=== PATIENT | female | born 1970 | race Caucasian/White ===

== ENCOUNTER 2016-09-20 11:11 | Inpatient (IN) | payer OTHER ==
[2016-09-20 12:23] VITALS: BMI 18.3
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
[2016-09-20] MEDS ORDERED: LOPERAMIDE HCL 2 MG CAPSULE PO PRN (15:09)
[2016-09-20] MEDS ORDERED: MAGNESIUM CITRATE 300 ML BOTTLE PO PRN (15:09)
[2016-09-20] MEDS ORDERED: P-EPHED 60MG/TRIPROLIDI 2.5MG TABLET PO PRN (15:09)
[2016-09-20] MEDS ORDERED: ACETAMINOPHEN 325 MG TABLET (FP) PO PRN (15:09)
[2016-09-20] MEDS ORDERED: NICOTINE POLACRILEX 2 MG GUM BUC PRN (15:09)
[2016-09-20] MEDS ORDERED: MAGNESIUM HYDROX 2400MG/30ML ORAL SUSPENSION 30 ML CUP PO PRN (15:09)
[2016-09-20] MEDS ORDERED: MAG HYDROX/AL HYDROX/SIMETH 30 ML UNIT-DOSE CUP PO PRN (15:09)
[2016-09-20] MEDS ORDERED: guaiFENesin/D-METHORPHAN HB 10 ML UNIT-DOSE CUPS PO PRN (15:09)
[2016-09-20] MEDS ORDERED: MENTHOL/PHENOL 1 EACH UD MM PRN (15:09)
[2016-09-20] MEDS ORDERED: METHADONE HCL 10 MG TABLET (FOR DETOX USE ONLY) PO ONE ×2 (15:18→23:00)
[2016-09-20] MEDS: diazePAM 5 MG TABLET PO PRN ×2 (15:43→22:54)
[2016-09-20] MEDS: NICOTINE 21 MG/24 HOURS TOPICAL PATCH TD SCH (15:44)
[2016-09-20 22:34] LABS: URINE APPEARANCE CLEAR; URINE BILIRUBIN NEGATIVE (NEGATIVE); URINE BLOOD NEGATIVE (NEGATIVE); URINE COLOR YELLOW; URINE GLUCOSE (UA) NEGATIVE (NEGATIVE); URINE KETONE NEGATIVE (NEGATIVE); URINE LEUK ESTERASE NEGATIVE (NEGATIVE); URINE NITRITE NEGATIVE (NEGATIVE); URINE PROTEIN NEGATIVE (NEGATIVE); URINE UROBILINOGEN NEGATIVE E.U./dl (0.2-1.0)
[2016-09-20] MEDS: diphenhydrAMINE HCL 50 MG CAPSULE PO PRN (22:52)
[2016-09-20] MEDS: THIAMINE HCL 100 MG TABLET (FP) PO SCH (22:52)
[2016-09-20] MEDS: SULFAMETHOXAZOLE/TRIMETHOPRIM 800MG/160MG D.S. TABLET PO SCH (22:52)
[2016-09-21] MEDS: diazePAM 5 MG TABLET PO PRN ×5 (01:44→22:42)
[2016-09-21] MEDS: diphenhydrAMINE HCL 50 MG CAPSULE PO PRN (01:44)
[2016-09-21] MEDS ORDERED: METHADONE HCL 10 MG TABLET (FOR DETOX USE ONLY) PO ONE (10:00)
[2016-09-21 10:26] LABS: MCH 31.5 pg (25.7-33.7); MCHC 32.5 g/dl (32.0-36.0); MEAN PLT VOLUME 9.6 fl (7.5-11.1); PLATELET COUNT 268 K/MM3 (134-434); RDW 15.2 % (11.6-15.6); WHITE BLOOD COUNT 6.9 K/mm3 (4.0-10.0)
[2016-09-21 10:51] LABS: ALBUMIN 3.6 g/dl (3.4-5.0); ANION GAP 9 (8-16); BILIRUBIN,TOTAL 0.4 mg/dL (0.2-1.0); CALCIUM 8.6 mg/dL (8.5-10.1); CO2 28 mmol/L (21-32); CREATININE 0.8 mg/dL (0.55-1.02); GLUCOSE,RANDOM 93 mg/dL (74-106); SGOT/AST 30 U/L (15-37); SGPT/ALT 34 U/L (12-78); TOT PROT 7.3 g/dl (6.4-8.2)
[2016-09-21 10:52] LABS: ALK PHOS 68 U/L (45-117)
[2016-09-21] MEDS: SULFAMETHOXAZOLE/TRIMETHOPRIM 800MG/160MG D.S. TABLET PO SCH ×2 (11:08→22:42)
[2016-09-21] MEDS: NICOTINE 21 MG/24 HOURS TOPICAL PATCH TD SCH (11:09)
[2016-09-21] MEDS: PRENATAL VITAMINS W/ FOLIC ACID TABLET (FP) PO SCH (11:09)
[2016-09-21] MEDS: IBUPROFEN 400 MG TABLET (FP) PO PRN (11:17)
[2016-09-21 11:19] LABS: HIV 1 & 2 AB NEGATIVE; HIV 1 AGp24 NEGATIVE
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
--- NOTE | 2016-09-21 13:25 | EKG ---
Test Reason : Blood Pressure : / mmHG Vent. Rate : 076 BPM Atrial Rate : 076 BPM P-R Int : 126 ms QRS Dur : 080 ms QT Int : 432 ms P-R-T Axes : 060 015 002 degrees QTc Int : 486 ms NORMAL SINUS RHYTHM NONSPECIFIC T WAVE ABNORMALITY PROLONGED QT ABNORMAL ECG NO PREVIOUS ECGS AVAILABLE Confirmed by JAMARCUS DENG, DIPIKA ([id number]) on 09/21/2016 1:24:35 PM Referred By: Confirmed By:DIPIKA RICKETTS MD
--- NOTE | 2016-09-21 13:32 | PN ---
BHS COWS - Scale Resting Pulse: 1= [place] 81-100 Sweatin=Flushed/Facial Moisture Restless Observation: 3= Extraneous Movement Pupil Size: 1= Pupils >than Normal Bone or Joint Aches: 2= Severe Diffuse Aches Runny Nose/ Eye Tearin= Runny Nose/Eyes GI Upset > 30mins: 2= Nausea/Diarrhea Tremor Observation of Outstretched Hands: 2= Slight Tremor Visible Yawning Observation: 1= 1-2x During Session Anxiety or Irritability: 2=Irritable/Anxious Goose Flesh Skin: 0=Smooth Skin COWS Score: 18 BHS Progress Note (SOAP) Subjective: ALERT,IRRITABLE,ANXIOUS,TREMOR,PAIN IN THE BODY,JOINT AND BACK,INTERRUPTED SLEEP Objective: 09/21/16 13:30 Vital Signs Temperature 97.7 F 09/21/16 10:31 Pulse Rate 92 H 09/21/16 10:31 Respiratory Rate 18 09/21/16 10:31 Blood Pressure 116/82 09/21/16 10:31 O2 Sat by Pulse Oximetry (%) EKG NSR,INVERTED T IN LEAD 3 NO CHEST PAIN,NO SOB,NO DIZZINESS Laboratory Last Values WBC 6.9 K/mm3 (4.0-10.0) D 09/21/16 05:50 RBC 3.84 M/mm3 (3.60-5.2) 09/21/16 05:50 Hgb 12.1 GM/dL (10.7-15.3) 09/21/16 05:50 Hct 37.2 % (32.4-45.2) 09/21/16 05:50 MCV 97.0 fl (80-96) H 09/21/16 05:50 MCHC 32.5 g/dl (32.0-36.0) 09/21/16 05:50 RDW 15.2 % (11.6-15.6) 09/21/16 05:50 Plt Count 268 K/MM3 (134-434) 09/21/16 05:50 MPV 9.6 fl (7.5-11.1) D 09/21/16 05:50 Sodium 144 mmol/L (136-145) 09/21/16 05:50 Potassium 3.7 mmol/L (3.5-5.1) 09/21/16 05:50 Chloride 107 mmol/L (98-107) 09/21/16 05:50 Carbon Dioxide 28 mmol/L (21-32) 09/21/16 05:50 Anion Gap 9 (8-16) 09/21/16 05:50 BUN 10 mg/dL (7-18) D 09/21/16 05:50 Creatinine 0.8 mg/dL (0.55-1.02) 09/21/16 05:50 Creat Clearance w eGFR > 60 (>60) 09/21/16 05:50 Random Glucose 93 mg/dL (74-106) 09/21/16 05:50 Calcium 8.6 mg/dL (8.5-10.1) 09/21/16 05:50 Total Bilirubin 0.4 mg/dL (0.2-1.0) 09/21/16 05:50 AST 30 U/L (15-37) D 09/21/16 05:50 ALT 34 U/L (12-78) D 09/21/16 05:50 Alkaline Phosphatase 68 U/L (45-117) D 09/21/16 05:50 Total Protein 7.3 g/dl (6.4-8.2) 09/21/16 05:50 Albumin 3.6 g/dl (3.4-5.0) 09/21/16 05:50 Urine Color Yellow 09/20/16 22:00 Urine Appearance Clear 09/20/16 22:00 Urine pH 6.0 (5.0-8.0) 09/20/16 22:00 Ur Specific [place] 1.024 (1.001-1.035) 09/20/16 22:00 Urine Protein Negative (NEGATIVE) 09/20/16 22:00 Urine Glucose (UA) Negative (NEGATIVE) 09/20/16 22:00 Urine Ketones Negative (NEGATIVE) 09/20/16 22:00 Urine Blood Negative (NEGATIVE) 09/20/16 22:00 Urine Nitrite Negative (NEGATIVE) 09/20/16 22:00 Urine Bilirubin Negative (NEGATIVE) 09/20/16 22:00 Urine Urobilinogen Negative E.U./dl (0.2-1.0) 09/20/16 22:00 Ur Leukocyte Esterase Negative (NEGATIVE) 09/20/16 22:00 RPR Titer Nonreactive (NONREACTIVE) 09/21/16 05:50 HIV 1&2 Antibody Screen Negative 09/21/16 09:00 HIV P24 Antigen Negative 09/21/16 09:00 Assessment: 09/21/16 13:31 WITHDRAWAL SYMPTOM Plan: CONTINUE DETOX
[2016-09-21] MEDS: QUEtiapine FUMARATE 50 MG TABLET PO SCH (22:42)
[2016-09-21] MEDS: THIAMINE HCL 100 MG TABLET (FP) PO SCH (22:42)
[2016-09-21] MEDS ORDERED: LIDOCAINE VISCOUS 2% ORAL/TOP 100 ML BOTTLE MM PRN (23:26)
[2016-09-22] MEDS: diazePAM 5 MG TABLET PO PRN ×5 (04:20→22:34)
[2016-09-22] MEDS: SULFAMETHOXAZOLE/TRIMETHOPRIM 800MG/160MG D.S. TABLET PO SCH ×2 (09:49→22:34)
[2016-09-22] MEDS: IBUPROFEN 400 MG TABLET (FP) PO PRN ×2 (09:50→15:45)
[2016-09-22] MEDS: PRENATAL VITAMINS W/ FOLIC ACID TABLET (FP) PO SCH (09:50)
[2016-09-22] MEDS: NICOTINE 21 MG/24 HOURS TOPICAL PATCH TD SCH ×2 (09:52→11:01)
[2016-09-22] MEDS ORDERED: METHADONE HCL 5 MG TABLET (FOR DETOX USE ONLY) PO ONE (10:00)
--- NOTE | 2016-09-22 13:48 | PN ---
BHS COWS - Scale Resting Pulse: 1= [place] 81-100 Sweatin= Chills/Flushing Restless Observation: 3= Extraneous Movement Pupil Size: 1= Pupils >than Normal Bone or Joint Aches: 2= Severe Diffuse Aches Runny Nose/ Eye Tearin= Runny Nose/Eyes GI Upset > 30mins: 3= Vomiting/Diarrhea Tremor Observation of Outstretched Hands: 2= Slight Tremor Visible Yawning Observation: 1= 1-2x During Session Anxiety or Irritability: 2=Irritable/Anxious Goose Flesh Skin: 0=Smooth Skin COWS Score: 18 BHS Progress Note (SOAP) Subjective: alert,irritable,anxious,pain in the body and back,tremor Objective: 09/22/16 13:47 Vital Signs Temperature 97 F L 09/22/16 09:41 Pulse Rate 82 09/22/16 09:41 Respiratory Rate 18 09/22/16 09:41 Blood Pressure 107/69 09/22/16 09:41 O2 Sat by Pulse Oximetry (%) Assessment: 09/22/16 13:47 withdrawal symptom Plan: continue detox
[2016-09-22] MEDS: THIAMINE HCL 100 MG TABLET (FP) PO SCH (22:34)
[2016-09-22] MEDS: QUEtiapine FUMARATE 50 MG TABLET PO SCH (22:34)
[2016-09-23] MEDS: diazePAM 5 MG TABLET PO PRN ×2 (04:54→09:32)
--- NOTE | 2016-09-23 09:04 | PN ---
[facility] Progress Note Note: Psychiatry Attending's note : Approached by patient. Issue : request for gabapentin. Previous progress notes reviewed. Acting out behavior on 09/21/16. Medications revisited.Patient seen. Plan : Seroquel is raised to 50 mg po daily + 100 mg po hs Gabapentin is added :100 mg po tid Discussed with patient. She agrees with this plan.
[2016-09-23] MEDS: IBUPROFEN 400 MG TABLET (FP) PO PRN (09:33)
[2016-09-23] MEDS ORDERED: METHADONE HCL 5 MG TABLET (FOR DETOX USE ONLY) PO ONE (10:00)
[2016-09-23] MEDS: QUEtiapine FUMARATE 50 MG TABLET PO SCH (10:51)
[2016-09-23] MEDS: SULFAMETHOXAZOLE/TRIMETHOPRIM 800MG/160MG D.S. TABLET PO SCH ×2 (10:51→22:36)
[2016-09-23] MEDS: NICOTINE 21 MG/24 HOURS TOPICAL PATCH TD SCH (10:52)
[2016-09-23] MEDS: PRENATAL VITAMINS W/ FOLIC ACID TABLET (FP) PO SCH (10:52)
--- NOTE | 2016-09-23 13:05 | PN ---
BHS Progress Note (SOAP) Subjective: ALERT,IRRITABLE,ANXIOUS,INTERRUPTED SLEEP,TREMOR,PAIN IN THE BODY AND BACK Objective: 09/23/16 13:04 Vital Signs Temperature 97.9 F 09/23/16 11:28 Pulse Rate 95 H 09/23/16 11:28 Respiratory Rate 16 09/23/16 11:28 Blood Pressure 100/58 09/23/16 11:28 O2 Sat by Pulse Oximetry (%) Assessment: 09/23/16 13:04 WITHDRAWAL SYMPTOM Plan: CONTINUE DETOX
[2016-09-23] MEDS: GABAPENTIN 100 MG CAPSULE (FP) PO SCH ×2 (14:52→22:36)
[2016-09-23] MEDS: THIAMINE HCL 100 MG TABLET (FP) PO SCH (22:36)
[2016-09-23] MEDS: QUEtiapine FUMARATE 100 MG TABLET (FP) PO SCH (22:36)
[2016-09-24] MEDS: GABAPENTIN 100 MG CAPSULE (FP) PO SCH ×3 (05:41→22:42)
[2016-09-24] MEDS ORDERED: METHADONE HCL 10 MG TABLET (FOR DETOX USE ONLY) PO ONE (10:00)
[2016-09-24] MEDS: QUEtiapine FUMARATE 50 MG TABLET PO SCH (10:56)
[2016-09-24] MEDS: PRENATAL VITAMINS W/ FOLIC ACID TABLET (FP) PO SCH (10:56)
[2016-09-24] MEDS: SULFAMETHOXAZOLE/TRIMETHOPRIM 800MG/160MG D.S. TABLET PO SCH ×2 (10:56→22:42)
[2016-09-24] MEDS: NICOTINE 21 MG/24 HOURS TOPICAL PATCH TD SCH (10:57)
[2016-09-24] MEDS: IBUPROFEN 400 MG TABLET (FP) PO PRN ×2 (11:00→17:49)
[2016-09-24] MEDS: hydrOXYzine PAMOATE 50 MG CAPSULE (FP) PO PRN ×2 (11:16→17:49)
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
[2016-09-24] MEDS ORDERED: LIDOCAINE 5% TOPICAL PATCH TP ONE (14:30)
[2016-09-24] MEDS: QUEtiapine FUMARATE 100 MG TABLET (FP) PO SCH (22:42)
[2016-09-24] MEDS: THIAMINE HCL 100 MG TABLET (FP) PO SCH (22:42)
[2016-09-25] MEDS ORDERED: METHADONE HCL 5 MG TABLET (FOR DETOX USE ONLY) PO ONE (06:00)
[2016-09-25] MEDS: GABAPENTIN 100 MG CAPSULE (FP) PO SCH (06:19)
[2016-09-25] MEDS: hydrOXYzine PAMOATE 50 MG CAPSULE (FP) PO PRN (06:20)
--- NOTE | 2016-09-25 09:31 | DS ---
[facility] Detox Discharge Summary Admission Date: 09/20/16 Discharge Date: 09/25/16 - History Present History: Alcohol Dependence, Cocaine Dependence, Opioid Dependence - Physical Exam Results Vital Signs: Vital Signs Temperature 97.7 F 09/25/16 06:00 Pulse Rate 83 09/25/16 06:00 Respiratory Rate 16 09/25/16 06:00 Blood Pressure 109/75 09/25/16 06:00 O2 Sat by Pulse Oximetry (%) - Treatment Hospital Course: Detox Protocol Followed, Detoxed Safely, Responded well, Discharged Condition Good, Rehab Referral Accepted - Medication Discharge Medications: Ambulatory Orders Quetiapine Fumarate [Seroquel -] 200 mg PO HS 09/20/16 - Diagnosis (1) Cellulitis of left upper extremity Current Visit: Yes Status: Acute (2) Cocaine dependence, uncomplicated Current Visit: Yes Status: Chronic (3) Nicotine dependence Current Visit: Yes Status: Chronic Qualifiers: Nicotine product type: cigarettes Substance use status: uncomplicated Qualified Code(s): F17.210 - Nicotine dependence, cigarettes, uncomplicated (4) Opioid dependence with withdrawal Current Visit: Yes Status: Chronic (5) Bipolar disorder Current Visit: Yes Status: Chronic Qualifiers: Active/Remission status: in partial remission Most recent bipolar episode type: most recent episode unspecified type Qualified Code(s): F31.70 - Bipolar disorder, currently in remission, most recent episode unspecified (6) Non compliance w medication regimen Current Visit: Yes Status: Chronic (7) Schizophrenia Current Visit: Yes Status: Chronic Qualifiers: Schizophrenia type: unspecified Qualified Code(s): F20.9 - Schizophrenia, unspecified (8) Substance induced mood disorder Current Visit: Yes Status: Chronic (9) Weight decrease Current Visit: Yes Status: Chronic (10) Alcohol dependence with uncomplicated withdrawal Current Visit: Yes Status: Chronic - AMA Did Patient Leave Against Medical Advice: No
[2016-09-25] MEDS ORDERED: LIDOCAINE 5% TOPICAL PATCH TP SCH (10:00)
[2016-09-25] MEDS: PRENATAL VITAMINS W/ FOLIC ACID TABLET (FP) PO SCH (10:41)
[2016-09-25] MEDS: SULFAMETHOXAZOLE/TRIMETHOPRIM 800MG/160MG D.S. TABLET PO SCH (10:41)
[2016-09-25] MEDS: QUEtiapine FUMARATE 50 MG TABLET PO SCH (10:41)
[2016-09-25 10:42] VITALS: BP 156/85; PULSE 95; TEMP 97
[2016-09-25] MEDS: IBUPROFEN 400 MG TABLET (FP) PO PRN (11:29)
[2016-09-25] MEDS: NICOTINE 21 MG/24 HOURS TOPICAL PATCH TD SCH (11:34)
== END 2016-09-25 12:30 | disposition home or self-care (01) | DRG 773 ==
LOC: YASAS 11:11 → Y6N 14:27
PROVIDERS: ADMIT Internal Medicine; ATTEND Internal Medicine
PROC: HZ2ZZZZ Detoxification Services for Substance Abuse Treatment (ICD-10-PCS; principal; 2016-09-20)
DX: F11.23 Opioid dependence with withdrawal (principal); F14.20 Cocaine dependence, uncomplicated; F17.210 Nicotine dependence, cigarettes, uncomplicated; F20.9 Schizophrenia, unspecified; F31.9 Bipolar disorder, unspecified; F19.24 Other psychoactive substance dependence with psychoactive substance-induced mood disorder; J45.909 Unspecified asthma, uncomplicated; L03.113 Cellulitis of right upper limb; R52 Pain, unspecified; Z91.14 Patient's other noncompliance with medication regimen; Z87.898 Personal history of other specified conditions; Z86.2 Personal history of diseases of the blood and blood-forming organs and certain disorders involving the immune mechanism; Z91.5 Personal history of self-harm
CPT/HCPCS: 36415; 80053; 81003; 85027; 86593; 87389; 93005; 93010

== ENCOUNTER 2017-02-21 12:00 | Inpatient (IN) | payer OTHER ==
[2017-02-21 16:29] VITALS: BMI 20.2
--- NOTE | 2017-02-21 20:09 | HP ---
COWS - Scale Resting Pulse: 0= [place] 80 or Below Sweatin= Chills/Flushing Restless Observation: 1= Difficult to Sit Still Pupil Size: 1= Pupils >than Normal Bone or Joint Aches: 2= Severe Diffuse Aches Runny Nose/ Eye Tearin= Nasal Congestion GI Upset > 30mins: 2= Nausea/Diarrhea Tremor Observation: 2= Slight Tremor Visible Yawning Observation: 1= 1-2x During Session Anxiety or Irritability: 2=Irritable/Anxious Goose Flesh Skin: 3=Piloerection COWS Score: 16 Admission ROS S - [facility] Chief Complaint: WITHDRAWAL SYMPTOMS Allergies/Adverse Reactions: Allergies Allergy/AdvReac Type Severity Reaction Status Date / Time shellfish derived Allergy Severe Swelling Verified 02/21/17 18:31 No Known Drug Allergies Allergy Verified 02/21/17 18:31 History of Present Illness: 47 Y.O. WOMAN WITH AN EXTENSIVE HISTORY OF HEROIN DEPENDENCE IS HERE SEEKING DETOX. SHE WAS LAST HERE FOR DETOX IN 09/2016. SHE REPORTS SHE HAS A 10 YEAR HISTORY OF ABSTINENCE. Exam Limitations: No Limitations - Ebola screening Have you traveled outside of the country in the last 21 days: No Have you had contact with anyone from an Ebola affected area: No Have you been sick,other than usual withdrawal symptoms: No - Review of Systems Constitutional: Chills, Loss of Appetite, Night Sweats, Changes in sleep, Unintentional Wgt. Loss EENT: reports: Blurred Vision, Tearing Respiratory: reports: No Symptoms reported Cardiac: reports: Lightheadedness GI: reports: Constipated, Diarrhea, Nausea, Poor Appetite : reports: No Symptoms Reported Musculoskeletal: reports: Back Pain Integumentary: reports: Bruising Neuro: reports: No Symptoms reported Endocrine: reports: No Symptoms Reported Hematology: reports: Anemia Psychiatric: reports: Orientated x3 Other Systems: Reviewed and Negative Patient History - Patient Medical History Hx Anemia: Yes (NO MEDS) Hx Asthma: No Hx Chronic Obstructive Pulmonary Disease (COPD): No Hx Cancer: No Hx Cardiac Disorders: No Hx Congestive Heart Failure: No Hx Hypertension: No Hx Hypercholesterolemia: No Hx Pacemaker: No HX Cerebrovascular Accident: No Hx Seizures: Yes (CAN'T RECALL WHEN WAS LAST SZ ) Hx Dementia: No Hx Diabetes: No Hx Gastrointestinal Disorders: No Hx Liver Disease: No Hx Genitourinary Disorders: No Hx Sexually Transmitted Disorders: No Hx Renal Disease (ESRD): No Hx Thyroid Disease: No Hx Human Immunodeficiency Virus (HIV): No (NEGATIVE HX; Last Tested: 06/2016.) Hx Hepatitis C: No (Last Tested: 06/2016: NEGATIVE.) Hx Depression: Yes Hx Suicide Attempt: Yes (cut left hand at age 38; PT. DENIES CURRENT SI / HI.) Hx Bipolar Disorder: Yes (Not on meds) Hx Schizophrenia: Yes (Not on meds ) - Patient Surgical History Past Surgical History: Yes Hx Neurologic Surgery: No Hx Cataract Extraction: No Hx Cardiac Surgery: No Hx Lung Surgery: No Hx Breast Surgery: No Hx Breast Biopsy: No Hx Abdominal Surgery: No Hx Appendectomy: No Hx Cholecystectomy: No Hx Genitourinary Surgery: No Hx Section: Yes (@ AGE 30.) Hx Orthopedic Surgery: No Hx Hysterectomy: No Anesthesia Reaction: No - PPD History Previous Implant?: Yes Date: 01/14/16 Results: 0 mm PPD to be Administered?: Yes - Reproductive History Patient is a Female of Child Bearing Age (11 -55 yrs old): Yes Last Menstrual Period: 09/12/16 Patient : No - Smoking Cessation Smoking history: Current every day smoker Have you smoked in the past 12 months: Yes Aproximately how many cigarettes per day: 20 Cigars Per Day: 0 Hx Chewing Tobacco Use: No Initiated information on smoking cessation: No 'Breaking Loose' booklet given: 02/21/17 - Substance & Tx. History Hx Alcohol Use: No Hx Substance Use: Yes Substance Use Type: Cocaine, Heroin, Marijuana Hx Substance Use Treatment: Yes (Detox: 2-3 mon. ago @ [facility]. Rehab:6 mon. ago but does not recall where) - Substances Abused Alcohol Route: Oral Frequency: Daily Amount used: liquor- 1 pint Age of first use: 12 Date of Last Use: 02/20/17 Heroin Route: Injection Frequency: Daily Amount used: 15 bags Age of first use: 15 Date of Last Use: 02/21/17 Cocaine Route: Smoking Frequency: Daily Amount used: 4 bags Age of first use: 27 Date of Last Use: 02/21/17 Family Disease History - Family Disease History Family Disease History: Other: Father ( HIV), Mother (LOST CONTACT) Admission Physical Exam S - Vital Signs Vital Signs: Vital Signs - 24 hr 02/21/17 16:26 Temperature 96 F L Pulse Rate 71 Respiratory 20 Rate Blood Pressure 100/68 - Physical General Appearance: Yes: Disheveled, Thin, Tremorous, Anxious HEENTM: Yes: Hearing grossly Normal, Normal ENT Inspection, Normocephalic, Normal Voice Respiratory: Yes: Chest Non-Tender, Lungs Clear, Normal Breath Sounds, No Respiratory Distress, No Accessory Muscle Use Neck: Yes: No masses,lesions,Nodules, Trachea in good position Breast: Yes: Breast Exam Deferred Cardiology: Yes: Regular Rhythm, Regular Rate Abdominal: Yes: Normal Bowel Sounds, Non Tender, Flat, Soft Genitourinary: Yes: Other (No complaints reported) Back: Yes: Normal Inspection Musculoskeletal: Yes: full range of Motion, Gait Steady Extremities: Yes: Normal Capillary Refill, Normal Inspection, Normal Range of Motion 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, Normal Mood/Affect, Normal Response Integumentary: Yes: Normal Color, Dry, Warm, Track [place] Lymphatic: Yes: Within Normal Limits - Diagnostic (1) Cocaine dependence, uncomplicated Current Visit: Yes Status: Chronic (2) Nicotine dependence Current Visit: Yes Status: Chronic Qualifiers: Nicotine product type: cigarettes Substance use status: uncomplicated Qualified Code(s): F17.210 - Nicotine dependence, cigarettes, uncomplicated (3) Opioid dependence with withdrawal Current Visit: Yes Status: Chronic (4) Weight decrease Current Visit: Yes Status: Chronic Cleared for Admission [facility] - Detox or Rehab [facility] Level of Care: Medically Managed Detox Regimen/Protocol: Methadone [facility] Breath Alcohol Content Breath Alcohol Content: 0 Urine Pregancy Test - Result Urine Test Results: Negative- NO Line Present Urine Drug Screen - Results Drug Screen Negative: No Urine Drug Screen Results: ARMIN-Cocaine, OPI-Opiates, MTD-Methadone
[2017-02-21] MEDS ORDERED: NICOTINE POLACRILEX 2 MG GUM BC PRN (20:18)
[2017-02-21] MEDS ORDERED: hydrOXYzine PAMOATE 50 MG CAPSULE (FP) PO PRN (20:18)
[2017-02-21] MEDS ORDERED: MAGNESIUM CITRATE 300 ML BOTTLE PO PRN (20:18)
[2017-02-21] MEDS ORDERED: MAGNESIUM HYDROX 2400MG/30ML ORAL SUSPENSION 30 ML CUP PO PRN (20:18)
[2017-02-21] MEDS ORDERED: LOPERAMIDE HCL 2 MG CAPSULE PO PRN (20:18)
[2017-02-21] MEDS ORDERED: MENTHOL/PHENOL 1 EACH UD MM PRN (20:18)
[2017-02-21] MEDS ORDERED: P-EPHED 60MG/TRIPROLIDI 2.5MG TABLET PO PRN (20:18)
[2017-02-21] MEDS ORDERED: METHADONE HCL 10 MG TABLET (FOR DETOX USE ONLY) PO ONE ×2 (20:18→23:00)
[2017-02-21] MEDS ORDERED: MAG HYDROX/AL HYDROX/SIMETH 30 ML UNIT-DOSE CUP PO PRN (20:18)
[2017-02-21] MEDS ORDERED: guaiFENesin/D-METHORPHAN HB 10 ML UNIT-DOSE CUPS PO PRN (20:18)
[2017-02-21] MEDS: diazePAM 5 MG TABLET PO PRN (20:52)
[2017-02-21 22:32] LABS: URINE APPEARANCE CLEAR; URINE BILIRUBIN NEGATIVE (NEGATIVE); URINE BLOOD NEGATIVE (NEGATIVE); URINE COLOR YELLOW; URINE GLUCOSE (UA) NEGATIVE (NEGATIVE); URINE KETONE TRACE (NEGATIVE); URINE LEUK ESTERASE NEGATIVE (NEGATIVE); URINE NITRITE NEGATIVE (NEGATIVE); URINE UROBILINOGEN NEGATIVE mg/dL (0.2-1.0)
[2017-02-21 22:44] LABS: URINE PROTEIN 1+ (NEGATIVE)
[2017-02-21] MEDS: THIAMINE HCL 100 MG TABLET (FP) PO SCH (22:57)
[2017-02-21 23:23] LABS: CALCIUM OXALATE CRYSTALS MANY /hpf (NONE SEEN); URINE MUCUS MODERATE; URINE RBC 2 /hpf (0-3); URINE WBC 3 /hpf (3-5)
[2017-02-22] MEDS: IBUPROFEN 400 MG TABLET (FP) PO PRN (08:38)
[2017-02-22] MEDS: diazePAM 5 MG TABLET PO PRN ×3 (08:38→23:00)
[2017-02-22] MEDS ORDERED: CYCLOBENZAPRINE HCL 10 MG TABLET (FP) PO ONE (09:14)
[2017-02-22] MEDS ORDERED: cloNIDine HCL 0.1 MG TABLET PO ONE (09:15)
[2017-02-22] MEDS ORDERED: METHADONE HCL 10 MG TABLET (FOR DETOX USE ONLY) PO ONE (10:00)
[2017-02-22 11:06] LABS: MCHC 33.2 g/dl (32.0-36.0); MEAN CELL VOLUME 93.5 fl (80-96); MEAN PLT VOLUME 8.1 fl (7.5-11.1); PLATELET COUNT 325 K/MM3 (134-434); WHITE BLOOD COUNT 4.4 K/mm3 (4.0-10.0)
[2017-02-22] MEDS: PRENATAL VITAMINS W/ FOLIC ACID TABLET (FP) PO SCH (11:13)
[2017-02-22] MEDS: NICOTINE 21 MG/24 HOURS TOPICAL PATCH TD SCH (11:15)
[2017-02-22] MEDS: cloNIDine HCL 0.1 MG TABLET PO SCH ×2 (11:15→23:00)
[2017-02-22 11:16] LABS: ALBUMIN 2.8 g/dl (3.4-5.0); ALK PHOS 52 U/L (45-117); ANION GAP 5 (8-16); BILIRUBIN,TOTAL 0.5 mg/dL (0.2-1.0); CALCIUM 8.4 mg/dL (8.5-10.1); CO2 31 mmol/L (21-32); CREATININE 0.6 mg/dL (0.55-1.02); GLUCOSE,RANDOM 82 mg/dL (74-106); SGOT/AST 19 U/L (15-37); SGPT/ALT 16 U/L (12-78); TOT PROT 6.1 g/dl (6.4-8.2)
--- NOTE | 2017-02-22 14:43 | CONSULT ---
[facility] Psychiatric Consult - Data Date of interview: 02/22/17 Admission source: [facility] Identifying data: Readmission to [facility] for this 46 y/o female seeking detox treatment on for heroin and cocaine dependence.Patient is ,a mother of six,domiciled,unemployed and supported on SSI benefits. Substance Abuse History: Presents with a long history of heroin abuse since age 15 (IV use daily),cocaine since age 27 and alcohol from age 12 onwards.Smokes one pack of cigarettes daily.Sporadic use of marijuana. Medical History: Significant for anemia and bronchial asthma. Psychiatric History: Diagnosed with Bipolar Disorder.History of multiple psychiatric hospitalizations ([facility], [facility] in [place]).Patient has beeen lost to follow up for months.History of multiple suicide attempts (wrist-cutting,overdoses with drugs or medications). Physical/Sexual Abuse/Trauma History: Patient declines to discus this domain. Additional Comment: Urine Drug Screen Results: ARMIN-Cocaine, OPI-Opiates, MTD- Methadone.Noted. Mental Status Exam - Mental Status Exam Alert and Oriented to: Time, Place, Person Cognitive Function: Good Patient Appearance: Unkempt, Disheveled (thin) Mood: Withdrawn Affect: Constricted Patient Behavior: Sedated (moderately), Fatigued Speech Pattern: Delayed, Slurred Voice Loudness: Moderately Soft/Quiet Thought Process: Goal Oriented (once awakened) Thought Disorder: Not Present Hallucinations: Denies Suicidal Ideation: Denies Homicidal Ideation: Denies Insight/Judgement: Poor Sleep: Well Appetite: Poor, Weight loss Muscle strength/Tone: Normal Gait/Station: Normal Psychiatric Findings - Problem List ([place] 1, 2,3) (1) Alcohol dependence with uncomplicated withdrawal Current Visit: Yes Status: Acute (2) Opioid dependence with withdrawal Current Visit: Yes Status: Acute (3) Cocaine dependence, uncomplicated Current Visit: Yes Status: Acute (4) Nicotine dependence Current Visit: Yes Status: Acute Qualifiers: Nicotine product type: cigarettes Substance use status: uncomplicated Qualified Code(s): F17.210 - Nicotine dependence, cigarettes, uncomplicated (5) Substance induced mood disorder Current Visit: Yes Status: Acute (6) Non compliance w medication regimen Current Visit: Yes Status: Chronic (7) Bipolar disorder Current Visit: No Status: Chronic Qualifiers: Active/Remission status: in partial remission Most recent bipolar episode type: most recent episode unspecified type Qualified Code(s): F31.70 - Bipolar disorder, currently in remission, most recent episode unspecified Comment: Historical diagnosis.Patient declines medications. - Initial Treatment Plan Initial Treatment Plan: Psychoeducation.Detoxification.Observation.Review of pharmacy claims : no recent data (last activity was on 09/2016).
--- NOTE | 2017-02-22 16:12 | PN ---
S COWS - Scale Resting Pulse: 0= [place] 80 or Below Sweatin= Chills/Flushing Restless Observation: 3= Extraneous Movement Pupil Size: 2= Moderately Dilated Bone or Joint Aches: 2= Severe Diffuse Aches Runny Nose/ Eye Tearin= Nasal Congestion GI Upset > 30mins: 2= Nausea/Diarrhea Tremor Observation of Outstretched Hands: 2= Slight Tremor Visible Yawning Observation: 1= 1-2x During Session Anxiety or Irritability: 2=Irritable/Anxious Goose Flesh Skin: 0=Smooth Skin COWS Score: 16 BHS Progress Note (SOAP) Subjective: alert,irritable,anxious,interrupted sleep,tremor,pin in the body and back Objective: 02/22/17 16:10 Vital Signs Temperature 97.7 F 02/22/17 14:43 Pulse Rate 80 02/22/17 14:43 Respiratory Rate 18 02/22/17 14:43 Blood Pressure 107/76 02/22/17 14:43 O2 Sat by Pulse Oximetry (%) ekg nsr,prolong qt Laboratory Last Values WBC 4.4 K/mm3 (4.0-10.0) D 02/22/17 07:30 RBC 3.34 M/mm3 (3.60-5.2) L 02/22/17 07:30 Hgb 10.4 GM/dL (10.7-15.3) L D 02/22/17 07:30 Hct 31.3 % (32.4-45.2) L D 02/22/17 07:30 MCV 93.5 fl (80-96) 02/22/17 07:30 MCH 31.0 pg (25.7-33.7) 02/22/17 07:30 MCHC 33.2 g/dl (32.0-36.0) 02/22/17 07:30 RDW 15.0 % (11.6-15.6) 02/22/17 07:30 Plt Count 325 K/MM3 (134-434) D 02/22/17 07:30 MPV 8.1 fl (7.5-11.1) D 02/22/17 07:30 Sodium 144 mmol/L (136-145) 02/22/17 07:30 Potassium 3.6 mmol/L (3.5-5.1) 02/22/17 07:30 Chloride 108 mmol/L (98-107) H 02/22/17 07:30 Carbon Dioxide 31 mmol/L (21-32) 02/22/17 07:30 Anion Gap 5 (8-16) L 02/22/17 07:30 BUN 8 mg/dL (7-18) 02/22/17 07:30 Creatinine 0.6 mg/dL (0.55-1.02) D 02/22/17 07:30 Creat Clearance w eGFR > 60 (>60) 02/22/17 07:30 Random Glucose 82 mg/dL (74-106) 02/22/17 07:30 Calcium 8.4 mg/dL (8.5-10.1) L 02/22/17 07:30 Total Bilirubin 0.5 mg/dL (0.2-1.0) D 02/22/17 07:30 AST 19 U/L (15-37) D 02/22/17 07:30 ALT 16 U/L (12-78) D 02/22/17 07:30 Alkaline Phosphatase 52 U/L (45-117) D 02/22/17 07:30 Total Protein 6.1 g/dl (6.4-8.2) L 02/22/17 07:30 Albumin 2.8 g/dl (3.4-5.0) L D 02/22/17 07:30 Urine Color Yellow 02/21/17 20:36 Urine Appearance Clear 02/21/17 20:36 Urine pH 5.0 (5.0-8.0) 02/21/17 20:36 Ur Specific [place] >= 1.030 (1.005-1.025) H 02/21/17 20:36 Urine Protein 1+ (NEGATIVE) H 02/21/17 20:36 Urine Glucose (UA) Negative (NEGATIVE) 02/21/17 20:36 Urine Ketones Trace (NEGATIVE) H 02/21/17 20:36 Urine Blood Negative (NEGATIVE) 02/21/17 20:36 Urine Nitrite Negative (NEGATIVE) 02/21/17 20:36 Urine Bilirubin Negative (NEGATIVE) 02/21/17 20:36 Urine Urobilinogen Negative mg/dL (0.2-1.0) 02/21/17 20:36 Ur Leukocyte Esterase Negative (NEGATIVE) 02/21/17 20:36 Urine RBC 2 /hpf (0-3) 02/21/17 20:36 Urine WBC 3 /hpf (3-5) 02/21/17 20:36 Ur Epithelial Cells Rare /hpf (FEW) 02/21/17 20:36 Calcium Oxalate Crystal Many /hpf (NONE SEEN) 02/21/17 20:36 Urine Mucus Moderate 02/21/17 20:36 RPR Titer Nonreactive (NONREACTIVE) 02/22/17 07:30 Assessment: 02/22/17 16:11 withdrawal symptom Plan: continue detox
[2017-02-22] MEDS: CYCLOBENZAPRINE HCL 10 MG TABLET (FP) PO PRN (23:00)
[2017-02-22] MEDS: THIAMINE HCL 100 MG TABLET (FP) PO SCH (23:00)
[2017-02-23] MEDS: IBUPROFEN 400 MG TABLET (FP) PO PRN (05:40)
[2017-02-23] MEDS: diazePAM 5 MG TABLET PO PRN ×3 (05:40→20:28)
[2017-02-23] MEDS ORDERED: METHADONE HCL 5 MG TABLET (FOR DETOX USE ONLY) PO ONE (10:00)
[2017-02-23] MEDS: CYCLOBENZAPRINE HCL 10 MG TABLET (FP) PO PRN (10:46)
[2017-02-23] MEDS: PRENATAL VITAMINS W/ FOLIC ACID TABLET (FP) PO SCH (10:46)
[2017-02-23] MEDS: NICOTINE 21 MG/24 HOURS TOPICAL PATCH TD SCH (10:47)
[2017-02-23] MEDS: cloNIDine HCL 0.1 MG TABLET PO SCH ×2 (10:47→22:30)
--- NOTE | 2017-02-23 12:19 | PN ---
BHS COWS - Scale Resting Pulse: 1= [place] 81-100 Sweatin= Chills/Flushing Restless Observation: 3= Extraneous Movement Pupil Size: 1= Pupils >than Normal Bone or Joint Aches: 2= Severe Diffuse Aches Runny Nose/ Eye Tearin= Runny Nose/Eyes GI Upset > 30mins: 2= Nausea/Diarrhea Tremor Observation of Outstretched Hands: 2= Slight Tremor Visible Yawning Observation: 1= 1-2x During Session Anxiety or Irritability: 2=Irritable/Anxious Goose Flesh Skin: 0=Smooth Skin COWS Score: 17 BHS Progress Note (SOAP) Subjective: ALERT,IRRITABLE,ANXIOUS,INTERRUPTED SLEEP,TREMOR,PAIN IN THE BODY Objective: 02/23/17 12:18 Vital Signs Temperature 98.2 F 02/23/17 10:00 Pulse Rate 82 02/23/17 10:00 Respiratory Rate 18 02/23/17 10:00 Blood Pressure 105/72 02/23/17 10:00 O2 Sat by Pulse Oximetry (%) Assessment: 02/23/17 12:18 WITHDRAWAL SYMPTOM Plan: CONTINUE DETOX
[2017-02-23] MEDS: diphenhydrAMINE HCL 50 MG CAPSULE PO PRN (22:30)
[2017-02-23] MEDS: THIAMINE HCL 100 MG TABLET (FP) PO SCH (22:32)
[2017-02-24] MEDS: IBUPROFEN 400 MG TABLET (FP) PO PRN (02:33)
[2017-02-24] MEDS: diazePAM 5 MG TABLET PO PRN ×3 (02:33→14:40)
[2017-02-24] MEDS: CYCLOBENZAPRINE HCL 10 MG TABLET (FP) PO PRN ×2 (08:36→22:22)
[2017-02-24] MEDS ORDERED: METHADONE HCL 5 MG TABLET (FOR DETOX USE ONLY) PO ONE (10:00)
[2017-02-24] MEDS: PRENATAL VITAMINS W/ FOLIC ACID TABLET (FP) PO SCH (10:31)
[2017-02-24] MEDS: cloNIDine HCL 0.1 MG TABLET PO SCH ×2 (10:31→22:22)
[2017-02-24] MEDS: NICOTINE 21 MG/24 HOURS TOPICAL PATCH TD SCH (10:32)
--- NOTE | 2017-02-24 10:42 | PN ---
BHS Progress Note (SOAP) Subjective: body aches sweats agitation interrupted sleep shakes Objective: 02/24/17 10:42 Vital Signs Temperature 97.9 F 02/24/17 10:00 Pulse Rate 82 02/24/17 10:00 Respiratory Rate 18 02/24/17 10:00 Blood Pressure 108/74 02/24/17 10:00 O2 Sat by Pulse Oximetry (%) Laboratory Tests 02/21/17 02/22/17 02/22/17 20:36 07:30 07:30 WBC 4.4 D RBC 3.34 L Hgb 10.4 L D Hct 31.3 L D MCV 93.5 MCH 31.0 MCHC 33.2 RDW 15.0 Plt Count 325 D MPV 8.1 D Sodium 144 Potassium 3.6 Chloride 108 H Carbon Dioxide 31 Anion Gap 5 L BUN 8 Creatinine 0.6 D Creat Clearance w eGFR > 60 Random Glucose 82 Calcium 8.4 L Total Bilirubin 0.5 D AST 19 D ALT 16 D Alkaline Phosphatase 52 D Total Protein 6.1 L Albumin 2.8 L D Urine Color Yellow Urine Appearance Clear Urine pH 5.0 Ur Specific [place] >= 1.030 H Urine Protein 1+ H Urine Glucose (UA) Negative Urine Ketones Trace H Urine Blood Negative Urine Nitrite Negative Urine Bilirubin Negative Urine Urobilinogen Negative Ur Leukocyte Esterase Negative Urine RBC 2 Urine WBC 3 Ur Epithelial Cells Rare Calcium Oxalate Crystal Many Urine Mucus Moderate RPR Titer 02/22/17 07:30 WBC RBC Hgb Hct MCV MCH MCHC RDW Plt Count MPV Sodium Potassium Chloride Carbon Dioxide Anion Gap BUN Creatinine Creat Clearance w eGFR Random Glucose Calcium Total Bilirubin AST ALT Alkaline Phosphatase Total Protein Albumin Urine Color Urine Appearance Urine pH Ur Specific [place] Urine Protein Urine Glucose (UA) Urine Ketones Urine Blood Urine Nitrite Urine Bilirubin Urine Urobilinogen Ur Leukocyte Esterase Urine RBC Urine WBC Ur Epithelial Cells Calcium Oxalate Crystal Urine Mucus RPR Titer Nonreactive awake/alert ambulating no acute distress Assessment: 02/24/17 10:43 withdrawal sx Plan: continue detox increase fluids naproxen 500mg bid
[2017-02-24] MEDS: NAPROXEN 500 MG TABLET (FP) PO SCH ×2 (11:35→22:22)
--- NOTE | 2017-02-24 12:01 | EKG ---
Test Reason : Blood Pressure : / mmHG Vent. Rate : 066 BPM Atrial Rate : 066 BPM P-R Int : 132 ms QRS Dur : 084 ms QT Int : 460 ms P-R-T Axes : 058 024 003 degrees QTc Int : 482 ms NORMAL SINUS RHYTHM PROLONGED QT ABNORMAL ECG WHEN COMPARED WITH ECG OF 20-SEP-2016 16:03, T WAVE INVERSION NOW EVIDENT IN ANTERIOR LEADS Confirmed by LIZABETH DENG, ROSAS ([id number]) on 02/24/2017 12:01:26 PM Referred By: Confirmed By:ROSAS BARONE MD
[2017-02-24] MEDS: diphenhydrAMINE HCL 50 MG CAPSULE PO PRN (22:21)
[2017-02-24] MEDS: THIAMINE HCL 100 MG TABLET (FP) PO SCH (22:22)
[2017-02-25] MEDS ORDERED: METHADONE HCL 10 MG TABLET (FOR DETOX USE ONLY) PO ONE (10:00)
[2017-02-25] MEDS: cloNIDine HCL 0.1 MG TABLET PO SCH ×2 (10:58→22:36)
[2017-02-25] MEDS: NICOTINE 21 MG/24 HOURS TOPICAL PATCH TD SCH (10:58)
[2017-02-25] MEDS: PRENATAL VITAMINS W/ FOLIC ACID TABLET (FP) PO SCH (10:58)
[2017-02-25] MEDS: NAPROXEN 500 MG TABLET (FP) PO SCH ×2 (10:58→22:35)
--- NOTE | 2017-02-25 11:29 | PN ---
BHS Progress Note (SOAP) Subjective: feeling a bit better body aches little sweats Objective: 02/25/17 11:28 Vital Signs Temperature 98.2 F 02/25/17 09:58 Pulse Rate 79 02/25/17 09:58 Respiratory Rate 16 02/25/17 09:58 Blood Pressure 110/64 02/25/17 09:58 O2 Sat by Pulse Oximetry (%) awake/alert ambulating no acute distress Assessment: 02/25/17 11:29 withdrawal sx Plan: continue detox increase fluids d/c in am
[2017-02-25] MEDS: ACETAMINOPHEN 325 MG TABLET (FP) PO PRN (15:22)
[2017-02-25] MEDS: THIAMINE HCL 100 MG TABLET (FP) PO SCH (22:35)
[2017-02-25] MEDS: CYCLOBENZAPRINE HCL 10 MG TABLET (FP) PO PRN (22:36)
[2017-02-25] MEDS: diphenhydrAMINE HCL 50 MG CAPSULE PO PRN (22:36)
[2017-02-26] MEDS ORDERED: METHADONE HCL 5 MG TABLET (FOR DETOX USE ONLY) PO ONE (06:00)
[2017-02-26] MEDS: CYCLOBENZAPRINE HCL 10 MG TABLET (FP) PO PRN (06:08)
[2017-02-26] MEDS: ACETAMINOPHEN 325 MG TABLET (FP) PO PRN (06:09)
--- NOTE | 2017-02-26 08:46 | DS ---
[facility] Detox Discharge Summary Admission Date: 02/21/17 Discharge Date: 02/26/17 - History Present History: Alcohol Dependence, Cocaine Dependence, Opioid Dependence - Physical Exam Results Vital Signs: Vital Signs Temperature 97.8 F 02/26/17 06:34 Pulse Rate 68 02/26/17 06:34 Respiratory Rate 18 02/26/17 06:34 Blood Pressure 96/64 02/26/17 06:34 O2 Sat by Pulse Oximetry (%) - Treatment Hospital Course: Detox Protocol Followed, Detoxed Safely, Responded well, Discharged Condition Good, Rehab Referral Accepted - Medication Discharge Medications: Ambulatory Orders Quetiapine Fumarate [Seroquel -] 200 mg PO HS 09/20/16 Gabapentin [Neurontin -] 100 mg PO TID #90 capsule 09/25/16 - Diagnosis (1) Alcohol dependence with uncomplicated withdrawal Current Visit: Yes Status: Chronic (2) Cocaine dependence, uncomplicated Current Visit: Yes Status: Chronic (3) Nicotine dependence Current Visit: Yes Status: Chronic Qualifiers: Nicotine product type: cigarettes Substance use status: uncomplicated Qualified Code(s): F17.210 - Nicotine dependence, cigarettes, uncomplicated (4) Opioid dependence with withdrawal Current Visit: Yes Status: Acute (5) Substance induced mood disorder Current Visit: Yes Status: Acute (6) Non compliance w medication regimen Current Visit: Yes Status: Chronic (7) Weight decrease Current Visit: Yes Status: Chronic (8) Bipolar disorder Current Visit: No Status: Chronic Qualifiers: Active/Remission status: in partial remission Most recent bipolar episode type: most recent episode unspecified type Qualified Code(s): F31.70 - Bipolar disorder, currently in remission, most recent episode unspecified (9) Schizophrenia Current Visit: No Status: Chronic Qualifiers: Schizophrenia type: unspecified Qualified Code(s): F20.9 - Schizophrenia, unspecified - AMA Did Patient Leave Against Medical Advice: No
[2017-02-26] MEDS: NAPROXEN 500 MG TABLET (FP) PO SCH (09:13)
[2017-02-26] MEDS: cloNIDine HCL 0.1 MG TABLET PO SCH (09:13)
[2017-02-26] MEDS: PRENATAL VITAMINS W/ FOLIC ACID TABLET (FP) PO SCH (09:13)
[2017-02-26] MEDS: NICOTINE 21 MG/24 HOURS TOPICAL PATCH TD SCH (09:14)
[2017-02-26 10:23] VITALS: BP 106/73; PULSE 75; TEMP 97.7
== END 2017-02-26 09:17 | disposition home or self-care (01) | DRG 773 ==
LOC: YASAS 12:00 → Y6N 18:43
PROVIDERS: ADMIT Internal Medicine; ATTEND Internal Medicine
PROC: HZ2ZZZZ Detoxification Services for Substance Abuse Treatment (ICD-10-PCS; principal; 2017-02-21)
DX: F11.23 Opioid dependence with withdrawal (principal); F10.230 Alcohol dependence with withdrawal, uncomplicated; F14.20 Cocaine dependence, uncomplicated; F17.210 Nicotine dependence, cigarettes, uncomplicated; F19.24 Other psychoactive substance dependence with psychoactive substance-induced mood disorder; F31.70 Bipolar disorder, currently in remission, most recent episode unspecified; F20.9 Schizophrenia, unspecified; D64.9 Anemia, unspecified; Z91.14 Patient's other noncompliance with medication regimen; Z87.898 Personal history of other specified conditions; Z91.013 Allergy to seafood; Z86.69 Personal history of other diseases of the nervous system and sense organs; Z91.5 Personal history of self-harm
CPT/HCPCS: 36415; 80053; 81003; 81015; 85027; 86593; 93005; 93010

== ENCOUNTER 2017-05-25 12:35 | Inpatient (IN) | payer OTHER ==
[2017-05-25 13:12] VITALS: BMI 19.7
--- NOTE | 2017-05-25 14:32 | HP ---
CIWA Score - CIWA Score Nausea/Vomitin Muscle Tremors: 2 Anxiety: 4-Mod. Anxious/Guarded Agitation: 2 Paroxysmal Sweats: 1-Minimal Palms Moist Orientation: 2-Disoriented Date<2 days Tacttile Disturbances: 1-Very Mild Itch/Numbness Auditory Disturbances: 1-Very Mild Visual Disturbances: 1-Very Mild Sensitivity Headache: 2-Mild CIWA-Ar Total Score: 18 Admission ROS BHS - HPI Chief Complaint: WITHDRAWAL SYMPTOMS Allergies/Adverse Reactions: Allergies Allergy/AdvReac Type Severity Reaction Status Date / Time shellfish derived Allergy Severe Swelling Verified 02/21/17 18:31 No Known Drug Allergies Allergy Verified 02/21/17 18:31 History of Present Illness: 47 Y.O. WOMAN WITH A HISTORY OF HEROIN, COCAINE AND ALCOHOL DEPENDENCE IS HERE SEEKING DETOX. SHE HAS HAD MULTIPLE ADMISSIONS HERE FOR DETOX AND HER LAST BEING IN February,. SHE REPORTS SHE IS CURRENTLY ENROLLED IN A MMTP AT [facility] AND IS RECEIVING 80MG OF METHADONE BUT HAS BEEN ABSENT FROM THE PROGRAM FOR 3 DAYS. - Ebola screening Have you traveled outside of the country in the last 21 days: No Have you had contact with anyone from an Ebola affected area: No Have you been sick,other than usual withdrawal symptoms: No Do you have a fever: No - Review of Systems Constitutional: Chills, Loss of Appetite, Unintentional Wgt. Loss EENT: reports: Tearing, Nose Congestion Respiratory: reports: Shortness of Breath Cardiac: reports: Lightheadedness GI: reports: Diarrhea, Poor Appetite : reports: No Symptoms Reported Musculoskeletal: reports: Back Pain, Joint Pain Integumentary: reports: No Symptoms Reported Neuro: reports: Headache Endocrine: reports: No Symptoms Reported Hematology: reports: Anemia (SHERLEY), Easy Bruising Psychiatric: reports: Agitated, Anxious, other (BIPOLAR) Other Systems: Reviewed and Negative Patient History - Patient Medical History Hx Anemia: Yes (NO MEDS) Hx Asthma: No Hx Chronic Obstructive Pulmonary Disease (COPD): No Hx Cancer: No Hx Cardiac Disorders: No Hx Congestive Heart Failure: No Hx Hypertension: No Hx Hypercholesterolemia: No Hx Pacemaker: No HX Cerebrovascular Accident: No Hx Seizures: Yes (CAN'T RECALL WHEN WAS LAST SZ ) Hx Dementia: No Hx Diabetes: No Hx Gastrointestinal Disorders: No Hx Liver Disease: No Hx Genitourinary Disorders: No Hx Sexually Transmitted Disorders: No Hx Renal Disease (ESRD): No Hx Thyroid Disease: No Hx Human Immunodeficiency Virus (HIV): No (NEGATIVE HX) Hx Hepatitis C: No (NEGATIVE ASHA ) Hx Depression: Yes Hx Suicide Attempt: Yes (cut left hand at age 38; PT. DENIES CURRENT SI / HI.) Hx Bipolar Disorder: Yes (Not on meds) Hx Schizophrenia: Yes (Not on meds ) - Patient Surgical History Past Surgical History: Yes Hx Neurologic Surgery: No Hx Cataract Extraction: No Hx Cardiac Surgery: No Hx Lung Surgery: No Hx Breast Surgery: No Hx Breast Biopsy: No Hx Abdominal Surgery: No Hx Appendectomy: No Hx Cholecystectomy: No Hx Genitourinary Surgery: No Hx Section: Yes (@ AGE 30.) Hx Orthopedic Surgery: No Hx Hysterectomy: No Anesthesia Reaction: No - PPD History Previous Implant?: Yes Documented Results: Negative w/proof Date: 02/23/17 Results: 0 mm PPD to be Administered?: No - Reproductive History Patient is a Female of Child Bearing Age (11 -55 yrs old): No Last Menstrual Period: 05/12/17 Patient : No - Smoking Cessation Smoking history: Current every day smoker Have you smoked in the past 12 months: Yes Aproximately how many cigarettes per day: 20 Cigars Per Day: 0 Hx Chewing Tobacco Use: No Initiated information on smoking cessation: Yes 'Breaking Loose' booklet given: 05/25/17 - Substance & Tx. History Hx Alcohol Use: Yes Hx Substance Use: Yes Substance Use Type: Alcohol, Cocaine, Heroin Hx Substance Use Treatment: Yes (DETOX: 02/2017 REHAB: 2016) - Substances Abused Alcohol Route: Oral Frequency: Daily Amount used: liquor- 2 pints Age of first use: 14 Date of Last Use: 05/24/17 Cocaine Route: Smoking Frequency: Daily Amount used: 4 bags Age of first use: 42 Date of Last Use: 05/25/17 Family Disease History - Family Disease History Family Disease History: Other: Father ( HIV), Mother (LOST CONTACT) Admission Physical Exam BHS - Vital Signs Vital Signs: Vital Signs - 24 hr 05/25/17 13:06 Temperature 96.9 F L Pulse Rate 112 H Respiratory 18 Rate Blood Pressure 112/75 - Physical General Appearance: Yes: Thin, Irritable, Sweating, Anxious HEENTM: Yes: Hearing grossly Normal, Normocephalic, Normal Voice Respiratory: Yes: Chest Non-Tender, Lungs Clear, Normal Breath Sounds, No Respiratory Distress, No Accessory Muscle Use Neck: Yes: No masses,lesions,Nodules, Trachea in good position Breast: Yes: Breast Exam Deferred Cardiology: Yes: Regular Rhythm, Regular Rate Abdominal: Yes: Normal Bowel Sounds, Non Tender, Flat, Soft Genitourinary: Yes: Other (NO COMPLAINTS REPORTED) Back: Yes: Normal Inspection Musculoskeletal: Yes: full range of Motion, Gait Steady, Pelvis Stable Extremities: Yes: Normal Capillary Refill, Normal Inspection, Normal Range of Motion, Non-Tender Neurological: Yes: Alert, Normal Mood/Affect, Normal Response Integumentary: Yes: Normal Color, Dry, Warm Lymphatic: Yes: Within Normal Limits - Diagnostic (1) Alcohol dependence with uncomplicated withdrawal Current Visit: Yes Status: Chronic (2) Cocaine dependence, uncomplicated Current Visit: Yes Status: Chronic (3) Nicotine dependence Current Visit: Yes Status: Chronic Qualifiers: Nicotine product type: cigarettes Substance use status: uncomplicated Qualified Code(s): F17.210 - Nicotine dependence, cigarettes, uncomplicated; F17.210 - Nicotine dependence, cigarettes, uncomplicated (4) Opioid dependence on agonist therapy Current Visit: Yes Status: Chronic (5) Underweight Current Visit: Yes Status: Acute (6) History of seizure Current Visit: Yes Status: Acute Comment: DOES NOT RECALL MOST RECENT SEIZURES Cleared for Admission [facility] - Detox or Rehab [facility] Level of Care: Medically Managed Detox Regimen/Protocol: Librium [facility] Breath Alcohol Content Breath Alcohol Content: 0 Urine Pregancy Test - Result Urine Test Results: Negative- NO Line Present Urine Drug Screen - Results Drug Screen Negative: No Urine Drug Screen Results: ARMIN-Cocaine, OPI-Opiates, MTD-Methadone
[2017-05-25] MEDS ORDERED: P-EPHED 60MG/TRIPROLIDI 2.5MG TABLET PO PRN (14:48)
[2017-05-25] MEDS ORDERED: diphenhydrAMINE HCL 50 MG CAPSULE PO PRN (14:48)
[2017-05-25] MEDS ORDERED: NICOTINE POLACRILEX 2 MG GUM BC PRN (14:48)
[2017-05-25] MEDS ORDERED: MAGNESIUM HYDROX 2400MG/30ML ORAL SUSPENSION 30 ML CUP PO PRN (14:48)
[2017-05-25] MEDS ORDERED: MENTHOL/PHENOL 1 EACH UD MM PRN (14:48)
[2017-05-25] MEDS ORDERED: chlordiazePOXIDE HCL 25 MG CAPSULE PO PRN (14:48)
[2017-05-25] MEDS ORDERED: ACETAMINOPHEN 325 MG TABLET (FP) PO PRN (14:48)
[2017-05-25] MEDS ORDERED: guaiFENesin/D-METHORPHAN HB 10 ML UNIT-DOSE CUPS PO PRN (14:48)
[2017-05-25] MEDS ORDERED: MAG HYDROX/AL HYDROX/SIMETH 30 ML UNIT-DOSE CUP PO PRN (14:48)
[2017-05-25] MEDS ORDERED: LOPERAMIDE HCL 2 MG CAPSULE PO PRN (14:48)
[2017-05-25] MEDS ORDERED: MAGNESIUM CITRATE 300 ML BOTTLE PO PRN (14:48)
[2017-05-25] MEDS ORDERED: chlordiazePOXIDE HCL 25 MG CAPSULE PO ONE (15:45)
[2017-05-25] MEDS: NICOTINE 21 MG/24 HOURS TOPICAL PATCH TD SCH (16:19)
[2017-05-25 17:41] LABS: URINE APPEARANCE SLCLOUDY; URINE BILIRUBIN NEGATIVE (NEGATIVE); URINE BLOOD NEGATIVE (NEGATIVE); URINE COLOR YELLOW; URINE GLUCOSE (UA) NEGATIVE (NEGATIVE); URINE KETONE NEGATIVE (NEGATIVE); URINE NITRITE NEGATIVE (NEGATIVE); URINE UROBILINOGEN NEGATIVE mg/dL (0.2-1.0)
[2017-05-25 17:48] LABS: URINE PROTEIN 1+ (NEGATIVE)
[2017-05-25 17:50] LABS: URINE MUCUS RARE; URINE RBC 1 /hpf (0-3); URINE WBC 3 /hpf (3-5)
[2017-05-25] MEDS: chlordiazePOXIDE HCL 25 MG CAPSULE PO SCH ×2 (18:07→22:50)
[2017-05-25 19:35] LABS: URINE LEUK ESTERASE Negative (NEGATIVE)
[2017-05-25] MEDS: THIAMINE HCL 100 MG TABLET (FP) PO SCH (22:51)
[2017-05-26] MEDS: IBUPROFEN 400 MG TABLET (FP) PO PRN (04:09)
[2017-05-26] MEDS: chlordiazePOXIDE HCL 25 MG CAPSULE PO SCH ×4 (05:27→22:57)
[2017-05-26] MEDS: hydrOXYzine PAMOATE 50 MG CAPSULE (FP) PO PRN (06:07)
[2017-05-26] MEDS ORDERED: METHADONE HCL 10 MG TABLET PO ONE (06:40)
--- NOTE | 2017-05-26 07:35 | CONSULT ---
[facility] Psychiatric Consult - Data Date of interview: 05/26/17 Admission source: [facility] Identifying data: This is 47 years old female with history of Schizpophrenia, history of psychiatric hospitalizations, intoxicated with: Cocaine, Alcohol, Nicotine, Hisoty of Opioid dependenncy as well Substance Abuse History: Smoking history: Current every day smoker. Have you smoked in the past 12 months: Yes. Aproximately how many cigarettes per day: 20. Cigars Per Day: 0. Hx Chewing Tobacco Use: No. Initiated information on smoking cessation: Yes. 'Breaking Loose' booklet given: 05/25/17. - Substance & Tx. History. Hx Alcohol Use: Yes. Hx Substance Use: Yes. Substance Use Type : Alcohol, Cocaine, Heroin. Hx Substance Use Treatment: Yes (DETOX: 02/2017 REHAB: 2015). - Substances Abused. Alcohol. Route: Oral. Frequency: Daily. Amount used: liquor- 2 pints. Age of first use: 14. Date of Last Use: 05/24/17. Cocaine. Route: Smoking. Frequency: Daily. Amount used: 4 bags. Age of first use: 42. Date of Last Use: 05/25/17 Medical History: Weight loss ,Seizure history Psychiatric History: Patient reports history of Bipolar disorder, with nopsychiatric hospitalization historyu, reports taking prior to admission: Seroquel 200mg po qhs. Gabapentin 300mg po tid Physical/Sexual Abuse/Trauma History: Denies, unclear Additional Comment: Seroquel 200mg po qhs. Gabapentin 300mg po tid Mental Status Exam - Mental Status Exam Alert and Oriented to: Person Patient Appearance: Unkempt Mood: Withdrawn, Anxious Affect: Constricted Patient Behavior: Guarded Speech Pattern: Delayed Voice Loudness: Moderately Loud Thought Process: Circumstantial Thought Disorder: Being Controlled Hallucinations: Denies Suicidal Ideation: Denies Homicidal Ideation: Denies Insight/Judgement: Fair Sleep: Difficulty falling asleep Appetite: Weight loss Muscle strength/Tone: Mild Hypertonicity Gait/Station: Shuffling Additional Comments: Seroquel 200mg po qhs. Gabapentin 300mg po tid. Haldol 1mg po prn q4 for agitation Psychiatric Findings - Problem List ([place] 1, 2,3) (1) Alcohol dependence with uncomplicated withdrawal Current Visit: Yes Status: Chronic (2) Cocaine dependence, uncomplicated Current Visit: Yes Status: Chronic (3) Nicotine dependence Current Visit: Yes Status: Chronic Qualifiers: Nicotine product type: cigarettes Substance use status: uncomplicated Qualified Code(s): F17.210 - Nicotine dependence, cigarettes, uncomplicated; F17.210 - Nicotine dependence, cigarettes, uncomplicated (4) Opioid dependence on agonist therapy Current Visit: Yes Status: Chronic (5) Opioid dependence with withdrawal Current Visit: No Status: Acute (6) Substance induced mood disorder Current Visit: No Status: Acute (7) Non compliance w medication regimen Current Visit: No Status: Chronic (8) Schizophrenia Current Visit: Yes Status: Acute (9) Bipolar disorder Current Visit: Yes Status: Acute - Initial Treatment Plan Initial Treatment Plan: Seroquel 200mg po qhs. Gabapentin 300mg po tid
[2017-05-26] MEDS ORDERED: HALOPERIDOL 1 MG TABLET (FP) PO PRN (09:30)
[2017-05-26 09:51] LABS: MCH 30.2 pg (25.7-33.7); MCHC 32.8 g/dl (32.0-36.0); MEAN CELL VOLUME 92.1 fl (80-96); MEAN PLT VOLUME 7.7 fl (7.5-11.1); PLATELET COUNT 376 K/MM3 (134-434); RDW 13.8 % (11.6-15.6); WHITE BLOOD COUNT 6.2 K/mm3 (4.0-10.0)
[2017-05-26 10:14] LABS: ALBUMIN 3.8 g/dl (3.4-5.0); ALK PHOS 75 U/L (45-117); ANION GAP 6 (8-16); BILIRUBIN,TOTAL 0.5 mg/dL (0.2-1.0); CO2 28 mmol/L (21-32); CREATININE 0.8 mg/dL (0.55-1.02); GLUCOSE,RANDOM 80 mg/dL (74-106); SGOT/AST 21 U/L (15-37); SGPT/ALT 23 U/L (12-78); TOT PROT 8.1 g/dl (6.4-8.2)
--- NOTE | 2017-05-26 10:17 | EKG ---
Test Reason : Blood Pressure : / mmHG Vent. Rate : 072 BPM Atrial Rate : 072 BPM P-R Int : 132 ms QRS Dur : 082 ms QT Int : 430 ms P-R-T Axes : 059 013 008 degrees QTc Int : 470 ms NORMAL SINUS RHYTHM NORMAL ECG WHEN COMPARED WITH ECG OF 21-FEB-2017 20:00, T WAVE VARIATION Confirmed by DIPIKA RICKETTS MD ([id number]) on 05/26/2017 10:17:34 AM Referred By: Confirmed By:DIPIKA RICKETTS MD
[2017-05-26] MEDS: PRENATAL VITAMINS W/ FOLIC ACID TABLET (FP) PO SCH (10:25)
[2017-05-26] MEDS: NICOTINE 21 MG/24 HOURS TOPICAL PATCH TD SCH (10:27)
[2017-05-26 11:17] LABS: HIV 1 & 2 AB NEGATIVE; HIV 1 AGp24 NEGATIVE
--- NOTE | 2017-05-26 11:57 | PN ---
S CIWA - CIWA Score Nausea/Vomitin-No Nausea/No Vomiting Muscle Tremors: 4-Moderate,w/Arms Extend Anxiety: 3 Agitation: 4-Moderately Restless Paroxysmal Sweats: 3 Orientation: 0-Oriented Tacttile Disturbances: 0-None Auditory Disturbances: 0-None Visual Disturbances: 0-None Headache: 0-None Present CIWA-Ar Total Score: 14 BHS Progress Note (SOAP) Subjective: sweats shakes interrupted sleep agitation irritable restless Objective: 05/26/17 11:56 Vital Signs Temperature 96.6 F L 05/26/17 10: Pulse Rate 82 05/26/17 10:17 Respiratory Rate 16 05/26/17 10:17 Blood Pressure 118/78 05/26/17 10:17 O2 Sat by Pulse Oximetry (%) Laboratory Tests 05/25/17 05/26/17 05/26/17 11:10 07:00 07:00 WBC 6.2 D RBC 4.19 D Hgb 12.7 D Hct 38.6 D MCV 92.1 MCH 30.2 MCHC 32.8 RDW 13.8 Plt Count 376 MPV 7.7 Sodium 142 Potassium 3.8 Chloride 108 H Carbon Dioxide 28 Anion Gap 6 L BUN 8 Creatinine 0.8 D Creat Clearance w eGFR > 60 Random Glucose 80 Calcium 9.0 Total Bilirubin 0.5 AST 21 ALT 23 D Alkaline Phosphatase 75 D Total Protein 8.1 D Albumin 3.8 D Urine Color Yellow Urine Appearance Slcloudy Urine pH 7.0 D Ur Specific [place] 1.020 Urine Protein 1+ H Urine Glucose (UA) Negative Urine Ketones Negative Urine Blood Negative Urine Nitrite Negative Urine Bilirubin Negative Urine Urobilinogen Negative Ur Leukocyte Esterase Negative Urine RBC 1 Urine WBC 3 Ur Epithelial Cells Rare Urine Mucus Rare RPR Titer HIV 1&2 Antibody Screen HIV P24 Antigen 05/26/17 05/26/17 07:00 07:00 WBC RBC Hgb Hct MCV MCH MCHC RDW Plt Count MPV Sodium Potassium Chloride Carbon Dioxide Anion Gap BUN Creatinine Creat Clearance w eGFR Random Glucose Calcium Total Bilirubin AST ALT Alkaline Phosphatase Total Protein Albumin Urine Color Urine Appearance Urine pH Ur Specific [place] Urine Protein Urine Glucose (UA) Urine Ketones Urine Blood Urine Nitrite Urine Bilirubin Urine Urobilinogen Ur Leukocyte Esterase Urine RBC Urine WBC Ur Epithelial Cells Urine Mucus RPR Titer Nonreactive HIV 1&2 Antibody Screen Negative HIV P24 Antigen Negative aaox3 ambulating no acute distress Assessment: 05/26/17 11:56 withdrawal sx Plan: continue detox increase fluids
[2017-05-26] MEDS: GABAPENTIN 300 MG CAPSULE (FP) PO SCH ×2 (13:17→22:57)
[2017-05-26] MEDS: QUEtiapine FUMARATE 200 MG TABLET PO SCH (22:57)
[2017-05-26] MEDS: THIAMINE HCL 100 MG TABLET (FP) PO SCH (22:57)
--- NOTE | 2017-05-27 01:19 | PN ---
PHILIP Progress Note Note: patient has nausea and vomiting,tigan 200 mgs im q 8 hrs for nausea and vomiting
[2017-05-27] MEDS: TRIMETHOBENZAMIDE HCL 200MG/2ML INJ IM PRN ×2 (01:46→15:10)
[2017-05-27] MEDS: IBUPROFEN 400 MG TABLET (FP) PO PRN (03:14)
[2017-05-27] MEDS: hydrOXYzine PAMOATE 50 MG CAPSULE (FP) PO PRN (03:14)
[2017-05-27] MEDS ORDERED: METHADONE HCL 40 MG DISPERSABLE TABLET PO ONE (06:00)
[2017-05-27] MEDS ORDERED: METHADONE HCL 10 MG/1 ML (20ML VIAL) IM ONE (08:43)
[2017-05-27] MEDS: chlordiazePOXIDE HCL 25 MG CAPSULE PO SCH ×2 (08:54→13:08)
[2017-05-27] MEDS: GABAPENTIN 300 MG CAPSULE (FP) PO SCH ×3 (08:54→23:20)
--- NOTE | 2017-05-27 10:39 | PN ---
S CIWA - CIWA Score Nausea/Vomitin Muscle Tremors: 4-Moderate,w/Arms Extend Anxiety: 3 Agitation: 4-Moderately Restless Paroxysmal Sweats: 3 Orientation: 0-Oriented Tacttile Disturbances: 0-None Auditory Disturbances: 0-None Visual Disturbances: 0-None Headache: 0-None Present CIWA-Ar Total Score: 16 BHS Progress Note (SOAP) Subjective: nausea sweats interrupted sleep agitation anxiety restless body ache Objective: 05/27/17 10:37 Vital Signs Temperature 98.4 F 05/27/17 06:41 Pulse Rate 80 05/27/17 06:41 Respiratory Rate 18 05/27/17 06:41 Blood Pressure 134/90 05/27/17 06:41 O2 Sat by Pulse Oximetry (%) Laboratory Tests 05/25/17 05/26/17 05/26/17 11:10 07:00 07:00 WBC 6.2 D RBC 4.19 D Hgb 12.7 D Hct 38.6 D MCV 92.1 MCH 30.2 MCHC 32.8 RDW 13.8 Plt Count 376 MPV 7.7 Sodium 142 Potassium 3.8 Chloride 108 H Carbon Dioxide 28 Anion Gap 6 L BUN 8 Creatinine 0.8 D Creat Clearance w eGFR > 60 Random Glucose 80 Calcium 9.0 Total Bilirubin 0.5 AST 21 ALT 23 D Alkaline Phosphatase 75 D Total Protein 8.1 D Albumin 3.8 D Urine Color Yellow Urine Appearance Slcloudy Urine pH 7.0 D Ur Specific [place] 1.020 Urine Protein 1+ H Urine Glucose (UA) Negative Urine Ketones Negative Urine Blood Negative Urine Nitrite Negative Urine Bilirubin Negative Urine Urobilinogen Negative Ur Leukocyte Esterase Negative Urine RBC 1 Urine WBC 3 Ur Epithelial Cells Rare Urine Mucus Rare RPR Titer Hepatitis C Antibody HIV 1&2 Antibody Screen HIV P24 Antigen 05/26/17 05/26/17 05/26/17 07:00 07:00 07:00 WBC RBC Hgb Hct MCV MCH MCHC RDW Plt Count MPV Sodium Potassium Chloride Carbon Dioxide Anion Gap BUN Creatinine Creat Clearance w eGFR Random Glucose Calcium Total Bilirubin AST ALT Alkaline Phosphatase Total Protein Albumin Urine Color Urine Appearance Urine pH Ur Specific [place] Urine Protein Urine Glucose (UA) Urine Ketones Urine Blood Urine Nitrite Urine Bilirubin Urine Urobilinogen Ur Leukocyte Esterase Urine RBC Urine WBC Ur Epithelial Cells Urine Mucus RPR Titer Nonreactive Hepatitis C Antibody 0.2 HIV 1&2 Antibody Screen Negative HIV P24 Antigen Negative aaox3 ambulating no acute distress Assessment: 05/27/17 10:37 withdrawal sx Plan: continue detox increase fluids methadone IM x one tigan IM prn
[2017-05-27] MEDS ORDERED: METOCLOPRAMIDE HCL 10 MG TABLET (FP) PO SCH (11:00)
[2017-05-27] MEDS: NICOTINE 21 MG/24 HOURS TOPICAL PATCH TD SCH (13:08)
[2017-05-27] MEDS: PRENATAL VITAMINS W/ FOLIC ACID TABLET (FP) PO SCH (13:08)
[2017-05-27] MEDS: chlordiazePOXIDE 5 MG CAPSULE PO SCH ×2 (19:01→23:19)
[2017-05-27] MEDS ORDERED: RANITIDINE HCL 150 MG TABLET (FP) PO ONE (21:38)
--- NOTE | 2017-05-27 22:34 | PN ---
[facility] Progress Note Note: 47 years old female vomiting x 2 days, greenish materials, observed patient lying on bed, poor skin turgur, dry mucos membrane, bp 153/89 ap 93, temp 99, ambulance was called, information provided to the er, may return for detox or rehab when medically cleared.
[2017-05-27] MEDS: THIAMINE HCL 100 MG TABLET (FP) PO SCH (23:20)
[2017-05-27] MEDS: QUEtiapine FUMARATE 200 MG TABLET PO SCH (23:20)
[2017-05-28] MEDS ORDERED: METHADONE 40 MG, METHADONE 10 MG PO ONE ×2 (06:00→09:40)
[2017-05-28] MEDS: chlordiazePOXIDE 5 MG CAPSULE PO SCH ×2 (06:00→12:01)
[2017-05-28] MEDS ORDERED: METHADONE HCL 10 MG TABLET PO SCH (06:00)
[2017-05-28] MEDS: GABAPENTIN 300 MG CAPSULE (FP) PO SCH ×3 (06:00→23:01)
[2017-05-28] MEDS ORDERED: METHADONE HCL 10 MG TABLET PO ONE ×2 (06:00→09:29)
[2017-05-28] MEDS ORDERED: METHADONE HCL 40 MG DISPERSABLE TABLET ONE (09:50)
[2017-05-28] MEDS ORDERED: METHADONE HCL 10 MG TABLET ONE (09:51)
--- NOTE | 2017-05-28 10:34 | PN ---
[facility] Progress Note (SOAP) Subjective: i feel so much better no more nausea/vomiting little sweats Objective: 05/28/17 10:31 Vital Signs Temperature 99.5 F 05/27/17 22:48 Pulse Rate 87 05/27/17 22:48 Respiratory Rate 18 05/27/17 22:48 Blood Pressure 143/98 05/27/17 22:48 O2 Sat by Pulse Oximetry (%) Laboratory Tests 05/25/17 05/26/17 05/26/17 11:10 07:00 07:00 WBC 6.2 D RBC 4.19 D Hgb 12.7 D Hct 38.6 D MCV 92.1 MCH 30.2 MCHC 32.8 RDW 13.8 Plt Count 376 MPV 7.7 Sodium 142 Potassium 3.8 Chloride 108 H Carbon Dioxide 28 Anion Gap 6 L BUN 8 Creatinine 0.8 D Creat Clearance w eGFR > 60 Random Glucose 80 Calcium 9.0 Total Bilirubin 0.5 AST 21 ALT 23 D Alkaline Phosphatase 75 D Total Protein 8.1 D Albumin 3.8 D Urine Color Yellow Urine Appearance Slcloudy Urine pH 7.0 D Ur Specific [place] 1.020 Urine Protein 1+ H Urine Glucose (UA) Negative Urine Ketones Negative Urine Blood Negative Urine Nitrite Negative Urine Bilirubin Negative Urine Urobilinogen Negative Ur Leukocyte Esterase Negative Urine RBC 1 Urine WBC 3 Ur Epithelial Cells Rare Urine Mucus Rare RPR Titer Hepatitis C Antibody HIV 1&2 Antibody Screen HIV P24 Antigen 05/26/17 05/26/17 05/26/17 07:00 07:00 07:00 WBC RBC Hgb Hct MCV MCH MCHC RDW Plt Count MPV Sodium Potassium Chloride Carbon Dioxide Anion Gap BUN Creatinine Creat Clearance w eGFR Random Glucose Calcium Total Bilirubin AST ALT Alkaline Phosphatase Total Protein Albumin Urine Color Urine Appearance Urine pH Ur Specific [place] Urine Protein Urine Glucose (UA) Urine Ketones Urine Blood Urine Nitrite Urine Bilirubin Urine Urobilinogen Ur Leukocyte Esterase Urine RBC Urine WBC Ur Epithelial Cells Urine Mucus RPR Titer Nonreactive Hepatitis C Antibody 0.2 HIV 1&2 Antibody Screen Negative HIV P24 Antigen Negative aaox3 ambulating no acute distress Assessment: 05/28/17 10:32 withdrawals sx Plan: continue detox increase fluids d/c in am
[2017-05-28] MEDS: PRENATAL VITAMINS W/ FOLIC ACID TABLET (FP) PO SCH (12:09)
[2017-05-28] MEDS: NICOTINE 21 MG/24 HOURS TOPICAL PATCH TD SCH (12:09)
[2017-05-28] MEDS: RANITIDINE HCL 150 MG TABLET (FP) PO SCH ×2 (12:10→22:35)
[2017-05-28] MEDS: chlordiazePOXIDE HCL 10 MG CAPSULE PO SCH ×2 (17:41→22:35)
[2017-05-28] MEDS: QUEtiapine FUMARATE 200 MG TABLET PO SCH (22:35)
[2017-05-28] MEDS: THIAMINE HCL 100 MG TABLET (FP) PO SCH (22:35)
[2017-05-29] MEDS ORDERED: METHADONE HCL 40 MG DISPERSABLE TABLET ONE (05:13)
[2017-05-29] MEDS ORDERED: METHADONE HCL 10 MG TABLET ONE (05:13)
[2017-05-29] MEDS ORDERED: METHADONE 40 MG, METHADONE 20 MG PO ONE (06:00)
[2017-05-29] MEDS ORDERED: METHADONE HCL 10 MG TABLET PO ONE (06:00)
[2017-05-29] MEDS: chlordiazePOXIDE HCL 10 MG CAPSULE PO SCH ×2 (06:36→11:54)
[2017-05-29] MEDS: GABAPENTIN 300 MG CAPSULE (FP) PO SCH ×2 (06:36→14:40)
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
--- NOTE | 2017-05-29 09:32 | DS ---
[facility] Detox Discharge Summary Admission Date: 05/25/17 Discharge Date: 05/29/17 - History Present History: Alcohol Dependence, Cocaine Dependence - Physical Exam Results Vital Signs: Vital Signs Temperature 97.5 F L 05/29/17 06:51 Pulse Rate 76 05/29/17 06:51 Respiratory Rate 18 05/29/17 06:51 Blood Pressure 95/62 05/29/17 06:51 O2 Sat by Pulse Oximetry (%) - Treatment Hospital Course: Detox Protocol Followed, Detoxed Safely, Responded well, Discharged Condition Good, Rehab Referral Accepted - Medication Discharge Medications: Ambulatory Orders Quetiapine Fumarate [Seroquel -] 200 mg PO HS 09/20/16 Gabapentin [Neurontin -] 100 mg PO TID #90 capsule 09/25/16 Quetiapine Fumarate [Seroquel -] 200 mg PO HS #30 tab 05/26/17 - Diagnosis (1) Bipolar disorder Current Visit: Yes Status: Chronic (2) Schizophrenia Current Visit: Yes Status: Acute (3) Underweight Current Visit: Yes Status: Acute (4) Alcohol dependence with uncomplicated withdrawal Current Visit: Yes Status: Chronic (5) Cocaine dependence, uncomplicated Current Visit: Yes Status: Chronic (6) Nicotine dependence Current Visit: Yes Status: Chronic Qualifiers: Nicotine product type: cigarettes Substance use status: uncomplicated Qualified Code(s): F17.210 - Nicotine dependence, cigarettes, uncomplicated; F17.210 - Nicotine dependence, cigarettes, uncomplicated (7) Opioid dependence on agonist therapy Current Visit: Yes Status: Chronic (8) History of seizure Current Visit: Yes Status: Inactive (9) Nausea & vomiting Current Visit: No Status: Acute (10) Opioid dependence with withdrawal Current Visit: Yes Status: Chronic (11) Substance induced mood disorder Current Visit: No Status: Acute (12) Non compliance w medication regimen Current Visit: No Status: Chronic (13) Weight decrease Current Visit: No Status: Chronic - AMA Did Patient Leave Against Medical Advice: No (rehab at health system)
[2017-05-29] MEDS: RANITIDINE HCL 150 MG TABLET (FP) PO SCH (11:53)
[2017-05-29] MEDS: PRENATAL VITAMINS W/ FOLIC ACID TABLET (FP) PO SCH (11:53)
[2017-05-29] MEDS: NICOTINE 21 MG/24 HOURS TOPICAL PATCH TD SCH (11:53)
[2017-05-29 14:36] VITALS: BP 100/69; PULSE 82; TEMP 96.8
[2017-05-30] MEDS ORDERED: METHADONE 40 MG, METHADONE 30 MG PO ONE (06:00)
[2017-05-30] MEDS ORDERED: METHADONE HCL 10 MG TABLET PO ONE (06:00)
[2017-05-31] MEDS ORDERED: METHADONE HCL 10 MG TABLET PO SCH (06:00)
[2017-05-31] MEDS ORDERED: METHADONE HCL 40 MG DISPERSABLE TABLET PO SCH (06:00)
== END 2017-05-29 15:46 | disposition other institution (70) | DRG 773 ==
LOC: YASAS 12:35 → Y6N 13:45
PROVIDERS: ADMIT Internal Medicine; ATTEND Internal Medicine
PROC: HZ2ZZZZ Detoxification Services for Substance Abuse Treatment (ICD-10-PCS; principal; 2017-05-25)
DX: F10.230 Alcohol dependence with withdrawal, uncomplicated (principal); F11.20 Opioid dependence, uncomplicated; F14.20 Cocaine dependence, uncomplicated; F12.20 Cannabis dependence, uncomplicated; F17.210 Nicotine dependence, cigarettes, uncomplicated; F31.9 Bipolar disorder, unspecified; F20.9 Schizophrenia, unspecified; F19.24 Other psychoactive substance dependence with psychoactive substance-induced mood disorder; D64.9 Anemia, unspecified; Z91.013 Allergy to seafood; R63.6 Underweight; Z68.1 Body mass index [BMI] 19.9 or less, adult; Z86.69 Personal history of other diseases of the nervous system and sense organs; R11.2 Nausea with vomiting, unspecified; Z91.14 Patient's other noncompliance with medication regimen; Z87.898 Personal history of other specified conditions; M79.641 Pain in right hand; Z91.5 Personal history of self-harm
CPT/HCPCS: 36415; 80053; 81003; 81015; 85027; 86593; 86803; 87389; 93005; 93010

== ENCOUNTER 2017-05-27 22:39 | Emergency (ER) | payer OTHER ==
[2017-05-27 23:01] VITALS: PULSE 78; BMI 19.7
--- NOTE | 2017-05-27 23:02 | PDOC ---
History of Present Illness - General History Source: Patient Exam Limitations: No Limitations - History of Present Illness Initial Comments: 05/27/17 23:12 The patient is a 47 year old female resident from [facility], with a significant past medical history of cocaine abuse, alcohol abuse, heroin abuse who presents to the emergency department vomiting upon arrival. Patient states she has been vomiting the entire day. Patient denied any use drugs in [facility]. <Michell Washington - Last Filed: 05/27/17 23:56> - General History Source: Patient <JuanAnthony amaro - Last Filed: 05/28/17 19:31> - General Chief Complaint: Nausea/Vomiting Stated Complaint: VOMITING Time Seen by Provider: 05/27/17 23:00 Past History <Michell Washington - Last Filed: 05/27/17 23:56> - Past Medical History Anemia: Yes (NO MEDS) Asthma: No Cancer: No Cardiac Disorders: No CVA: No COPD: No CHF: No Dementia: No Diabetes: No GI Disorders: No Disorders: No HTN: No Hypercholesterolemia: No Kidney Stones: No Liver Disease: No Seizures: Yes (CAN'T RECALL WHEN WAS LAST SZ ) Thyroid Disease: No - Surgical History Abdominal Surgery: No Appendectomy: No Cardiac Surgery: No Cholecystectomy: No Lung Surgery: No Neurologic Surgery: No Orthopedic Surgery: No - Reproductive History PID: No - Suicide/Smoking/Psychosocial Hx Smoking History: Current every day smoker Have you smoked in the past 12 months: Yes Number of Cigarettes Smoked Daily: 20 Cigars Per Day: 0 Information on smoking cessation initiated: No 'Breaking Loose' booklet given: 05/25/17 Hx Alcohol Use: Yes Drug/Substance Use Hx: Yes (heroin, cocaine) Substance Use Type: Alcohol, Cocaine, Heroin Hx Substance Use Treatment: Yes (DETOX: 02/2017 REHAB: 2015) <Anthony Baig - Last Filed: 05/28/17 19:31> - Past Medical History Allergies/Adverse Reactions: Allergies Allergy/AdvReac Type Severity Reaction Status Date / Time shellfish derived Allergy Severe Swelling Verified 05/25/17 14:46 No Known Drug Allergies Allergy Verified 05/25/17 14:46 Home Medications: Ambulatory Orders Quetiapine Fumarate [Seroquel -] 200 mg PO HS 09/20/16 Gabapentin [Neurontin -] 100 mg PO TID #90 capsule 09/25/16 Quetiapine Fumarate [Seroquel -] 200 mg PO HS #30 tab 05/26/17 Review of Systems - Review of Systems Able to Perform ROS?: Yes Comments:: 05/27/17 23:13 CONSTITUTIONAL: Absent: fever, no chills, no fatigue EYES: Absent: visual changes ENT: Absent: ear pain, no sore throat CARDIOVASCULAR: Absent: chest pain, no palpitations RESPIRATORY: Absent: cough, no SOB GI: +nausea, vomiting. Absent: abdominal pain, no no constipation, no diarrhea GENITOURINARY: Absent: dysuria, no frequency, no hematuria MUSCULOSKELETAL: Absent: back pain, no arthralgia, no myalgia SKIN: Absent: rash <Michell Washington - Last Filed: 05/27/17 23:56> *Physical Exam - Vital Signs Last Vital Signs Temp Pulse Resp BP Pulse Ox 98.5 F 78 20 153/114 100 05/27/17 22:51 05/27/17 22:51 05/27/17 22:51 05/27/17 22:51 05/27/17 22:51 - Physical Exam Comments: 05/27/17 23:14 GENERAL: Well-appearing, well-nourished. +moderate distress. HEENT: Normocephalic, atraumatic. PERRL, EOM intact. CARDIOVASCULAR: Normal S1, S2. +Tachycardic. Regularrhythm. PULMONARY: Clear to auscultation bilaterally. ABDOMEN: +Actively vomiting. +Mild diffuse tenderness. Soft, non-distended. EXTREMITIES: Normal ROM in all four extremities. No gross deformities. SKIN: Warm, dry. No rash NEUROLOGICAL: No focal neurological deficits. <Michell Washington - Last Filed: 05/27/17 23:56> - Vital Signs Last Vital Signs Temp Pulse Resp BP Pulse Ox 98.5 F 78 20 153/114 100 05/27/17 22:51 05/27/17 22:51 05/27/17 22:51 05/27/17 22:51 05/27/17 22:51 <Anthony Baig - Last Filed: 05/28/17 19:31> Heart Score/ECG Review #1 05/27/17 23:[address] Jovanni Urbano. rate 84 bpm NSR Possible L atrial enlargement Septal infarct Twave abnormality <Michell Washington - Last Filed: 05/27/17 23:56> ED Treatment Course - LABORATORY CBC & Chemistry Diagram: 05/27/17 23:30 05/27/17 23:30 <Anthony Baig - Last Filed: 05/28/17 19:31> Medical Decision Making - Medical Decision Making 05/28/17 19:31 Dr. Baig: The scribe's documentation has been prepared under my direction and personally reviewed by me in its entirery. I confirm that the note above accurately reflects all work, treatment, procedures, and medical decision making performed by me. <Anthony Baig - Last Filed: 05/28/17 19:31> *DC/Admit/Observation/Transfer - Attestations Scribe Attestion: 05/27/17 23:14 Documentation prepared by Michell Washington, acting as medical customer service representative for Anthony Baig DO. <Michell Washington - Last Filed: 05/27/17 23:56> - Discharge Dispostion Admit: No <Anthony Baig - Last Filed: 05/28/17 19:31> Diagnosis at time of Disposition: Nausea & vomiting - Patient Instructions Printed Discharge Instructions: DI for Vomiting -- Adult, DI for Nausea -- Adult
[2017-05-27] MEDS ORDERED: SODIUM CHLORIDE 1,000 ML IV STA (23:03)
[2017-05-27] MEDS ORDERED: PANTOPRAZOLE SODIUM 40 MG in SODIUM CHLORIDE 100 ML IVPB ONE (23:06)
[2017-05-27] MEDS ORDERED: PANTOPRAZOLE SODIUM 100 ML IVPB ONE (23:51)
[2017-05-27] MEDS ORDERED: LORazepam 2 MG/ML SDV VIAL ONE (23:51)
[2017-05-28 00:25] LABS: BASOPHIL 0.8 % (0-2.0); EOSINOPHIL 0.1 % (0-4.5); MCH 30.1 pg (25.7-33.7); MCHC 33.1 g/dl (32.0-36.0); MEAN PLT VOLUME 7.4 fl (7.5-11.1); NEUTROPHILS 79.8 % (42.8-82.8); PLATELET COUNT 451 K/MM3 (134-434); RDW 14.1 % (11.6-15.6)
[2017-05-28 00:38] LABS: INR 1.03 (0.82-1.09); PROTHROMBIN TIME (PATIENT) 11.6 SEC (9.98-11.88)
[2017-05-28 00:52] LABS: ALBUMIN 4.1 g/dl (3.4-5.0); ANION GAP 13 (8-16); BILIRUBIN,TOTAL 0.5 mg/dL (0.2-1.0); CALCIUM 9.4 mg/dL (8.5-10.1); CO2 27 mmol/L (21-32); CREATININE 0.9 mg/dL (0.55-1.02); GLUCOSE,RANDOM 106 mg/dL (74-106); MAGNESIUM 2.7 mg/dL (1.8-2.4); SGOT/AST 24 U/L (15-37); SGPT/ALT 25 U/L (12-78)
[2017-05-28 00:54] LABS: ACETONE SERUM NEGATIVE (NEGATIVE)
[2017-05-28 00:55] LABS: ALK PHOS 73 U/L (45-117); CPK 129 IU/L (26-192); TROPONIN I < 0.02 ng/ml (0.00-0.05)
[2017-05-28 04:31] LABS: URINE APPEARANCE SLCLOUDY; URINE BILIRUBIN NEGATIVE (NEGATIVE); URINE BLOOD NEGATIVE (NEGATIVE); URINE COLOR YELLOW; URINE GLUCOSE (UA) NEGATIVE (NEGATIVE); URINE KETONE 1+ (NEGATIVE); URINE NITRITE NEGATIVE (NEGATIVE); URINE UROBILINOGEN NEGATIVE mg/dL (0.2-1.0)
[2017-05-28 04:34] LABS: URINE PROTEIN 1+ (NEGATIVE)
[2017-05-28 04:39] LABS: URINE MUCUS FEW; URINE RBC 2 /hpf (0-3); URINE WBC 9 /hpf (3-5)
[2017-05-28 06:50] VITALS: BP 144/96; TEMP 98.6
[2017-05-28 09:01] LABS: URINE LEUK ESTERASE Negative (NEGATIVE)
--- NOTE | 2017-05-28 13:06 | EKG ---
Test Reason : Blood Pressure : / mmHG Vent. Rate : 084 BPM Atrial Rate : 084 BPM P-R Int : 128 ms QRS Dur : 082 ms QT Int : 332 ms P-R-T Axes : 074 027 -48 degrees QTc Int : 392 ms NORMAL SINUS RHYTHM POSSIBLE LEFT ATRIAL ENLARGEMENT SEPTAL INFARCT , AGE UNDETERMINED T WAVE ABNORMALITY, CONSIDER INFERIOR ISCHEMIA ABNORMAL ECG WHEN COMPARED WITH ECG OF 25-MAY-2017 14:17, SEPTAL INFARCT IS NOW PRESENT QT HAS SHORTENED Confirmed by ANETTE DENG, CAT ([id number]) on 05/28/2017 1:05:57 PM Referred By: Confirmed By:CAT CHEEMA MD
== END 2017-05-28 07:34 | disposition short-term general hospital (02) ==
LOC: JER 22:39
PROC: 3E033NZ Introduction of Analgesics, Hypnotics, Sedatives into Peripheral Vein, Percutaneous Approach (ICD-10-PCS; principal; 2017-05-27)
PROC: 3E033GC Introduction of Other Therapeutic Substance into Peripheral Vein, Percutaneous Approach (ICD-10-PCS; 2017-05-27)
PROC: 3E0337Z Introduction of Electrolytic and Water Balance Substance into Peripheral Vein, Percutaneous Approach (ICD-10-PCS; 2017-05-27)
DX: R11.2 Nausea with vomiting, unspecified (principal); F17.210 Nicotine dependence, cigarettes, uncomplicated; F19.10 Other psychoactive substance abuse, uncomplicated; F10.10 Alcohol abuse, uncomplicated
CPT/HCPCS: 36415; 74176-TC; 80053; 81003; 81015; 82009; 82550; 83690; 83735; 83880; 84484; 84703; 85025; 85610; 86900; 86901; 93005; 93010; 99282-25

== ENCOUNTER 2017-05-29 09:42 | Emergency (ER) | payer OTHER ==
[2017-05-29 09:47] VITALS: BP 90/60; PULSE 86; TEMP 98.6; BMI 18.0
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
== END 2017-05-29 12:32 | disposition home or self-care (01) ==
LOC: JERFT 09:42
PROC: 2W3DX1Z Immobilization of Left Lower Arm using Splint (ICD-10-PCS; principal; 2017-05-29)
DX: S62.327A Displaced fracture of shaft of fifth metacarpal bone, left hand, initial encounter for closed fracture (principal); Y04.2XXA Assault by strike against or bumped into by another person, initial encounter; Y93.89 Activity, other specified; Y92.038 Other place in apartment as the place of occurrence of the external cause; F20.9 Schizophrenia, unspecified; G40.909 Epilepsy, unspecified, not intractable, without status epilepticus
CPT/HCPCS: 73130-TC-LT; 99281-25

== ENCOUNTER 2017-09-21 12:14 | Inpatient (IN) | payer OTHER ==
[2017-09-21 13:36] VITALS: BMI 19.5
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
[2017-09-21] MEDS ORDERED: NICOTINE POLACRILEX 2 MG GUM BC PRN (16:12)
[2017-09-21] MEDS ORDERED: MAGNESIUM CITRATE 300 ML BOTTLE PO PRN (16:12)
[2017-09-21] MEDS ORDERED: LOPERAMIDE HCL 2 MG CAPSULE PO PRN (16:12)
[2017-09-21] MEDS ORDERED: chlordiazePOXIDE HCL 25 MG CAPSULE PO PRN (16:12)
[2017-09-21] MEDS ORDERED: MAGNESIUM HYDROX 2400MG/30ML ORAL SUSPENSION 30 ML CUP PO PRN (16:12)
[2017-09-21] MEDS ORDERED: guaiFENesin/D-METHORPHAN HB 10 ML UNIT-DOSE CUPS PO PRN (16:12)
[2017-09-21] MEDS ORDERED: IBUPROFEN 400 MG TABLET (FP) PO PRN (16:12)
[2017-09-21] MEDS ORDERED: MAG HYDROX/AL HYDROX/SIMETH 30 ML UNIT-DOSE CUP PO PRN (16:12)
[2017-09-21] MEDS ORDERED: ACETAMINOPHEN 325 MG TABLET (FP) PO PRN (16:12)
[2017-09-21] MEDS ORDERED: MENTHOL/PHENOL 1 EACH UD MM PRN (16:12)
[2017-09-21] MEDS ORDERED: P-EPHED 60MG/TRIPROLIDI 2.5MG TABLET PO PRN (16:12)
[2017-09-21] MEDS: chlordiazePOXIDE HCL 25 MG CAPSULE PO SCH ×2 (17:48→23:41)
[2017-09-21] MEDS: NICOTINE 21 MG/24 HOURS TOPICAL PATCH TD SCH (17:49)
[2017-09-21] MEDS: THIAMINE HCL 100 MG TABLET (FP) PO SCH (23:41)
[2017-09-22] MEDS ORDERED: METHADONE HCL 40 MG DISPERSABLE TABLET ONE (05:06)
[2017-09-22] MEDS ORDERED: METHADONE HCL 10 MG TABLET ONE (05:06)
[2017-09-22] MEDS: chlordiazePOXIDE HCL 25 MG CAPSULE PO SCH ×4 (05:57→22:44)
[2017-09-22] MEDS ORDERED: METHADONE 40 MG, METHADONE 30 MG PO ONE (06:00)
[2017-09-22] MEDS ORDERED: METHADONE HCL 10 MG TABLET PO ONE (06:00)
--- NOTE | 2017-09-22 09:46 | CONSULT ---
[facility] Psychiatric Consult - Data Date of interview: 09/22/17 Admission source: [facility] Identifying data: Pt. is a 47 year old female, mother of six, and currently unemployed. This is one of multiple admissions for patient. Pt. admitted to detox for alcohol, heroin and cocaine. Substance Abuse History: Following information confirmed with patient: Smoking Cessation. Smoking history: Current every day smoker. Have you smoked in the past 12 months: Yes. Aproximately how many cigarettes per day: 20. Cigars Per Day: 0. Hx Chewing Tobacco Use: No. Initiated information on smoking cessation : Yes. 'Breaking Loose' booklet given: 09/21/17. - Substance & Tx. History. Hx Alcohol Use: Yes. Substance Use Type: Alcohol, Cocaine, Heroin. - Substances Abused. Alcohol. Route: Oral. Frequency: Daily. Amount used: vodka(1 pint)/beer(1-2 16 oz cans). Age of first use: 13. Date of Last Use: . Cocaine. Route: Injection. Frequency: Daily. Amount used: $50. Age of first use: 15. Date of Last Use: 09/20/17. Heroin. Route: Injection. Frequency: Daily. Amount used: 1-2 bags. Age of first use: 14. Date of Last Use: 09/19/17 Medical History: Anemia, seizures Psychiatric History: Pt. presents as fatigue and slightly sedated. Pt. reports a history of multiple psychiatric hospitalizations (unable to name hospitals) and a diagnosis of Schizophrenia and bipolar. Reports Outpatient psychiatric care at [facility] and reports taking the medication regime of seroquel 200mg qhs and gabapentin 600mg TID. As per records, patient was recently admitted to on 05/30/[address] seen [address] Dr[address] Valladares. As per Dr. Valladares note, patient has a "dx of Schizophrenia since childhood .Reports more than 10 psychiatric hospitalizations.Most recent admission was in 2014 to one of the hospitals in [place]". Patient was prescribed Seroquel 200 mg po hs and Neurontin 100 mg po tid while in rehab. Pt. denies suicidal and homicial ideation. Pt denies h/o suicide attempt. Physical/Sexual Abuse/Trauma History: Denies. Mental Status Exam - Mental Status Exam Alert and Oriented to: Time, Place, Person Cognitive Function: Fair Patient Appearance: Unkempt Mood: Withdrawn Affect: Flat Patient Behavior: Sedated, Fatigued, Guarded Speech Pattern: Delayed Voice Loudness: Moderately Soft/Quiet Thought Process: Goal Oriented Thought Disorder: Not Present Hallucinations: Denies Suicidal Ideation: Denies Homicidal Ideation: Denies Insight/Judgement: Poor Sleep: Poorly Appetite: Fair Muscle strength/Tone: Normal Gait/Station: Other (Did not observe patient's gait.) Psychiatric Findings - Problem List ([place] 1, 2,3) (1) Alcohol dependence with uncomplicated withdrawal Current Visit: Yes Status: Acute (2) Bipolar disorder Current Visit: Yes Status: Chronic Comment: Historical diagnosis. (3) Nicotine dependence Current Visit: Yes Status: Chronic Qualifiers: Nicotine product type: cigarettes Substance use status: uncomplicated Qualified Code(s): F17.210 - Nicotine dependence, cigarettes, uncomplicated (4) Schizophrenia Current Visit: Yes Status: Chronic Comment: History. (5) Substance induced mood disorder Current Visit: Yes Status: Acute (6) Cocaine dependence Current Visit: Yes Status: Chronic - Initial Treatment Plan Initial Treatment Plan: Psychoeducation provided. Detoxification in progress. Seroquel 100mg qhs (reduce dosage to prevent overdsedation and risk for fall. Plan is to titrate to 200mg qhs if patient is able to tolerate 100mg qhs) + Gabapentin 100mg TID ordered. Benefits and side effects discussed. Verbal consent given. Will continue to monitor patient.
[2017-09-22 10:34] LABS: HEMATOCRIT 29.2 % (32.4-45.2); HEMOGLOBIN 9.4 GM/dL (10.7-15.3); MCH 30.1 pg (25.7-33.7); MCHC 32.4 g/dl (32.0-36.0); MEAN PLT VOLUME 7.8 fl (7.5-11.1); PLATELET COUNT 225 K/MM3 (134-434); RBC 3.14 M/mm3 (3.60-5.2); RDW 15.4 % (11.6-15.6)
[2017-09-22 10:48] LABS: ANION GAP 3 (8-16); BLOOD UREA NITROGEN 8 mg/dL (7-18); CALCIUM 7.6 mg/dL (8.5-10.1); CHLORIDE 109 mmol/L (98-107); CO2 32 mmol/L (21-32); GLUCOSE,RANDOM 81 mg/dL (74-106); POTASSIUM 3.8 mmol/L (3.5-5.1); SODIUM 144 mmol/L (136-145)
[2017-09-22 10:53] LABS: ALK PHOS 66 U/L (45-117); BILIRUBIN,TOTAL 0.4 mg/dL (0.2-1.0); CREATININE 0.6 mg/dL (0.55-1.02); SGOT/AST 25 U/L (15-37); SGPT/ALT 19 U/L (12-78); TOT PROT 6.4 g/dl (6.4-8.2)
[2017-09-22] MEDS: PRENATAL VITAMINS W/ FOLIC ACID TABLET (FP) PO SCH (11:13)
[2017-09-22] MEDS: NICOTINE 21 MG/24 HOURS TOPICAL PATCH TD SCH (11:14)
--- NOTE | 2017-09-22 12:05 | PN ---
S CIWA - CIWA Score Nausea/Vomitin-Mild Nausea/No Vomiting Muscle Tremors: 4-Moderate,w/Arms Extend Anxiety: 3 Agitation: 4-Moderately Restless Paroxysmal Sweats: 3 Orientation: 0-Oriented Tacttile Disturbances: 0-None Auditory Disturbances: 0-None Visual Disturbances: 0-None Headache: 0-None Present CIWA-Ar Total Score: 15 BHS Progress Note (SOAP) Subjective: shakes sweats sleepy Objective: 09/22/17 12:03 A & O x 3 sleepy but arousable Vital Signs Temperature 97.7 F 09/22/17 06:00 Pulse Rate 77 09/22/17 06:00 Respiratory Rate 18 09/22/17 06:00 Blood Pressure 120/87 09/22/17 06:00 O2 Sat by Pulse Oximetry (%) Laboratory Last Values WBC 6.0 K/mm3 (4.0-10.0) D 09/22/17 08:10 RBC 3.14 M/mm3 (3.60-5.2) L D 09/22/17 08:10 Hgb 9.4 GM/dL (10.7-15.3) L D 09/22/17 08:10 Hct 29.2 % (32.4-45.2) L D 09/22/17 08:10 MCV 93.0 fl (80-96) 09/22/17 08:10 MCH 30.1 pg (25.7-33.7) 09/22/17 08:10 MCHC 32.4 g/dl (32.0-36.0) 09/22/17 08:10 RDW 15.4 % (11.6-15.6) 09/22/17 08:10 Plt Count 225 K/MM3 (134-434) D 09/22/17 08:10 MPV 7.8 fl (7.5-11.1) 09/22/17 08:10 Sodium 144 mmol/L (136-145) 09/22/17 08:10 Potassium 3.8 mmol/L (3.5-5.1) 09/22/17 08:10 Chloride 109 mmol/L (98-107) H 09/22/17 08:10 Carbon Dioxide 32 mmol/L (21-32) 09/22/17 08:10 Anion Gap 3 (8-16) L 09/22/17 08:10 BUN 8 mg/dL (7-18) 09/22/17 08:10 Creatinine 0.6 mg/dL (0.55-1.02) 09/22/17 08:10 Creat Clearance w eGFR > 60 (>60) 09/22/17 08:10 Random Glucose 81 mg/dL (74-106) 09/22/17 08:10 Calcium 7.6 mg/dL (8.5-10.1) L 09/22/17 08:10 Total Bilirubin 0.4 mg/dL (0.2-1.0) 09/22/17 08:10 AST 25 U/L (15-37) 09/22/17 08:10 ALT 19 U/L (12-78) 09/22/17 08:10 Alkaline Phosphatase 66 U/L (45-117) 09/22/17 08:10 Total Protein 6.4 g/dl (6.4-8.2) 09/22/17 08:10 Albumin 3.0 g/dl (3.4-5.0) L 09/22/17 08:10 HIV 1&2 Antibody Screen Negative 09/22/17 08:10 HIV P24 Antigen Negative 09/22/17 08:10 labs noted Assessment: 09/22/17 12:04 withdrawal sx Plan: continue detox
[2017-09-22] MEDS: GABAPENTIN 100 MG CAPSULE (FP) PO SCH ×2 (14:42→22:43)
[2017-09-22] MEDS ORDERED: QUEtiapine FUMARATE 200 MG TABLET PO SCH (22:00)
[2017-09-22] MEDS: THIAMINE HCL 100 MG TABLET (FP) PO SCH (22:43)
[2017-09-22] MEDS: QUEtiapine FUMARATE 200 MG TABLET PO SCH (22:43)
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
[2017-09-23] MEDS: chlordiazePOXIDE HCL 25 MG CAPSULE PO SCH ×2 (06:49→10:15)
[2017-09-23] MEDS: GABAPENTIN 100 MG CAPSULE (FP) PO SCH ×3 (07:49→22:12)
[2017-09-23] MEDS ORDERED: METHADONE HCL 10 MG TABLET PO SCH (08:45)
[2017-09-23] MEDS ORDERED: METHADONE HCL 40 MG DISPERSABLE TABLET ONE (09:46)
[2017-09-23] MEDS ORDERED: METHADONE HCL 10 MG TABLET ONE (09:47)
[2017-09-23] MEDS: METHADONE 40 MG, METHADONE 30 MG PO SCH (10:15)
[2017-09-23] MEDS: PRENATAL VITAMINS W/ FOLIC ACID TABLET (FP) PO SCH (10:15)
[2017-09-23] MEDS: NICOTINE 21 MG/24 HOURS TOPICAL PATCH TD SCH (10:16)
--- NOTE | 2017-09-23 11:50 | PN ---
S CIWA - CIWA Score Nausea/Vomitin-No Nausea/No Vomiting Muscle Tremors: 3 Anxiety: 3 Agitation: 3 Paroxysmal Sweats: 1-Minimal Palms Moist Orientation: 0-Oriented Tacttile Disturbances: 1-Very Mild Itch/Numbness Auditory Disturbances: 0-None Visual Disturbances: 0-None Headache: 2-Mild CIWA-Ar Total Score: 13 BHS Progress Note (SOAP) Subjective: tremor anxiety sweat restlessness irritable Objective: 09/23/17 11:49 Vital Signs Temperature 98.2 F 09/23/17 10:29 Pulse Rate 79 09/23/17 10:29 Respiratory Rate 18 09/23/17 10:29 Blood Pressure 104/67 09/23/17 10:29 O2 Sat by Pulse Oximetry (%) Laboratory Last Values WBC 6.0 K/mm3 (4.0-10.0) D 09/22/17 08:10 RBC 3.14 M/mm3 (3.60-5.2) L D 09/22/17 08:10 Hgb 9.4 GM/dL (10.7-15.3) L D 09/22/17 08:10 Hct 29.2 % (32.4-45.2) L D 09/22/17 08:10 MCV 93.0 fl (80-96) 09/22/17 08:10 MCH 30.1 pg (25.7-33.7) 09/22/17 08:10 MCHC 32.4 g/dl (32.0-36.0) 09/22/17 08:10 RDW 15.4 % (11.6-15.6) 09/22/17 08:10 Plt Count 225 K/MM3 (134-434) D 09/22/17 08:10 MPV 7.8 fl (7.5-11.1) 09/22/17 08:10 Sodium 144 mmol/L (136-145) 09/22/17 08:10 Potassium 3.8 mmol/L (3.5-5.1) 09/22/17 08:10 Chloride 109 mmol/L (98-107) H 09/22/17 08:10 Carbon Dioxide 32 mmol/L (21-32) 09/22/17 08:10 Anion Gap 3 (8-16) L 09/22/17 08:10 BUN 8 mg/dL (7-18) 09/22/17 08:10 Creatinine 0.6 mg/dL (0.55-1.02) 09/22/17 08:10 Creat Clearance w eGFR > 60 (>60) 09/22/17 08:10 Random Glucose 81 mg/dL (74-106) 09/22/17 08:10 Calcium 7.6 mg/dL (8.5-10.1) L 09/22/17 08:10 Total Bilirubin 0.4 mg/dL (0.2-1.0) 09/22/17 08:10 AST 25 U/L (15-37) 09/22/17 08:10 ALT 19 U/L (12-78) 09/22/17 08:10 Alkaline Phosphatase 66 U/L (45-117) 09/22/17 08:10 Total Protein 6.4 g/dl (6.4-8.2) 09/22/17 08:10 Albumin 3.0 g/dl (3.4-5.0) L 09/22/17 08:10 HIV 1&2 Antibody Screen Negative 09/22/17 08:10 HIV P24 Antigen Negative 09/22/17 08:10 lab noted Assessment: 09/23/17 11:49 withdrawal sx Plan: continue detox
[2017-09-23] MEDS: chlordiazePOXIDE 5 MG CAPSULE PO SCH ×2 (18:00→22:11)
[2017-09-23] MEDS: THIAMINE HCL 100 MG TABLET (FP) PO SCH (22:11)
[2017-09-23] MEDS: QUEtiapine FUMARATE 200 MG TABLET PO SCH (22:13)
[2017-09-24] MEDS ORDERED: METHADONE HCL 40 MG DISPERSABLE TABLET ONE (04:21)
[2017-09-24] MEDS ORDERED: METHADONE HCL 10 MG TABLET ONE (04:21)
[2017-09-24] MEDS: METHADONE 40 MG, METHADONE 30 MG PO SCH (05:56)
[2017-09-24] MEDS: chlordiazePOXIDE 5 MG CAPSULE PO SCH ×2 (05:57→10:07)
[2017-09-24] MEDS: GABAPENTIN 100 MG CAPSULE (FP) PO SCH ×3 (05:57→22:16)
--- NOTE | 2017-09-24 10:01 | PN ---
BHS Progress Note (SOAP) Subjective: nausea, sweats, interrupted sleeep, anxiety, tremors Objective: 09/24/17 10:01 Vital Signs - 24 hr 09/23/17 09/23/17 09/23/17 10:29 13:21 18:00 Temperature 98.2 F 981 F H 981 F H Pulse Rate 79 77 77 Respiratory 18 18 18 Rate Blood Pressure 104/67 100/67 100/67 09/23/17 09/24/17 09/24/17 22:51 00:30 06:00 Temperature 98.1 F 97.9 F Pulse Rate 77 66 Respiratory 18 18 16 Rate Blood Pressure 104/68 101/74 Laboratory Tests 09/22/17 09/22/17 09/22/17 08:10 08:10 08:10 WBC 6.0 D RBC 3.14 L D Hgb 9.4 L D Hct 29.2 L D MCV 93.0 MCH 30.1 MCHC 32.4 RDW 15.4 Plt Count 225 D MPV 7.8 Sodium 144 Potassium 3.8 Chloride 109 H Carbon Dioxide 32 Anion Gap 3 L BUN 8 Creatinine 0.6 Creat Clearance w eGFR > 60 Random Glucose 81 Calcium 7.6 L Total Bilirubin 0.4 AST 25 ALT 19 Alkaline Phosphatase 66 Total Protein 6.4 Albumin 3.0 L HIV 1&2 Antibody Screen Negative HIV P24 Antigen Negative Assessment: 09/24/17 10:01 kelsie sx - cont detox, encourage fluids
[2017-09-24] MEDS: PRENATAL VITAMINS W/ FOLIC ACID TABLET (FP) PO SCH (10:06)
[2017-09-24] MEDS: NICOTINE 21 MG/24 HOURS TOPICAL PATCH TD SCH (10:07)
[2017-09-24] MEDS: chlordiazePOXIDE HCL 10 MG CAPSULE PO SCH ×2 (17:02→23:03)
[2017-09-24] MEDS: THIAMINE HCL 100 MG TABLET (FP) PO SCH (22:16)
[2017-09-24] MEDS: QUEtiapine FUMARATE 200 MG TABLET PO SCH (22:19)
[2017-09-25] MEDS ORDERED: METHADONE HCL 10 MG TABLET ONE (05:01)
[2017-09-25] MEDS ORDERED: METHADONE HCL 40 MG DISPERSABLE TABLET ONE (05:01)
[2017-09-25] MEDS: chlordiazePOXIDE HCL 10 MG CAPSULE PO SCH ×2 (06:39→11:07)
[2017-09-25] MEDS: GABAPENTIN 100 MG CAPSULE (FP) PO SCH (07:53)
[2017-09-25] MEDS: METHADONE 40 MG, METHADONE 30 MG PO SCH (07:53)
--- NOTE | 2017-09-25 08:31 | DS ---
[facility] Detox Discharge Summary Admission Date: 09/21/17 Discharge Date: 09/25/17 - History Present History: Alcohol Dependence, Cocaine Dependence - Physical Exam Results Vital Signs: Vital Signs Temperature 99.0 F 09/25/17 06:26 Pulse Rate 61 09/25/17 06:26 Respiratory Rate 16 09/25/17 06:26 Blood Pressure 103/70 09/25/17 06:26 O2 Sat by Pulse Oximetry (%) - Treatment Hospital Course: Detox Protocol Followed, Detoxed Safely, Responded well, Discharged Condition Good, Rehab Referral Accepted - Medication Discharge Medications: Ambulatory Orders Quetiapine Fumarate [Seroquel -] 200 mg PO HS #30 tab 05/26/17 Methadone [Dolophine -] 70 mg PO DAILY@0600 tablet MDD 70 09/24/17 - Diagnosis (1) Alcohol dependence with uncomplicated withdrawal Current Visit: Yes Status: Chronic (2) Substance induced mood disorder Current Visit: Yes Status: Acute (3) Bipolar disorder Current Visit: Yes Status: Chronic (4) Cocaine dependence, uncomplicated Current Visit: Yes Status: Chronic (5) Nicotine dependence Current Visit: Yes Status: Chronic Qualifiers: Nicotine product type: cigarettes Substance use status: uncomplicated Qualified Code(s): F17.210 - Nicotine dependence, cigarettes, uncomplicated (6) Opioid dependence on agonist therapy Current Visit: Yes Status: Chronic (7) Schizophrenia Current Visit: Yes Status: Chronic (8) Comminuted fracture Current Visit: No Status: Acute (9) Nausea & vomiting Current Visit: No Status: Acute (10) Underweight Current Visit: No Status: Acute (11) Non compliance w medication regimen Current Visit: No Status: Chronic (12) Weight decrease Current Visit: No Status: Chronic - AMA Did Patient Leave Against Medical Advice: No
[2017-09-25 10:00] VITALS: BP 106/76; PULSE 69; TEMP 98.8
[2017-09-25] MEDS: NICOTINE 21 MG/24 HOURS TOPICAL PATCH TD SCH (10:44)
[2017-09-25] MEDS: PRENATAL VITAMINS W/ FOLIC ACID TABLET (FP) PO SCH (10:44)
== END 2017-09-25 11:58 | disposition other institution (70) | DRG 773 ==
LOC: YASAS 12:14 → Y6N 15:05
PROVIDERS: ADMIT Internal Medicine; ATTEND Internal Medicine
PROC: HZ2ZZZZ Detoxification Services for Substance Abuse Treatment (ICD-10-PCS; principal; 2017-09-21)
DX: F11.20 Opioid dependence, uncomplicated (principal); F10.230 Alcohol dependence with withdrawal, uncomplicated; F14.20 Cocaine dependence, uncomplicated; F17.210 Nicotine dependence, cigarettes, uncomplicated; F19.24 Other psychoactive substance dependence with psychoactive substance-induced mood disorder; F31.9 Bipolar disorder, unspecified; F20.9 Schizophrenia, unspecified; R63.4 Abnormal weight loss; Z68.1 Body mass index [BMI] 19.9 or less, adult
CPT/HCPCS: 36415; 80053; 85027; 87389; 93005; 93010

== ENCOUNTER 2017-09-25 12:12 | Inpatient (IN) | payer OTHER ==
--- NOTE | 2017-09-25 13:17 | PN ---
[facility] Progress Note Note: was called by nurse to enter medications for this patient who was admitted form [facility], reviewed chart, RUBBER TESTER.Lauren's notes appreciated, orders for seroquel and gabapentin were placed as per medical record , patient to be evaluated in am.
[2017-09-25] MEDS ORDERED: MAGNESIUM HYDROX 2400MG/30ML ORAL SUSPENSION 30 ML CUP PO PRN (14:04)
[2017-09-25] MEDS ORDERED: ACETAMINOPHEN 325 MG TABLET (FP) PO PRN (14:04)
[2017-09-25] MEDS ORDERED: hydrOXYzine PAMOATE 50 MG CAPSULE (FP) PO PRN (14:04)
[2017-09-25] MEDS ORDERED: LOPERAMIDE HCL 2 MG CAPSULE PO PRN (14:04)
[2017-09-25] MEDS ORDERED: MENTHOL/PHENOL 1 EACH UD MM PRN (14:04)
[2017-09-25] MEDS ORDERED: guaiFENesin/D-METHORPHAN HB 10 ML UNIT-DOSE CUPS PO PRN (14:04)
[2017-09-25] MEDS ORDERED: MAG HYDROX/AL HYDROX/SIMETH 30 ML UNIT-DOSE CUP PO PRN (14:04)
[2017-09-25] MEDS ORDERED: P-EPHED 60MG/TRIPROLIDI 2.5MG TABLET PO PRN (14:04)
[2017-09-25] MEDS ORDERED: MAGNESIUM CITRATE 300 ML BOTTLE PO PRN (14:04)
[2017-09-25] MEDS ORDERED: NICOTINE POLACRILEX 2 MG GUM BUC PRN (14:04)
--- NOTE | 2017-09-25 14:04 | HP ---
[facility] Rehab Assess/Revision - Admission History Admitted to Rehab from: [facility] Date of Admission to Rehab: 09/25/2017 - Vital signs Vital Signs: Vital Signs Period Temp Pulse Resp BP Sys/Bhardwaj Pulse Ox Last 24 Hr 98 F 100 20 95/70 - Findings Detox History & Physical reviewed: Yes Concur with findings: Yes Inpatient Rehab Admission - Initial Determination Are CD services needed?: Yes Free of communicable disease: Yes Not in need of hospitalization: Yes - Rehab Admission Criteria Lacks judgement: Yes Patient is meeting Inpatient Rehab admission criteria:: Yes
[2017-09-25] MEDS: GABAPENTIN 100 MG CAPSULE (FP) PO SCH ×2 (14:55→21:19)
[2017-09-25 15:51] VITALS: BMI 20.2
[2017-09-25] MEDS: THIAMINE HCL 100 MG TABLET (FP) PO SCH (21:19)
[2017-09-25] MEDS: QUEtiapine FUMARATE 100 MG TABLET (FP) PO SCH (21:21)
[2017-09-25] MEDS: TOLNAFTATE 1% CREAM 15 GM TUBE TP SCH (21:21)
[2017-09-26] MEDS ORDERED: METHADONE HCL 10 MG TABLET ONE (05:55)
[2017-09-26] MEDS ORDERED: METHADONE HCL 40 MG DISPERSABLE TABLET ONE (05:56)
[2017-09-26] MEDS ORDERED: METHADONE HCL 40 MG DISPERSABLE TABLET PO SCH (06:00)
[2017-09-26] MEDS: METHADONE 40 MG, METHADONE 30 MG PO SCH (06:46)
[2017-09-26] MEDS: GABAPENTIN 100 MG CAPSULE (FP) PO SCH ×3 (06:46→21:18)
[2017-09-26] MEDS: NICOTINE 14 MG/24 HOURS TOPICAL PATCH TD SCH (09:45)
[2017-09-26] MEDS: PRENATAL VITAMINS W/ FOLIC ACID TABLET (FP) PO SCH (09:45)
[2017-09-26] MEDS: TOLNAFTATE 1% CREAM 15 GM TUBE TP SCH ×2 (09:45→21:19)
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
[2017-09-26] MEDS ORDERED: PT OWN MED DRAWER 7, Y5N ONE (11:07)
[2017-09-26] MEDS: QUEtiapine FUMARATE 100 MG TABLET (FP) PO SCH (21:18)
[2017-09-26] MEDS: THIAMINE HCL 100 MG TABLET (FP) PO SCH (21:18)
[2017-09-27] MEDS ORDERED: METHADONE HCL 10 MG TABLET ONE (03:12)
[2017-09-27] MEDS ORDERED: METHADONE HCL 40 MG DISPERSABLE TABLET ONE (03:12)
[2017-09-27] MEDS: METHADONE 40 MG, METHADONE 30 MG PO SCH (06:29)
[2017-09-27] MEDS: GABAPENTIN 100 MG CAPSULE (FP) PO SCH ×3 (06:30→21:18)
[2017-09-27] MEDS: TOLNAFTATE 1% CREAM 15 GM TUBE TP SCH ×2 (09:51→21:18)
[2017-09-27] MEDS: NICOTINE 14 MG/24 HOURS TOPICAL PATCH TD SCH (09:51)
[2017-09-27] MEDS: PRENATAL VITAMINS W/ FOLIC ACID TABLET (FP) PO SCH (09:51)
[2017-09-27 13:05] LABS: URINE APPEARANCE CLEAR; URINE BILIRUBIN NEGATIVE (NEGATIVE); URINE BLOOD NEGATIVE (NEGATIVE); URINE COLOR LTYELLOW; URINE GLUCOSE (UA) NEGATIVE (NEGATIVE); URINE KETONE NEGATIVE (NEGATIVE); URINE LEUK ESTERASE NEGATIVE (NEGATIVE); URINE NITRITE NEGATIVE (NEGATIVE); URINE PROTEIN NEGATIVE (NEGATIVE); URINE UROBILINOGEN NEGATIVE mg/dL (0.2-1.0)
[2017-09-27] MEDS ORDERED: PT OWN MED DRAWER 7, Y5N ONE (19:15)
[2017-09-27] MEDS: QUEtiapine FUMARATE 100 MG TABLET (FP) PO SCH (21:18)
[2017-09-27] MEDS: THIAMINE HCL 100 MG TABLET (FP) PO SCH (21:18)
[2017-09-28] MEDS ORDERED: METHADONE HCL 40 MG DISPERSABLE TABLET ONE (03:14)
[2017-09-28] MEDS ORDERED: METHADONE HCL 10 MG TABLET ONE (03:14)
[2017-09-28] MEDS: METHADONE 40 MG, METHADONE 30 MG PO SCH (06:33)
[2017-09-28] MEDS: GABAPENTIN 100 MG CAPSULE (FP) PO SCH ×3 (06:34→21:31)
[2017-09-28] MEDS: NICOTINE 14 MG/24 HOURS TOPICAL PATCH TD SCH (09:38)
[2017-09-28] MEDS: PRENATAL VITAMINS W/ FOLIC ACID TABLET (FP) PO SCH (09:38)
[2017-09-28] MEDS: TOLNAFTATE 1% CREAM 15 GM TUBE TP SCH ×2 (09:39→21:30)
[2017-09-28] MEDS ORDERED: PT OWN MED DRAWER 7, Y5N ONE (19:42)
[2017-09-28] MEDS: QUEtiapine FUMARATE 100 MG TABLET (FP) PO SCH (21:31)
[2017-09-28] MEDS: THIAMINE HCL 100 MG TABLET (FP) PO SCH (21:31)
[2017-09-29] MEDS ORDERED: METHADONE HCL 10 MG TABLET ONE (03:03)
[2017-09-29] MEDS ORDERED: METHADONE HCL 40 MG DISPERSABLE TABLET ONE (03:03)
[2017-09-29] MEDS: GABAPENTIN 100 MG CAPSULE (FP) PO SCH ×3 (06:19→21:39)
[2017-09-29] MEDS: METHADONE 40 MG, METHADONE 30 MG PO SCH (06:19)
[2017-09-29] MEDS ORDERED: PT OWN MED DRAWER 7, Y5N ONE (08:40)
[2017-09-29] MEDS: TOLNAFTATE 1% CREAM 15 GM TUBE TP SCH ×2 (10:13→21:40)
[2017-09-29] MEDS: PRENATAL VITAMINS W/ FOLIC ACID TABLET (FP) PO SCH (10:13)
[2017-09-29] MEDS: NICOTINE 14 MG/24 HOURS TOPICAL PATCH TD SCH (10:13)
[2017-09-29] MEDS: THIAMINE HCL 100 MG TABLET (FP) PO SCH (21:38)
[2017-09-29] MEDS: QUEtiapine FUMARATE 100 MG TABLET (FP) PO SCH (21:39)
[2017-09-30] MEDS ORDERED: METHADONE HCL 10 MG TABLET ONE (05:44)
[2017-09-30] MEDS ORDERED: METHADONE HCL 40 MG DISPERSABLE TABLET ONE (05:45)
[2017-09-30] MEDS: GABAPENTIN 100 MG CAPSULE (FP) PO SCH ×3 (06:37→21:34)
[2017-09-30] MEDS: METHADONE 40 MG, METHADONE 30 MG PO SCH (06:37)
[2017-09-30] MEDS: PRENATAL VITAMINS W/ FOLIC ACID TABLET (FP) PO SCH (10:26)
[2017-09-30] MEDS: TOLNAFTATE 1% CREAM 15 GM TUBE TP SCH ×2 (10:27→21:34)
[2017-09-30] MEDS: NICOTINE 14 MG/24 HOURS TOPICAL PATCH TD SCH (10:27)
[2017-09-30] MEDS ORDERED: PT OWN MED DRAWER 7, Y5N ONE (10:48)
[2017-09-30] MEDS: THIAMINE HCL 100 MG TABLET (FP) PO SCH (21:34)
[2017-09-30] MEDS: QUEtiapine FUMARATE 100 MG TABLET (FP) PO SCH (21:35)
[2017-10-01] MEDS ORDERED: METHADONE HCL 40 MG DISPERSABLE TABLET ONE (03:26)
[2017-10-01] MEDS ORDERED: METHADONE HCL 10 MG TABLET ONE (03:26)
[2017-10-01] MEDS: METHADONE 40 MG, METHADONE 30 MG PO SCH (06:59)
[2017-10-01] MEDS: GABAPENTIN 100 MG CAPSULE (FP) PO SCH ×2 (07:00→13:18)
[2017-10-01 07:27] VITALS: BP 115/83; PULSE 65; TEMP 98.1
[2017-10-01] MEDS ORDERED: PT OWN MED DRAWER 7, Y5N ONE (09:08)
[2017-10-01] MEDS: PRENATAL VITAMINS W/ FOLIC ACID TABLET (FP) PO SCH (10:17)
[2017-10-01] MEDS: NICOTINE 14 MG/24 HOURS TOPICAL PATCH TD SCH (10:17)
[2017-10-01] MEDS: TOLNAFTATE 1% CREAM 15 GM TUBE TP SCH (10:18)
[2017-10-01] MEDS ORDERED: LIDOCAINE VISCOUS 2% ORAL/TOP 20 ML UNIT-DOSE CUP MM PRN (14:19)
[2017-10-01] MEDS ORDERED: IBUPROFEN 600 MG TABLET (FP) PO PRN (14:21)
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
[2017-10-01] MEDS ORDERED: CYCLOBENZAPRINE HCL 5 MG TABLET PO SCH (14:30)
--- NOTE | 2017-10-01 16:48 | PN ---
Psychiatric Progress Note Vital Signs: Vital Signs Period Temp Pulse Resp BP Sys/Bhardwaj Pulse Ox Last 24 Hr 98.1 F 65 16-18 115/83 Date of Session: 10/01/17 Chief Complaint:: Discharge visit HPI: Alcohol,Opiate and Cocaine dependence comorbid with Schizophrenia. ROS: Unremarkable Current Medications: Active Medications Generic Name Dose Route Start Last Admin Trade Name Freq PRN Reason Stop Dose Admin Al Hydroxide/Mg Hydroxide 30 ml 09/25/17 14:04 09/25/17 15:54 Mylanta Oral Suspension - PO 30 ml Q6H PRN Administration DYSPEPSIA Cyclobenzaprine HCl 5 mg 10/01/17 14:30 10/01/17 15:03 Cyclobenzaprine Hcl PO 5 mg TID JOSE Administration Eucalyptus/Menthol/Phenol/Sorbitol 1 each 09/25/17 14:04 Cepastat Lozenge - MM Q4H PRN SORE THROAT Gabapentin 100 mg 09/25/17 14:00 10/01/17 13:18 Neurontin - PO 100 mg TID JOSE Administration Guaifenesin 10 ml 09/25/17 14:04 Robitussin Dm - PO Q6H PRN COUGH Hydroxyzine Pamoate 50 mg 09/25/17 14:04 Vistaril - PO Q4H PRN AGITATION Ibuprofen 600 mg 10/01/17 14:21 Motrin - PO Q8H PRN Back pain and Dental pain Lidocaine HCl 20 ml 10/01/17 14:19 Xylocaine 2% Viscous Oral - MM TID PRN ORAL PAIN/MOUTH SORES Loperamide HCl 4 mg 09/25/17 14:04 Imodium - PO Q6H PRN DIARRHEA Magnesium Citrate 300 ml 09/25/17 14:04 Citroma - PO Q48H PRN CONSTIPATION Magnesium Hydroxide 30 ml 09/25/17 14:04 Milk Of Magnesia - PO DAILY PRN CONSTIPATION Methadone HCl 40 mg/ Methadone 70 mg 09/26/17 06:00 10/01/17 06:59 HCl 30 mg PO 10/02/17 05:59 70 mg DAILY@0600 JOSE Administration Nicotine 14 mg 09/26/17 10:00 10/01/17 10:17 Nicoderm Patch - TD 14 mg DAILY JOSE Administration Nicotine Polacrilex 2 mg 09/25/17 14:04 Nicorette Gum - BUC Q2H PRN NICOTINE REPLACEMENT RX Multivit/Folic Acid/Iron 1 tab 09/26/17 10:00 10/01/17 10:17 Vitamins (Sjr) - PO 1 tab DAILY JOSE Administration Pseudoephedrine/Triprolidine 1 combo 09/25/17 14:04 Actifed - PO TID PRN NASAL CONGESTION Quetiapine Fumarate 100 mg 09/25/17 22:00 09/30/17 21:35 Seroquel - PO 100 mg HS JOSE Administration Thiamine HCl 100 mg 09/25/17 22:00 09/30/17 21:34 Vitamin B1 - PO 100 mg HS JOSE Administration Tolnaftate 1 applic 09/25/17 22:00 10/01/17 10:18 Tinactin 1% Cream - TP 1 applic BID JOSE Administration Current Side Effect: No Lab tests ordered: No Lab tests reviewed: Yes Provider note:: Patient completed this program today(early discharge).She has partially met her goals and will continue to address her issues on outpatient basis .Patient reports finding that current medications:Seroquel 100 mg po hs and Neurontin 100 mg po tid help to cope with anxiety,mood instability, insomnia.Scripts for 30 days days provided. Supportive therapy provided focusing on relapse prevention. Patient is stable for discharge. Total face to face time:: 25 Mental Status Exam - Mental Status Exam Alert and Oriented to: Time, Place, Person Cognitive Function: Grossly Intact Patient Appearance: Well Groomed Mood: Euthymic Affect: Mood Congruent Patient Behavior: Cooperative Speech Pattern: Clear Voice Loudness: Normal Thought Process: Goal Oriented Thought Disorder: Not Present Hallucinations: Denies Suicidal Ideation: Denies Homicidal Ideation: Denies Insight/Judgement: Fair Sleep: Fair Appetite: Good Muscle strength/Tone: Normal Gait/Station: Normal Psychiatric Treatment Plan - Problem List (3) Nicotine dependence Qualifiers: (4) Alcohol dependence Qualifiers: Substance use status: uncomplicated Qualified Code(s): F10.20 - Alcohol dependence, uncomplicated (5) Cocaine dependence Qualifiers: Substance use status: uncomplicated Qualified Code(s): F14.20 - Cocaine dependence, uncomplicated
== END 2017-10-01 17:45 | disposition home or self-care (01) | DRG 772 ==
LOC: YASAS 12:12 → Y3E 12:13
PROVIDERS: ADMIT Psychiatry & Neurology Psychiatry; ATTEND Psychiatry & Neurology Psychiatry
PROC: HZ42ZZZ Group Counseling for Substance Abuse Treatment, Cognitive-Behavioral (ICD-10-PCS; principal; 2017-09-25)
DX: F10.20 Alcohol dependence, uncomplicated (principal); F11.20 Opioid dependence, uncomplicated; F14.20 Cocaine dependence, uncomplicated; F17.210 Nicotine dependence, cigarettes, uncomplicated; F20.9 Schizophrenia, unspecified; M41.9 Scoliosis, unspecified; M54.5 Low back pain; K08.89 Other specified disorders of teeth and supporting structures; K08.9 Disorder of teeth and supporting structures, unspecified; R26.2 Difficulty in walking, not elsewhere classified; Z99.89 Dependence on other enabling machines and devices; Z86.69 Personal history of other diseases of the nervous system and sense organs; Z91.013 Allergy to seafood
CPT/HCPCS: 81003

== ENCOUNTER 2018-01-09 14:23 | Inpatient (IN) | payer OTHER ==
[2018-01-09 17:19] VITALS: BMI 20.5
--- NOTE | 2018-01-09 18:52 | HP ---
CIWA Score - CIWA Score Nausea/Vomitin Muscle Tremors: 2 Anxiety: 4-Mod. Anxious/Guarded Agitation: 3 Paroxysmal Sweats: 3 Orientation: 0-Oriented Tacttile Disturbances: 0-None Auditory Disturbances: 1-Very Mild Visual Disturbances: 1-Very Mild Sensitivity Headache: 0-None Present CIWA-Ar Total Score: 19 Admission ROS S - HPI Chief Complaint: "I'm trying to get better." Patient is here to Detox from Alcohol. Allergies/Adverse Reactions: Allergies Allergy/AdvReac Type Severity Reaction Status Date / Time shellfish derived Allergy Severe Swelling Verified 01/09/18 17:19 No Known Drug Allergies Allergy Verified 01/09/18 17:19 History of Present Illness: Patient is a 47 YO female here to Detox from Alcohol. Patient has had several previous Detox/Rehab admissions at [facility] (Last: 09/2017). Patient also had a Rehab admission at [facility] ([place], [place] in 2017. Patient Denies any extended periods of sobriety in recent years. Patient is a client at [facility] ( [facility] [place] Daily Dose: 60 mg Daily; Last Day Medicated: 01/09/2018; Verification Pending. Exam Limitations: No Limitations - Ebola screening Have you traveled outside of the country in the last 21 days: No (N) Have you had contact with anyone from an Ebola affected area: No Have you been sick,other than usual withdrawal symptoms: No Do you have a fever: No - Review of Systems Constitutional: Chills, Diaphoresis, Fever, Loss of Appetite, Malaise, Night Sweats, Changes in sleep, Unintentional Wgt. Loss (Lost approx. 80 lbs. over last 6 months.) EENT: reports: Hearing Loss (Partial, Right Ear.) Respiratory: reports: No Symptoms reported Cardiac: reports: No Symptoms Reported GI: reports: Constipated, Nausea, Poor Appetite, Vomiting, Abdominal cramping : reports: No Symptoms Reported Musculoskeletal: reports: Back Pain, Joint Pain, Joint Stiffness Integumentary: reports: No Symptoms Reported Neuro: reports: Seizure (Last one approx. 10 years ago, likely due to ETOH.), Tremors Endocrine: reports: No Symptoms Reported Hematology: reports: Anemia (History of Iron-Deficiency type.), Other (History of Low Potassium.) Psychiatric: reports: Judgement Intact, Mood/Affect Appropiate, Orientated x3, Anxious, Depressed (Meds. in past (Zoloft, Seroquel), None currently.) Other Systems: Reviewed and Negative Patient History - Patient Medical History Hx Anemia: Yes (Iron-Deficiency type in past, No meds.) Hx Asthma: Yes (Uses MDI PRN.) Hx Chronic Obstructive Pulmonary Disease (COPD): No Hx Cancer: No Hx Cardiac Disorders: No Hx Congestive Heart Failure: No Hx Hypertension: No Hx Hypercholesterolemia: No Hx Pacemaker: No HX Cerebrovascular Accident: No Hx Seizures: Yes (Last one approx. 10 years ago, likely due to ETOH) Hx Dementia: No Hx Diabetes: No Hx Gastrointestinal Disorders: No Hx Liver Disease: No Hx Genitourinary Disorders: No Hx Sexually Transmitted Disorders: No Hx Renal Disease (ESRD): No Hx Thyroid Disease: No Hx Human Immunodeficiency Virus (HIV): No (Last Tested: 09/2017: NEGATIVE.) Hx Hepatitis C: No (Last Tested: 09/2017: NEGATIVE.) Hx Depression: Yes (Meds. in past, none curently.) Hx Suicide Attempt: Yes (OD pills, Cut wrists, approx. 15 years ago. PATIENT DENIES CURRENT SI / HI.) Hx Bipolar Disorder: Yes (No current meds.) Hx Schizophrenia: Yes (No current meds.) Other Medical History: Scoliosis. - Patient Surgical History Past Surgical History: Yes Hx Neurologic Surgery: No Hx Cataract Extraction: No Hx Cardiac Surgery: No Hx Lung Surgery: No Hx Breast Surgery: No Hx Breast Biopsy: No Hx Abdominal Surgery: No Hx Appendectomy: No Hx Cholecystectomy: No Hx Genitourinary Surgery: No Hx Section: Yes (x1 (2000).) Hx Orthopedic Surgery: No Hx Hysterectomy: No Other Surgical History: DENIES. Anesthesia Reaction: Yes (Tendas to Wake Prematurely.) - PPD History Previous Implant?: Yes Documented Results: Negative w/proof Implanted On Prior [facility] Admission?: Yes Date: 02/23/17 Results: 0 mm PPD to be Administered?: No - Reproductive History Patient is a Female of Child Bearing Age (11 -55 yrs old): Yes Last Menstrual Period: 12/04/17 Patient : No - Smoking Cessation Smoking history: Current every day smoker Have you smoked in the past 12 months: Yes Aproximately how many cigarettes per day: 20 Cigars Per Day: 0 Hx Chewing Tobacco Use: No Initiated information on smoking cessation: Yes 'Breaking Loose' booklet given: 01/09/18 (GIVEN TO PATIENT.) - Substance & Tx. History Hx Alcohol Use: Yes Hx Substance Use: Yes Substance Use Type: Alcohol, Cocaine, Heroin, Opiates Hx Substance Use Treatment: Yes (Previous Detox/Rehab admissions at [facility] (Last: 09/2017).) - Substances Abused Alcohol Route: Oral Frequency: Daily Amount used: 5-6 beers/ 1 pint vodka Age of first use: 12 Date of Last Use: 01/09/18 Cocaine Route: Injection Frequency: Daily Amount used: 3-4 bags Age of first use: 15 Date of Last Use: 01/09/18 Heroin Route: Injection Frequency: Daily Amount used: 3-4 bags Age of first use: 15 Date of Last Use: 01/09/18 Family Disease History - Family Disease History Family Disease History: Other: Father ( HIV (age unknown)), Mother ( LOST CONTACT) Admission Physical Exam [facility] - Vital Signs Vital Signs: Vital Signs - 24 hr 01/09/18 17:17 Temperature 99.2 F Pulse Rate 100 H Respiratory 18 Rate Blood Pressure 104/70 - Physical General Appearance: Yes: No Apparent Distress, Nourished, Appropriately Dressed , Tremorous, Anxious HEENTM: Yes: Hearing grossly Normal, Normocephalic, Normal Voice, PARVIN, Pharynx Normal Respiratory: Yes: Chest Non-Tender, No Respiratory Distress, No Accessory Muscle Use, Wheezing Neck: Yes: No masses,lesions,Nodules, Supple, Trachea in good position Breast: Yes: Breast Exam Deferred Cardiology: Yes: Regular Rhythm, Regular Rate, S1, S2, Tachycardia Abdominal: Yes: Normal Bowel Sounds, Non Tender, Flat, Soft Genitourinary: Yes: Within Normal Limits Back: Yes: CVA Tenderness, Decreased Range of Motion Musculoskeletal: Yes: Gait Steady, Back pain, Joint Stiffness, Muscle Pain Extremities: Yes: Normal Capillary Refill, Tremors Neurological: Yes: Fully Oriented, Alert, Normal Mood/Affect, Normal Response Integumentary: Yes: Normal Color, Dry, Warm, Track [place] (Noted on Left Upper Arm, Bilateral Forearms, and on Bilateral Lower Legs. No signs of infection noted at affected sites.) Lymphatic: Yes: Within Normal Limits - Diagnostic (1) Alcohol dependence with uncomplicated withdrawal Current Visit: Yes Status: Acute (2) Cocaine dependence, uncomplicated Current Visit: Yes Status: Chronic (3) Nicotine dependence Current Visit: Yes Status: Chronic Qualifiers: Nicotine product type: cigarettes Substance use status: uncomplicated Qualified Code(s): F17.210 - Nicotine dependence, cigarettes, uncomplicated (4) Opioid dependence on agonist therapy Current Visit: Yes Status: Chronic (5) Scoliosis Current Visit: Yes Status: Chronic Qualifiers: Scoliosis type: unspecified scoliosis Spinal region: thoracolumbar Qualified Code(s): M41.9 - Scoliosis, unspecified (6) Weight decrease Current Visit: Yes Status: Acute (7) Methadone maintenance therapy patient Current Visit: Yes Status: Chronic (8) Asthma Current Visit: Yes Status: Chronic Qualifiers: Asthma severity: mild Asthma persistence: intermittent Asthma complication type: uncomplicated Qualified Code(s): J45.20 - Mild intermittent asthma, uncomplicated (9) History of depression Current Visit: Yes Status: Suspected (10) History of bipolar disorder Current Visit: Yes Status: Suspected (11) History of schizophrenia Current Visit: Yes Status: Suspected Cleared for Admission S - Detox or Rehab [facility] Level of Care: Medically Managed Detox Regimen/Protocol: Librium [facility] Breath Alcohol Content Breath Alcohol Content: 0 Urine Pregancy Test - Result Urine Test Results: Negative- NO Line Present Urine Drug Screen - Results Drug Screen Negative: No Urine Drug Screen Results: ARMIN-Cocaine, OPI-Opiates, MTD-Methadone
[2018-01-09] MEDS ORDERED: LOPERAMIDE HCL 2 MG CAPSULE PO PRN (19:20)
[2018-01-09] MEDS ORDERED: MAG HYDROX/AL HYDROX/SIMETH 30 ML UNIT-DOSE CUP PO PRN (19:20)
[2018-01-09] MEDS ORDERED: MENTHOL/PHENOL 1 EACH UD MM PRN (19:20)
[2018-01-09] MEDS ORDERED: guaiFENesin/D-METHORPHAN HB 10 ML UNIT-DOSE CUPS PO PRN (19:20)
[2018-01-09] MEDS ORDERED: NICOTINE POLACRILEX 2 MG GUM BC PRN (19:20)
[2018-01-09] MEDS ORDERED: chlordiazePOXIDE HCL 25 MG CAPSULE PO PRN (19:20)
[2018-01-09] MEDS ORDERED: P-EPHED 60MG/TRIPROLIDI 2.5MG TABLET PO PRN (19:20)
[2018-01-09] MEDS ORDERED: ACETAMINOPHEN 325 MG TABLET (FP) PO PRN (19:20)
[2018-01-09] MEDS ORDERED: MAGNESIUM HYDROX 2400MG/30ML ORAL SUSPENSION 30 ML CUP PO PRN (19:20)
[2018-01-09] MEDS ORDERED: MAGNESIUM CITRATE 300 ML BOTTLE PO PRN (19:20)
[2018-01-09] MEDS ORDERED: ALBUTEROL SO4 18 GM HFA INHALER IH PRN (19:23)
[2018-01-09] MEDS ORDERED: chlordiazePOXIDE HCL 25 MG CAPSULE PO ONE (19:45)
[2018-01-09] MEDS ORDERED: MELATONIN 5 MG TABLETS PO PRN (22:00)
[2018-01-09] MEDS: chlordiazePOXIDE HCL 25 MG CAPSULE PO SCH (22:28)
[2018-01-09] MEDS: BACITRACIN 0.9 GM PACKET TP SCH (22:28)
[2018-01-09] MEDS: THIAMINE HCL 100 MG TABLET (FP) PO SCH (22:29)
[2018-01-09] MEDS: NICOTINE 21 MG/24 HOURS TOPICAL PATCH TD SCH (22:29)
[2018-01-09] MEDS: GABAPENTIN 300 MG CAPSULE (FP) PO SCH (22:30)
[2018-01-10] MEDS: GABAPENTIN 300 MG CAPSULE (FP) PO SCH ×3 (05:50→23:10)
[2018-01-10] MEDS: chlordiazePOXIDE HCL 25 MG CAPSULE PO SCH ×4 (05:51→23:10)
[2018-01-10] MEDS ORDERED: METHADONE HCL 10 MG TABLET PO SCH (09:30)
[2018-01-10] MEDS: BACITRACIN 0.9 GM PACKET TP SCH ×2 (10:22→23:10)
[2018-01-10] MEDS: PRENATAL VITAMINS W/ FOLIC ACID TABLET (FP) PO SCH (10:22)
[2018-01-10] MEDS: NICOTINE 21 MG/24 HOURS TOPICAL PATCH TD SCH (10:23)
--- NOTE | 2018-01-10 10:27 | PN ---
[facility] Progress Note Note: methadone verification by nurse from the program 60 mgs/day,last medicate
[2018-01-10 10:52] LABS: HEMATOCRIT 31.2 % (32.4-45.2); HEMOGLOBIN 10.3 GM/dL (10.7-15.3); MCH 30.8 pg (25.7-33.7); MCHC 33.1 g/dl (32.0-36.0); MEAN CELL VOLUME 93.1 fl (80-96); PLATELET COUNT 270 K/MM3 (134-434); RBC 3.35 M/mm3 (3.60-5.2); RDW 15.8 % (11.6-15.6); WHITE BLOOD COUNT 8.4 K/mm3 (4.0-10.0)
[2018-01-10] MEDS ORDERED: METHADONE HCL 40 MG DISPERSABLE TABLET ONE (10:56)
[2018-01-10] MEDS ORDERED: METHADONE HCL 10 MG TABLET (FOR DETOX USE ONLY) ONE (10:56)
[2018-01-10] MEDS: METHADONE 40 MG, METHADONE (DETOX) 20 MG PO SCH (10:59)
[2018-01-10 11:03] LABS: CHLORIDE 106 mmol/L (98-107); POTASSIUM 3.8 mmol/L (3.5-5.1); SODIUM 142 mmol/L (136-145)
[2018-01-10 11:09] LABS: ALBUMIN 2.9 g/dl (3.4-5.0); ALK PHOS 64 U/L (45-117); ANION GAP 5 (8-16); BILIRUBIN,TOTAL 0.3 mg/dL (0.2-1.0); BLOOD UREA NITROGEN 10 mg/dL (7-18); CALCIUM 8.1 mg/dL (8.5-10.1); CO2 31 mmol/L (21-32); CREATININE 0.6 mg/dL (0.55-1.02); GLUCOSE,RANDOM 88 mg/dL (74-106); SGOT/AST 21 U/L (15-37); SGPT/ALT 21 U/L (12-78); TOT PROT 6.7 g/dl (6.4-8.2)
--- NOTE | 2018-01-10 14:12 | PN ---
S CIWA - CIWA Score Nausea/Vomitin Muscle Tremors: 3 Anxiety: 3 Agitation: 2 Paroxysmal Sweats: 1-Minimal Palms Moist Orientation: 0-Oriented Tacttile Disturbances: 1-Very Mild Itch/Numbness Auditory Disturbances: 1-Very Mild Visual Disturbances: 0-None Headache: 2-Mild CIWA-Ar Total Score: 16 S Progress Note (SOAP) Subjective: alert,irritable,anxious,interrupted sleep,tremor Objective: 01/10/18 14:09 Vital Signs Temperature 97.7 F 01/10/18 10:51 Pulse Rate 75 01/10/18 10:51 Respiratory Rate 18 01/10/18 10:51 Blood Pressure 113/71 01/10/18 10:51 O2 Sat by Pulse Oximetry (%) ekg nsr inverted t in 3,v4 to v6 qt 418/473 no chest pain,no sob,no dizziness Laboratory Last Values WBC 8.4 K/mm3 (4.0-10.0) D 01/10/18 07:55 RBC 3.35 M/mm3 (3.60-5.2) L 01/10/18 07:55 Hgb 10.3 GM/dL (10.7-15.3) L 01/10/18 07:55 Hct 31.2 % (32.4-45.2) L 01/10/18 07:55 MCV 93.1 fl (80-96) 01/10/18 07:55 MCH 30.8 pg (25.7-33.7) 01/10/18 07:55 MCHC 33.1 g/dl (32.0-36.0) 01/10/18 07:55 RDW 15.8 % (11.6-15.6) H 01/10/18 07:55 Plt Count 270 K/MM3 (134-434) 01/10/18 07:55 MPV 8.0 fl (7.5-11.1) 01/10/18 07:55 Sodium 142 mmol/L (136-145) 01/10/18 07:55 Potassium 3.8 mmol/L (3.5-5.1) 01/10/18 07:55 Chloride 106 mmol/L (98-107) 01/10/18 07:55 Carbon Dioxide 31 mmol/L (21-32) 01/10/18 07:55 Anion Gap 5 (8-16) L 01/10/18 07:55 BUN 10 mg/dL (7-18) 01/10/18 07:55 Creatinine 0.6 mg/dL (0.55-1.02) 01/10/18 07:55 Creat Clearance w eGFR > 60 (>60) 01/10/18 07:55 Random Glucose 88 mg/dL (74-106) 01/10/18 07:55 Calcium 8.1 mg/dL (8.5-10.1) L 01/10/18 07:55 Total Bilirubin 0.3 mg/dL (0.2-1.0) D 01/10/18 07:55 AST 21 U/L (15-37) 01/10/18 07:55 ALT 21 U/L (12-78) 01/10/18 07:55 Alkaline Phosphatase 64 U/L (45-117) 01/10/18 07:55 Total Protein 6.7 g/dl (6.4-8.2) 01/10/18 07:55 Albumin 2.9 g/dl (3.4-5.0) L 01/10/18 07:55 RPR Titer Nonreactive (NONREACTIVE) 01/10/18 08:10 HIV 1&2 Antibody Screen Negative 01/10/18 07:55 HIV P24 Antigen Negative 01/10/18 07:55 01/10/18 14:11 labs pending Assessment: 01/10/18 14:11 withdrawal symptom Plan: continue detox
--- NOTE | 2018-01-10 14:49 | EKG ---
Test Reason : Blood Pressure : / mmHG Vent. Rate : 080 BPM Atrial Rate : 080 BPM P-R Int : 142 ms QRS Dur : 080 ms QT Int : 394 ms P-R-T Axes : 069 034 009 degrees QTc Int : 454 ms NORMAL SINUS RHYTHM NONSPECIFIC T WAVE ABNORMALITY ABNORMAL ECG WHEN COMPARED WITH ECG OF 21-SEP-2017 17:41, CRITERIA FOR SEPTAL INFARCT ARE NO LONGER PRESENT Confirmed by MD Billy, Felix ([id number]) on 01/10/2018 2:49:00 PM Referred By: Confirmed By:Felix Cervantes MD
--- NOTE | 2018-01-10 18:14 | CONSULT ---
[facility] Psychiatric Consult - Data Date of interview: 01/10/18 Admission source: [facility] Identifying data: One of several admissions to [facility] for this 47 y/o female seeking detox treatment on for heroin and cocaine dependence.Patient is ,a mother of six,domiciled,unemployed and supported on SSI benefits. Substance Abuse History: Confirmed by patient in this interview.Smoking history : Current every day smoker. Have you smoked in the past 12 months: Yes. Aproximately how many cigarettes per day: 20. Cigars Per Day: 0. Hx Chewing Tobacco Use: No. Initiated information on smoking cessation: Yes. 'Breaking Loose' booklet given: 01/09/18 (GIVEN TO PATIENT.). - Substance & Tx. History. Hx Alcohol Use: Yes. Hx Substance Use: Yes. Substance Use Type: Alcohol, Cocaine, Heroin, Opiates. Hx Substance Use Treatment: Yes (Previous Detox/ Rehab admissions at [facility] (Last: 09/2017).). - Substances Abused. Alcohol. Route: Oral. Frequency: Daily. Amount used: 5-6 beers/ 1 pint vodka. Age of first use: 12. Date of Last Use: 01/09/18. Cocaine. Route: Injection. Frequency: Daily. Amount used: 3-4 bags. Age of first use: 15. Date of Last Use: 01/09/18. Heroin. Route: Injection. Frequency: Daily. Amount used: 3 -4 bags. Age of first use: 15. Date of Last Use: 01/09/18 Medical History: Anemia,bronchial asthma,scoliosis,antecedent of withdrawal- related seizures and a history of one section. Psychiatric History: Patient endorses the diagnosis of Bipolar Disorder and she presents with an extensive history of multiple psychiatric hospitalizations ( [facility] in [place]).Patient reports no current affiliation with psychiatric OPD care providers.Has been off psychotropic medications for several weeks or months.History of multiple suicide attempts (wrist-cutting,overdoses with drugs or medications).Currently on methadone maintenance (60 mg/day). Physical/Sexual Abuse/Trauma History: Not discussed.Patient declines. Additional Comment: Urine Drug Screen Results: ARMIN-Cocaine, OPI-Opiates, MTD- Methadone.Noted. Mental Status Exam - Mental Status Exam Alert and Oriented to: Place, Person Cognitive Function: Impaired (mildly impaired ; patient is falling asleep during interview) Patient Appearance: Well Groomed (thin habitus) Mood: Withdrawn Affect: Mood Congruent Patient Behavior: Sedated (mildly sedated), Fatigued Speech Pattern: Delayed, Slurred Voice Loudness: Moderately Soft/Quiet Thought Process: Goal Oriented (able to xecute simple tasks on command) Hallucinations: Denies Suicidal Ideation: Denies Homicidal Ideation: Denies Insight/Judgement: Poor Sleep: Well (daytime sleepiness) Appetite: Poor, Weight loss Gait/Station: Other (not observed ; patient remains in bed during entire encounter) Psychiatric Findings - Problem List (Mayer 1, 2,3) (1) Opioid dependence on agonist therapy Current Visit: Yes Status: Acute (2) Alcohol dependence with uncomplicated withdrawal Current Visit: Yes Status: Acute (3) Cocaine dependence, uncomplicated Current Visit: Yes Status: Acute (4) Nicotine dependence Current Visit: Yes Status: Acute Qualifiers: Nicotine product type: cigarettes Substance use status: uncomplicated Qualified Code(s): F17.210 - Nicotine dependence, cigarettes, uncomplicated (5) Non compliance w medication regimen Current Visit: Yes Status: Chronic (6) History of schizophrenia Current Visit: Yes Status: Suspected Comment: As per records. - Initial Treatment Plan Initial Treatment Plan: Psychoeducation.Detoxification.Observation.No orders from Psychiatry (patient sedated).
[2018-01-10] MEDS: THIAMINE HCL 100 MG TABLET (FP) PO SCH (23:10)
[2018-01-11] MEDS ORDERED: METHADONE HCL 10 MG TABLET (FOR DETOX USE ONLY) ONE (04:13)
[2018-01-11] MEDS ORDERED: METHADONE HCL 40 MG DISPERSABLE TABLET ONE (04:13)
[2018-01-11] MEDS: chlordiazePOXIDE HCL 25 MG CAPSULE PO SCH ×3 (05:25→17:18)
[2018-01-11] MEDS: GABAPENTIN 300 MG CAPSULE (FP) PO SCH ×3 (05:25→22:32)
[2018-01-11] MEDS: METHADONE 40 MG, METHADONE (DETOX) 20 MG PO SCH (05:26)
[2018-01-11] MEDS: BACITRACIN 0.9 GM PACKET TP SCH ×2 (10:57→22:32)
[2018-01-11] MEDS: PRENATAL VITAMINS W/ FOLIC ACID TABLET (FP) PO SCH (10:57)
[2018-01-11] MEDS: NICOTINE 21 MG/24 HOURS TOPICAL PATCH TD SCH (10:59)
--- NOTE | 2018-01-11 12:16 | PN ---
S CIWA - CIWA Score Nausea/Vomitin-Mild Nausea/No Vomiting Muscle Tremors: 4-Moderate,w/Arms Extend Anxiety: 3 Agitation: 3 Paroxysmal Sweats: 1-Minimal Palms Moist Orientation: 0-Oriented Tacttile Disturbances: 1-Very Mild Itch/Numbness Auditory Disturbances: 0-None Visual Disturbances: 0-None Headache: 0-None Present CIWA-Ar Total Score: 13 BHS Progress Note (SOAP) Subjective: sweat tremor restlessness anxiety irritable Objective: 01/11/18 12:15 Vital Signs Temperature 97.7 F 01/11/18 10:00 Pulse Rate 78 01/11/18 10:00 Respiratory Rate 18 01/11/18 10:00 Blood Pressure 101/68 01/11/18 10:00 O2 Sat by Pulse Oximetry (%) Laboratory Last Values WBC 8.4 K/mm3 (4.0-10.0) D 01/10/18 07:55 RBC 3.35 M/mm3 (3.60-5.2) L 01/10/18 07:55 Hgb 10.3 GM/dL (10.7-15.3) L 01/10/18 07:55 Hct 31.2 % (32.4-45.2) L 01/10/18 07:55 MCV 93.1 fl (80-96) 01/10/18 07:55 MCH 30.8 pg (25.7-33.7) 01/10/18 07:55 MCHC 33.1 g/dl (32.0-36.0) 01/10/18 07:55 RDW 15.8 % (11.6-15.6) H 01/10/18 07:55 Plt Count 270 K/MM3 (134-434) 01/10/18 07:55 MPV 8.0 fl (7.5-11.1) 01/10/18 07:55 Sodium 142 mmol/L (136-145) 01/10/18 07:55 Potassium 3.8 mmol/L (3.5-5.1) 01/10/18 07:55 Chloride 106 mmol/L (98-107) 01/10/18 07:55 Carbon Dioxide 31 mmol/L (21-32) 01/10/18 07:55 Anion Gap 5 (8-16) L 01/10/18 07:55 BUN 10 mg/dL (7-18) 01/10/18 07:55 Creatinine 0.6 mg/dL (0.55-1.02) 01/10/18 07:55 Creat Clearance w eGFR > 60 (>60) 01/10/18 07:55 Random Glucose 88 mg/dL (74-106) 01/10/18 07:55 Calcium 8.1 mg/dL (8.5-10.1) L 01/10/18 07:55 Total Bilirubin 0.3 mg/dL (0.2-1.0) D 01/10/18 07:55 AST 21 U/L (15-37) 01/10/18 07:55 ALT 21 U/L (12-78) 01/10/18 07:55 Alkaline Phosphatase 64 U/L (45-117) 01/10/18 07:55 Total Protein 6.7 g/dl (6.4-8.2) 01/10/18 07:55 Albumin 2.9 g/dl (3.4-5.0) L 01/10/18 07:55 RPR Titer Nonreactive (NONREACTIVE) 01/10/18 08:10 Hep C Ab Diagnostic 0.1 s/co ratio (0.0-0.9) 01/10/18 07:55 Liver Fibrosis Interp (.) 01/10/18 07:55 HIV 1&2 Antibody Screen Negative 01/10/18 07:55 HIV P24 Antigen Negative 01/10/18 07:55 lab noted Assessment: 01/11/18 12:15 withdrawal sx Plan: continue detox
[2018-01-11] MEDS: IBUPROFEN 400 MG TABLET (FP) PO PRN (18:01)
[2018-01-11] MEDS: chlordiazePOXIDE 5 MG CAPSULE PO SCH (22:32)
[2018-01-11] MEDS: THIAMINE HCL 100 MG TABLET (FP) PO SCH (22:32)
[2018-01-12] MEDS ORDERED: METHADONE HCL 40 MG DISPERSABLE TABLET ONE (04:26)
[2018-01-12] MEDS ORDERED: METHADONE HCL 10 MG TABLET (FOR DETOX USE ONLY) ONE (04:26)
[2018-01-12] MEDS: chlordiazePOXIDE 5 MG CAPSULE PO SCH ×3 (06:08→17:25)
[2018-01-12] MEDS: GABAPENTIN 300 MG CAPSULE (FP) PO SCH ×3 (06:08→22:25)
[2018-01-12] MEDS: METHADONE 40 MG, METHADONE (DETOX) 20 MG PO SCH (06:08)
--- NOTE | 2018-01-12 09:06 | EKG ---
Test Reason : Blood Pressure : / mmHG Vent. Rate : 077 BPM Atrial Rate : 077 BPM P-R Int : 126 ms QRS Dur : 082 ms QT Int : 418 ms P-R-T Axes : 058 022 -10 degrees QTc Int : 473 ms NORMAL SINUS RHYTHM NONSPECIFIC T WAVE ABNORMALITY PROLONGED QT ABNORMAL ECG WHEN COMPARED WITH ECG OF 09-JAN-2018 22:00, COMPARED TO EKG NO SIGNIFICANT CHANGE IS FOUND Confirmed by CARRIE MONTALVO MD ([id number]) on 01/12/2018 9:05:53 AM Referred By: Confirmed By:CARRIE MONTALVO MD
[2018-01-12] MEDS ORDERED: LIDOCAINE VISCOUS 2% ORAL/TOP 20 ML UNIT-DOSE CUP MM PRN (10:42)
[2018-01-12] MEDS: NICOTINE 21 MG/24 HOURS TOPICAL PATCH TD SCH (10:43)
[2018-01-12] MEDS: BACITRACIN 0.9 GM PACKET TP SCH ×2 (10:43→22:24)
[2018-01-12] MEDS: PRENATAL VITAMINS W/ FOLIC ACID TABLET (FP) PO SCH (10:44)
[2018-01-12] MEDS: IBUPROFEN 400 MG TABLET (FP) PO PRN (10:45)
--- NOTE | 2018-01-12 11:33 | PN ---
BHS Progress Note (SOAP) Subjective: feeling better no tremor less sweat sleep better at night left lower tooth fell out when brushing the teeth no bleeding noted no swell able to chew regular food with mild pain Objective: 01/12/18 11:30 Vital Signs Temperature 98.2 F 01/12/18 10:00 Pulse Rate 76 01/12/18 10:00 Respiratory Rate 20 01/12/18 10:00 Blood Pressure 114/64 01/12/18 10:00 O2 Sat by Pulse Oximetry (%) Laboratory Last Values WBC 8.4 K/mm3 (4.0-10.0) D 01/10/18 07:55 RBC 3.35 M/mm3 (3.60-5.2) L 01/10/18 07:55 Hgb 10.3 GM/dL (10.7-15.3) L 01/10/18 07:55 Hct 31.2 % (32.4-45.2) L 01/10/18 07:55 MCV 93.1 fl (80-96) 01/10/18 07:55 MCH 30.8 pg (25.7-33.7) 01/10/18 07:55 MCHC 33.1 g/dl (32.0-36.0) 01/10/18 07:55 RDW 15.8 % (11.6-15.6) H 01/10/18 07:55 Plt Count 270 K/MM3 (134-434) 01/10/18 07:55 MPV 8.0 fl (7.5-11.1) 01/10/18 07:55 Sodium 142 mmol/L (136-145) 01/10/18 07:55 Potassium 3.8 mmol/L (3.5-5.1) 01/10/18 07:55 Chloride 106 mmol/L (98-107) 01/10/18 07:55 Carbon Dioxide 31 mmol/L (21-32) 01/10/18 07:55 Anion Gap 5 (8-16) L 01/10/18 07:55 BUN 10 mg/dL (7-18) 01/10/18 07:55 Creatinine 0.6 mg/dL (0.55-1.02) 01/10/18 07:55 Creat Clearance w eGFR > 60 (>60) 01/10/18 07:55 Random Glucose 88 mg/dL (74-106) 01/10/18 07:55 Calcium 8.1 mg/dL (8.5-10.1) L 01/10/18 07:55 Total Bilirubin 0.3 mg/dL (0.2-1.0) D 01/10/18 07:55 AST 21 U/L (15-37) 01/10/18 07:55 ALT 21 U/L (12-78) 01/10/18 07:55 Alkaline Phosphatase 64 U/L (45-117) 01/10/18 07:55 Total Protein 6.7 g/dl (6.4-8.2) 01/10/18 07:55 Albumin 2.9 g/dl (3.4-5.0) L 01/10/18 07:55 RPR Titer Nonreactive (NONREACTIVE) 01/10/18 08:10 Hep C Ab Diagnostic 0.1 s/co ratio (0.0-0.9) 01/10/18 07:55 Liver Fibrosis Interp (.) 01/10/18 07:55 HIV 1&2 Antibody Screen Negative 01/10/18 07:55 HIV P24 Antigen Negative 01/10/18 07:55 lab noted Assessment: 01/12/18 11:30 withdrawal sx 01/12/18 11:32 oral hygiene Plan: continue detox lidocaine oral solution before each meal strong recommend oral hygiene and follow up with dentist
[2018-01-12] MEDS: chlordiazePOXIDE HCL 10 MG CAPSULE PO SCH (22:24)
[2018-01-12] MEDS: THIAMINE HCL 100 MG TABLET (FP) PO SCH (22:24)
[2018-01-13] MEDS ORDERED: METHADONE HCL 40 MG DISPERSABLE TABLET ONE (05:14)
[2018-01-13] MEDS ORDERED: METHADONE HCL 10 MG TABLET (FOR DETOX USE ONLY) ONE (05:15)
[2018-01-13] MEDS: METHADONE 40 MG, METHADONE (DETOX) 20 MG PO SCH (05:48)
[2018-01-13] MEDS: GABAPENTIN 300 MG CAPSULE (FP) PO SCH (05:49)
[2018-01-13] MEDS: chlordiazePOXIDE HCL 10 MG CAPSULE PO SCH ×2 (05:49→10:23)
--- NOTE | 2018-01-13 08:59 | DS ---
[facility] Detox Discharge Summary Admission Date: 01/09/18 Discharge Date: 01/13/18 - History Present History: Alcohol Dependence Additional Comments: 47 years old female admitted 01/09/18 for alcohol withdrawal sx completed alcohol detox regimen tolerated well denies alcohol withdrawal sx alert oriented x 3 no acute distress aftercare [facility] brief motivational intervention on relapse prevention and sobriety - Physical Exam Results Vital Signs: Vital Signs Temperature 98.1 F 01/13/18 06:00 Pulse Rate 75 01/13/18 06:00 Respiratory Rate 18 01/13/18 06:00 Blood Pressure 119/81 01/13/18 06:00 O2 Sat by Pulse Oximetry (%) Pertinent Admission Physical Exam Findings: alcohol withdrawal sx Vital Signs Temperature 98.1 F 01/13/18 06:00 Pulse Rate 75 01/13/18 06:00 Respiratory Rate 18 01/13/18 06:00 Blood Pressure 119/81 01/13/18 06:00 O2 Sat by Pulse Oximetry (%) Laboratory Last Values WBC 8.4 K/mm3 (4.0-10.0) D 01/10/18 07:55 RBC 3.35 M/mm3 (3.60-5.2) L 01/10/18 07:55 Hgb 10.3 GM/dL (10.7-15.3) L 01/10/18 07:55 Hct 31.2 % (32.4-45.2) L 01/10/18 07:55 MCV 93.1 fl (80-96) 01/10/18 07:55 MCH 30.8 pg (25.7-33.7) 01/10/18 07:55 MCHC 33.1 g/dl (32.0-36.0) 01/10/18 07:55 RDW 15.8 % (11.6-15.6) H 01/10/18 07:55 Plt Count 270 K/MM3 (134-434) 01/10/18 07:55 MPV 8.0 fl (7.5-11.1) 01/10/18 07:55 Sodium 142 mmol/L (136-145) 01/10/18 07:55 Potassium 3.8 mmol/L (3.5-5.1) 01/10/18 07:55 Chloride 106 mmol/L (98-107) 01/10/18 07:55 Carbon Dioxide 31 mmol/L (21-32) 01/10/18 07:55 Anion Gap 5 (8-16) L 01/10/18 07:55 BUN 10 mg/dL (7-18) 01/10/18 07:55 Creatinine 0.6 mg/dL (0.55-1.02) 01/10/18 07:55 Creat Clearance w eGFR > 60 (>60) 01/10/18 07:55 Random Glucose 88 mg/dL (74-106) 01/10/18 07:55 Calcium 8.1 mg/dL (8.5-10.1) L 01/10/18 07:55 Total Bilirubin 0.3 mg/dL (0.2-1.0) D 01/10/18 07:55 AST 21 U/L (15-37) 01/10/18 07:55 ALT 21 U/L (12-78) 01/10/18 07:55 Alkaline Phosphatase 64 U/L (45-117) 01/10/18 07:55 Total Protein 6.7 g/dl (6.4-8.2) 01/10/18 07:55 Albumin 2.9 g/dl (3.4-5.0) L 01/10/18 07:55 RPR Titer Nonreactive (NONREACTIVE) 01/10/18 08:10 Hep C Ab Diagnostic 0.1 s/co ratio (0.0-0.9) 01/10/18 07:55 Liver Fibrosis Interp (.) 01/10/18 07:55 HIV 1&2 Antibody Screen Negative 01/10/18 07:55 HIV P24 Antigen Negative 01/10/18 07:55 lab noted - Treatment Hospital Course: Detox Protocol Followed, Detoxed Safely, Responded well, Discharged Condition Good, Rehab Referral Accepted Patient has Accepted a Rehab Referral to: [facility] - Medication Discharge Medications: Ambulatory Orders Albuterol Sulfate Inhaler - [Ventolin HFA Inhaler -] 2 puff IH Q4H PRN #1 inhaler 01/12/18 Gabapentin [Neurontin] 300 mg PO TID #90 capsule 01/12/18 Methadone [Dolophine -] 60 mg PO DAILY 01/13/18 - Diagnosis (1) Neuropathy Current Visit: Yes Status: Chronic (2) Alcohol dependence with uncomplicated withdrawal Current Visit: Yes Status: Acute (3) Nicotine dependence Current Visit: Yes Status: Acute Qualifiers: Nicotine product type: cigarettes Substance use status: in withdrawal Qualified Code(s): F17.213 - Nicotine dependence, cigarettes, with withdrawal (4) Weight decrease Current Visit: Yes Status: Acute (5) Asthma Current Visit: Yes Status: Chronic Qualifiers: Asthma severity: mild Asthma persistence: intermittent Asthma complication type: uncomplicated Qualified Code(s): J45.20 - Mild intermittent asthma, uncomplicated (6) Methadone maintenance therapy patient Current Visit: Yes Status: Chronic (7) Use of cane as ambulatory aid Current Visit: Yes Status: Chronic - AMA Did Patient Leave Against Medical Advice: No
[2018-01-13 09:55] VITALS: BP 149/98; PULSE 88; TEMP 97.9
[2018-01-13] MEDS: NICOTINE 21 MG/24 HOURS TOPICAL PATCH TD SCH (10:22)
[2018-01-13] MEDS: PRENATAL VITAMINS W/ FOLIC ACID TABLET (FP) PO SCH (10:22)
[2018-01-13] MEDS: BACITRACIN 0.9 GM PACKET TP SCH (10:23)
[2018-01-13 14:32] LABS: URINE APPEARANCE CLEAR; URINE BILIRUBIN NEGATIVE (<2.0 mg/dL); URINE BLOOD NEGATIVE (NEGATIVE); URINE COLOR STRAW; URINE GLUCOSE (UA) NEGATIVE (NEGATIVE); URINE KETONE NEGATIVE (NEGATIVE); URINE LEUK ESTERASE NEGATIVE (NEGATIVE); URINE NITRITE NEGATIVE (NEGATIVE); URINE PROTEIN NEGATIVE (NEGATIVE); URINE UROBILINOGEN NEGATIVE mg/dL (0.2-1.0)
== END 2018-01-13 12:28 | disposition home or self-care (01) | DRG 773 ==
LOC: YASAS 14:23 → Y6N 18:05
PROVIDERS: ADMIT Surgery; ATTEND Surgery
PROC: HZ2ZZZZ Detoxification Services for Substance Abuse Treatment (ICD-10-PCS; principal; 2018-01-09)
DX: F10.230 Alcohol dependence with withdrawal, uncomplicated (principal); F11.20 Opioid dependence, uncomplicated; F14.20 Cocaine dependence, uncomplicated; F17.213 Nicotine dependence, cigarettes, with withdrawal; J45.20 Mild intermittent asthma, uncomplicated; G62.9 Polyneuropathy, unspecified; M41.9 Scoliosis, unspecified; D50.9 Iron deficiency anemia, unspecified; R00.0 Tachycardia, unspecified; R26.2 Difficulty in walking, not elsewhere classified; Z99.89 Dependence on other enabling machines and devices; Z91.14 Patient's other noncompliance with medication regimen; Z86.69 Personal history of other diseases of the nervous system and sense organs; Z87.898 Personal history of other specified conditions; Z91.013 Allergy to seafood; Z91.5 Personal history of self-harm
CPT/HCPCS: 36415; 80053; 81003; 85027; 86593; 87389; 93005; 93010

== ENCOUNTER 2018-07-02 18:19 | Inpatient (IN) | payer OTHER ==
[2018-07-02 18:55] VITALS: BMI 20.5
--- NOTE | 2018-07-02 20:07 | HP ---
"CIWA Score Nausea/Vomitin-No Nausea/No Vomiting Muscle Tremors: 4-Moderate,w/Arms Extend Anxiety: 3 Agitation: 4-Moderately Restless Paroxysmal Sweats: 3 Orientation: 0-Oriented Tacttile Disturbances: 0-None Auditory Disturbances: 0-None (Has a hx of Hallucinations - last a month ago. The voices tell me to hurt myself) Visual Disturbances: 0-None Headache: 0-None Present CIWA-Ar Total Score: 14 - Admission Criteria OAS Guidelines: Admission for Medically Managed Detox: Requires at least one of the followin. CIWA greater than 12 2. Seizures within the past 24 hours 3. Delirium tremens within the past 24 hours 4. Hallucinations within the past 24 hours 5. Acute intervention needed for co occurring medical disorder 6. Acute intervention needed for co occurring psychiatric disorder 7. Severe withdrawal that cannot be handled at a lower level of care (continued vomiting, continued diarrhea, abnormal vital signs) requiring intravenous medication and/or fluids 8. Patient presents the following: CIWA greater than 12 Admission Criteria Met: Admission criteria met Admission ROS [facility] Chief Complaint: Here for alcohol withdrawal Allergies/Adverse Reactions: Allergies Allergy/AdvReac Type Severity Reaction Status Date / Time Iodine and Iodide Containing Allergy Severe Swelling Verified 07/02/18 19:33 Produc shellfish derived Allergy Severe Swelling Verified 07/02/18 19:33 History of Present Illness: Here for alcohol detox Alcohol use since age 12. Nicotine use since age 15. Cocaine use since age 15. Heroin use since age 15. States MMTP 1 year ago. On Acasia MMTP. States current dose is 60 mg. States LDM 07/02/18. IVDU - Denies sharing needles/ works. Denies seizures or blackouts. States Hx 3 overdoses Hx Scoliosis w/intermittent back pain, asthma, States past hx Hallucinations last about 1 month ago. States voices say to harm self. Not hearing voices now. Denies thoughts of harming self or others. No MH provider. Search Terms: Ana Laura Ortega, 1970 Search Date: 07/02/2018 08:04:41 PM The Drug Utilization Report below displays all of the controlled substance prescriptions, if any, that your patient has filled in the last twelve months. The information displayed on this report is compiled from pharmacy submissions to the Department, and accurately reflects the information as submitted by the pharmacies. This report was requested by: Yoselin Mike | Reference #: [id number] There are no results for the search terms that you entered. Exam Limitations: No Limitations - Ebola screening Have you traveled outside of the country in the last 21 days: No Have you had contact with anyone from an Ebola affected area: No Have you been sick,other than usual withdrawal symptoms: No Do you have a fever: No - Review of Systems Constitutional: Diaphoresis, Changes in sleep (Difficulty falling asleep) EENT: reports: Blurred Vision, Dental Problems (Dentures), Other (Jaw problems - causing trouble chewing) Respiratory: reports: No Symptoms reported Cardiac: reports: No Symptoms Reported GI: reports: Constipated (Resolves w/ use of colace), Nausea : reports: No Symptoms Reported Musculoskeletal: reports: Back Pain (Low back pain - chronic - has scoliosis - tends to tilt and uses cane for support) Integumentary: reports: Bruising (From injection drug use) Neuro: reports: Tremors Endocrine: reports: No Symptoms Reported Hematology: reports: Anemia (Iron deficiency - not on meds; States potassium is also low.) Psychiatric: reports: Judgement Intact, Orientated x3, Agitated, Anxious, Depressed (Denies thoughts of harming self or others) Patient History - Patient Medical History Hx Anemia: Yes (Iron-Deficiency type in past, No meds.) Hx Asthma: Yes (Uses MDI PRN.) Hx Chronic Obstructive Pulmonary Disease (COPD): No Hx Cancer: No Hx Cardiac Disorders: No Hx Congestive Heart Failure: No Hx Hypertension: No Hx Hypercholesterolemia: No Hx Pacemaker: No HX Cerebrovascular Accident: No Hx Seizures: Yes (Last one approx. 10 years ago, likely due to ETOH) Hx Dementia: No Hx Diabetes: No Hx Gastrointestinal Disorders: No Hx Liver Disease: No Hx Genitourinary Disorders: No Hx Sexually Transmitted Disorders: No Hx Renal Disease (ESRD): No Hx Thyroid Disease: No Hx Human Immunodeficiency Virus (HIV): No (Last Tested: 09/2017: NEGATIVE.) Hx Hepatitis C: No (Last Tested: 09/2017: NEGATIVE.) Hx Depression: Yes (Meds. in past, none curently.) Hx Suicide Attempt: Yes (OD pills, Cut wrists, approx. 15 years ago. PATIENT DENIES CURRENT SI / HI.) Hx Bipolar Disorder: Yes (No current meds.) Hx Schizophrenia: Yes (No current meds.) - Patient Surgical History Past Surgical History: Yes Hx Neurologic Surgery: No Hx Cataract Extraction: No Hx Cardiac Surgery: No Hx Lung Surgery: No Hx Breast Surgery: No Hx Breast Biopsy: No Hx Abdominal Surgery: No Hx Appendectomy: No Hx Cholecystectomy: No Hx Genitourinary Surgery: No Hx Section: Yes (x1 (2000).) Hx Orthopedic Surgery: No Hx Hysterectomy: No Other Surgical History: DENIES. Anesthesia Reaction: Yes (Tendas to Wake Prematurely.) - PPD History Previous Implant?: Yes Documented Results: Negative w/proof Date: 02/23/17 Results: 0 mm PPD to be Administered?: Yes - Reproductive History Patient is a Female of Child Bearing Age (11 -55 yrs old): Yes Last Menstrual Period: 06/24/18 Patient : No - Smoking Cessation Smoking history: Current every day smoker Have you smoked in the past 12 months: Yes Aproximately how many cigarettes per day: 20 Cigars Per Day: 0 Hx Chewing Tobacco Use: No Initiated information on smoking cessation: Yes 'Breaking Loose' booklet given: 07/02/18 - Substance & Tx. History Hx Alcohol Use: Yes Hx Substance Use: Yes Substance Use Type: Alcohol, Cocaine, Heroin Hx Substance Use Treatment: Yes (detox, rehab, currently on a MMTP) - Substances Abused Alcohol Route: Oral Frequency: Daily Amount used: LIQUOR- 1 PINT, BEER- 2 SIX PACK Age of first use: 12 Date of Last Use: 07/02/18 Cocaine Route: Injection Frequency: Daily Amount used: 10 Age of first use: 15 Date of Last Use: 07/01/18 Family Disease History - Family Disease History Family Disease History: Other: Father ( HIV (age unknown)), Mother ( LOST CONTACT) Admission Physical Exam BHS - Vital Signs Vital Signs: Vital Signs - 24 hr 07/02/18 18:53 Temperature 97.9 F Pulse Rate 76 Respiratory 18 Rate Blood Pressure 110/70 - Physical General Appearance: Yes: Mild Distress, Tremorous, Irritable, Sweating, Anxious HEENTM: Yes: EOMI, Hearing grossly Normal, Normal Voice, PARVIN Respiratory: Yes: Chest Non-Tender, Lungs Clear, Normal Breath Sounds Neck: Yes: No masses,lesions,Nodules, Supple Breast: Yes: Breast Exam Deferred Cardiology: Yes: Regular Rhythm, Regular Rate, S1, S2 Abdominal: Yes: Non Tender, Flat, Soft, Increased Bowel Sounds Genitourinary: Yes: Within Normal Limits Back: Yes: Decreased Range of Motion (r/t scoliosis) Musculoskeletal: Yes: Gait Steady (w/ use of cane), Other (Scoliosis) Extremities: Yes: Normal Capillary Refill, Normal Inspection, Normal Range of Motion, Tremors (of hands when arems elevated) Neurological: Yes: shoe polisher II-XII NML intact, Fully Oriented, Alert, Motor Strength 5/5, Normal Response Integumentary: Yes: Normal Color, Dry, Warm, Track Espinoza (Old and new track espinoza on arms and legs. No areas w/ increased warmth.), Other (Superficial scratch (R) wrist) Lymphatic: Yes: Within Normal Limits - Diagnostic (1) Alcohol dependence with uncomplicated withdrawal Current Visit: Yes Status: Acute (2) Cocaine dependence, uncomplicated Current Visit: Yes Status: Chronic (3) Nicotine dependence Current Visit: Yes Status: Acute Qualifiers: Nicotine product type: cigarettes Substance use status: in withdrawal Qualified Code(s): F17.213 - Nicotine dependence, cigarettes, with withdrawal (4) Opioid dependence on agonist therapy Current Visit: Yes Status: Chronic (5) Asthma Current Visit: Yes Status: Chronic Qualifiers: Asthma severity: mild Asthma persistence: intermittent Asthma complication type: uncomplicated Qualified Code(s): J45.20 - Mild intermittent asthma, uncomplicated (6) Scoliosis Current Visit: Yes Status: Chronic Qualifiers: Scoliosis type: unspecified scoliosis Spinal region: thoracolumbar Qualified Code(s): M41.9 - Scoliosis, unspecified (7) Use of cane as ambulatory aid Current Visit: Yes Status: Chronic (8) Tinea pedis Current Visit: Yes Status: Chronic Qualifiers: Laterality: bilateral Qualified Code(s): B35.3 - Tinea pedis Cleared for Admission [facility] - Detox or Rehab [facility] Level of Care: Medically Managed Detox Regimen/Protocol: Librium [facility] Breath Alcohol Content Breath Alcohol Content: 0 Urine Pregancy Test - Result Urine Test Results: Negative- NO Line Present Urine Drug Screen - Results Drug Screen Negative: No Urine Drug Screen Results: ARMIN-Cocaine, OPI-Opiates, MTD-Methadone"
[2018-07-02] MEDS ORDERED: MAG HYDROX/AL HYDROX/SIMETH 30 ML UNIT-DOSE CUP PO PRN (20:34)
[2018-07-02] MEDS ORDERED: LOPERAMIDE HCL 2 MG CAPSULE PO PRN (20:34)
[2018-07-02] MEDS ORDERED: MENTHOL/PHENOL 1 EACH UD MM PRN (20:34)
[2018-07-02] MEDS ORDERED: MAGNESIUM HYDROX 2400MG/30ML ORAL SUSPENSION 30 ML CUP PO PRN (20:34)
[2018-07-02] MEDS ORDERED: MAGNESIUM CITRATE 300 ML BOTTLE PO PRN (20:34)
[2018-07-02] MEDS ORDERED: ACETAMINOPHEN 325 MG TABLET (FP) PO PRN (20:34)
[2018-07-02] MEDS ORDERED: chlordiazePOXIDE HCL 25 MG CAPSULE PO PRN (20:34)
[2018-07-02] MEDS ORDERED: NICOTINE POLACRILEX 2 MG GUM BC PRN (20:34)
[2018-07-02] MEDS ORDERED: ALBUTEROL SO4 0.083% IH SOL 2.5 MG/3 ML VIAL.NEB. NEB PRN (20:39)
[2018-07-02] MEDS ORDERED: MELATONIN 5 MG TABLETS PO PRN (22:00)
[2018-07-02] MEDS: chlordiazePOXIDE HCL 25 MG CAPSULE PO SCH (22:39)
[2018-07-02] MEDS: THIAMINE HCL 100 MG TABLET (FP) PO SCH (22:40)
[2018-07-02] MEDS: TOLNAFTATE 1% CREAM 15 GM TUBE TP SCH (22:40)
[2018-07-02] MEDS: GABAPENTIN 300 MG CAPSULE (FP) PO SCH (22:40)
[2018-07-03] MEDS ORDERED: METHADONE HCL 40 MG DISPERSABLE TABLET ONE (04:21)
[2018-07-03] MEDS ORDERED: METHADONE HCL 10 MG TABLET ONE (04:21)
[2018-07-03] MEDS: GABAPENTIN 300 MG CAPSULE (FP) PO SCH ×3 (05:37→22:36)
[2018-07-03] MEDS: chlordiazePOXIDE HCL 25 MG CAPSULE PO SCH ×3 (05:37→17:54)
[2018-07-03] MEDS: METHADONE 40 MG, METHADONE 20 MG PO SCH (05:37)
[2018-07-03] MEDS ORDERED: METHADONE HCL 40 MG DISPERSABLE TABLET PO SCH (06:00)
[2018-07-03] MEDS: NICOTINE 21 MG/24 HOURS TOPICAL PATCH TD SCH (10:20)
[2018-07-03] MEDS: PRENATAL VITAMINS W/ FOLIC ACID TABLET (FP) PO SCH (10:20)
[2018-07-03] MEDS: BACITRACIN 0.9 GM PACKET TP SCH (10:20)
[2018-07-03 10:37] LABS: HEMATOCRIT 32.9 % (32.4-45.2); HEMOGLOBIN 10.3 GM/dL (10.7-15.3); MCH 29.8 pg (25.7-33.7); MCHC 31.4 g/dl (32.0-36.0); MEAN PLT VOLUME 7.9 fl (7.5-11.1); PLATELET COUNT 278 K/MM3 (134-434); RBC 3.47 M/mm3 (3.60-5.2); RDW 14.7 % (11.6-15.6); WHITE BLOOD COUNT 3.6 K/mm3 (4.0-10.0)
[2018-07-03] MEDS: IBUPROFEN 400 MG TABLET (FP) PO PRN ×2 (10:46→22:36)
[2018-07-03] MEDS: LIDOCAINE 5% TOPICAL PATCH TP SCH (10:47)
[2018-07-03 10:59] LABS: ALK PHOS 75 U/L (45-117); ANION GAP 6 MMOL/L (8-16); BILIRUBIN,TOTAL 0.2 mg/dL (0.2-1); BLOOD UREA NITROGEN 12 mg/dL (7-18); CALCIUM 8.3 mg/dL (8.5-10.1); CHLORIDE 108 mmol/L (98-107); CO2 29 mmol/L (21-32); CREATININE 0.8 mg/dL (0.55-1.3); GLUCOSE,RANDOM 85 mg/dL (74-106); SGOT/AST 32 U/L (15-37); SGPT/ALT 30 U/L (13-61); SODIUM 143 mmol/L (136-145); TOT PROT 6.9 g/dl (6.4-8.2)
[2018-07-03] MEDS: TOLNAFTATE 1% CREAM 15 GM TUBE TP SCH ×2 (11:16→22:36)
--- NOTE | 2018-07-03 14:19 | PN ---
S CIWA - CIWA Score Nausea/Vomitin-No Nausea/No Vomiting Muscle Tremors: 2 Anxiety: 3 Agitation: 3 Paroxysmal Sweats: No Perspiration Orientation: 0-Oriented Tacttile Disturbances: 0-None Auditory Disturbances: 0-None Visual Disturbances: 0-None Headache: 0-None Present CIWA-Ar Total Score: 8 BHS Progress Note (SOAP) Subjective: PATIENT C/O ANXIETY,RESTLESSNESS, LOW BACK PAIN AND SHAKES. Objective: 07/03/18 14:16 Vital Signs Temperature 98.1 F 07/03/18 14:08 Pulse Rate 90 07/03/18 14:08 Respiratory Rate 18 07/03/18 14:08 Blood Pressure 112/55 L 07/03/18 14:08 O2 Sat by Pulse Oximetry (%) Laboratory Tests 07/03/18 07/03/18 07/03/18 07:00 07:00 07:00 WBC 3.6 L RBC 3.47 L Hgb 10.3 L Hct 32.9 MCV 95.0 MCH 29.8 MCHC 31.4 L RDW 14.7 Plt Count 278 MPV 7.9 Sodium 143 Potassium 4.0 Chloride 108 H Carbon Dioxide 29 Anion Gap 6 L BUN 12 Creatinine 0.8 Creat Clearance w eGFR > 60 Random Glucose 85 Calcium 8.3 L Total Bilirubin 0.2 AST 32 ALT 30 Alkaline Phosphatase 75 Total Protein 6.9 Albumin 3.0 L HIV 1&2 Antibody Screen Negative HIV P24 Antigen Negative PE: ALERT AND ORIENTED X 3 SKIN WARM AND DRY CAR S1S2 RESP CTA BL EXT FULL ROM, +TREMORS AMB AD ANABEL PACING IN ROOM Assessment: 07/03/18 14:17 WITHDRAWAL SX Plan: CONTINUE DETOX ENCOURAGE ORAL FLUIDS LIDOCAINE PATCH TO LOWER BACK AREA CONTINUE TO MONITOR CLINICALLY
[2018-07-03 21:31] LABS: URINE APPEARANCE SLCLOUDY; URINE BILIRUBIN NEGATIVE (<2.0 mg/dL); URINE COLOR DKYELLOW; URINE GLUCOSE (UA) NEGATIVE (NEGATIVE); URINE KETONE TRACE (NEGATIVE); URINE LEUK ESTERASE TRACE (NEGATIVE); URINE NITRITE NEGATIVE (NEGATIVE); URINE PROTEIN 1+ (NEGATIVE)
[2018-07-03 21:36] LABS: EPI CELLS RARE /HPF (FEW); URINE HYALINE CAST 6 /lpf; URINE MUCUS FEW
[2018-07-03] MEDS: THIAMINE HCL 100 MG TABLET (FP) PO SCH (22:35)
[2018-07-03] MEDS: chlordiazePOXIDE 5 MG CAPSULE PO SCH (22:35)
[2018-07-03] MEDS: LIDOCAINE PATCH REMOVAL MC SCH (22:45)
[2018-07-04] MEDS ORDERED: METHADONE HCL 40 MG DISPERSABLE TABLET ONE (04:57)
[2018-07-04] MEDS ORDERED: METHADONE HCL 10 MG TABLET ONE (04:57)
[2018-07-04] MEDS: METHADONE 40 MG, METHADONE 20 MG PO SCH (05:24)
[2018-07-04] MEDS: chlordiazePOXIDE 5 MG CAPSULE PO SCH ×4 (05:24→22:30)
[2018-07-04] MEDS: GABAPENTIN 300 MG CAPSULE (FP) PO SCH ×3 (05:24→22:30)
[2018-07-04] MEDS: LIDOCAINE 5% TOPICAL PATCH TP SCH (10:40)
[2018-07-04] MEDS: NICOTINE 21 MG/24 HOURS TOPICAL PATCH TD SCH (10:40)
[2018-07-04] MEDS: PRENATAL VITAMINS W/ FOLIC ACID TABLET (FP) PO SCH (10:40)
[2018-07-04] MEDS: TOLNAFTATE 1% CREAM 15 GM TUBE TP SCH ×2 (10:41→22:29)
[2018-07-04] MEDS: BACITRACIN 0.9 GM PACKET TP SCH (10:45)
--- NOTE | 2018-07-04 15:18 | PN ---
S CIWA - CIWA Score Nausea/Vomitin Muscle Tremors: 3 Anxiety: 2 Agitation: 1-Slight > Activity Paroxysmal Sweats: 3 Orientation: 0-Oriented Tacttile Disturbances: 0-None Auditory Disturbances: 0-None Visual Disturbances: 0-None Headache: 0-None Present CIWA-Ar Total Score: 11 S Progress Note (SOAP) Subjective: shakes sweats Objective: 07/04/18 15:15 ambulating steadily on unit Not in distress Vital Signs Temperature 98.2 F 07/04/18 14:44 Pulse Rate 79 07/04/18 14:44 Respiratory Rate 18 07/04/18 14:44 Blood Pressure 99/67 07/04/18 14:44 O2 Sat by Pulse Oximetry (%) Laboratory Last Values WBC 3.6 K/mm3 (4.0-10.0) L 07/03/18 07:00 RBC 3.47 M/mm3 (3.60-5.2) L 07/03/18 07:00 Hgb 10.3 GM/dL (10.7-15.3) L 07/03/18 07:00 Hct 32.9 % (32.4-45.2) 07/03/18 07:00 MCV 95.0 fl (80-96) 07/03/18 07:00 MCH 29.8 pg (25.7-33.7) 07/03/18 07:00 MCHC 31.4 g/dl (32.0-36.0) L 07/03/18 07:00 RDW 14.7 % (11.6-15.6) 07/03/18 07:00 Plt Count 278 K/MM3 (134-434) 07/03/18 07:00 MPV 7.9 fl (7.5-11.1) 07/03/18 07:00 Sodium 143 mmol/L (136-145) 07/03/18 07:00 Potassium 4.0 mmol/L (3.5-5.1) 07/03/18 07:00 Chloride 108 mmol/L (98-107) H 07/03/18 07:00 Carbon Dioxide 29 mmol/L (21-32) 07/03/18 07:00 Anion Gap 6 MMOL/L (8-16) L 07/03/18 07:00 BUN 12 mg/dL (7-18) 07/03/18 07:00 Creatinine 0.8 mg/dL (0.55-1.3) 07/03/18 07:00 Creat Clearance w eGFR > 60 (>60) 07/03/18 07:00 Random Glucose 85 mg/dL (74-106) 07/03/18 07:00 Calcium 8.3 mg/dL (8.5-10.1) L 07/03/18 07:00 Total Bilirubin 0.2 mg/dL (0.2-1) 07/03/18 07:00 AST 32 U/L (15-37) 07/03/18 07:00 ALT 30 U/L (13-61) 07/03/18 07:00 Alkaline Phosphatase 75 U/L (45-117) 07/03/18 07:00 Total Protein 6.9 g/dl (6.4-8.2) 07/03/18 07:00 Albumin 3.0 g/dl (3.4-5.0) L 07/03/18 07:00 Urine Color Dkyellow 07/02/18 23:20 Urine Appearance Slcloudy 07/02/18 23:20 Urine pH 5.0 (5.0-8.0) D 07/02/18 23:20 Ur Specific [place] 1.025 (1.010-1.035) 07/02/18 23:20 Urine Protein 1+ (NEGATIVE) H 07/02/18 23:20 Urine Glucose (UA) Negative (NEGATIVE) 07/02/18 23:20 Urine Ketones Trace (NEGATIVE) H 07/02/18 23:20 Urine Blood Negative (NEGATIVE) 07/02/18 23:20 Urine Nitrite Negative (NEGATIVE) 07/02/18 23:20 Urine Bilirubin Negative (<2.0 mg/dL) 07/02/18 23:20 Urine Urobilinogen 2.0 mg/dL (0.2-1.0) H 07/02/18 23:20 Ur Leukocyte Esterase Trace (NEGATIVE) 07/02/18 23:20 Urine WBC (Auto) 5 /hpf (3-5) 07/02/18 23:20 Urine RBC (Auto) 1 /hpf (0-3) 07/02/18 23:20 Ur Epithelial Cells Rare /HPF (FEW) 07/02/18 23:20 Hyaline Casts 6 /lpf 07/02/18 23:20 Urine Mucus Few 07/02/18 23:20 RPR Titer Nonreactive (NONREACTIVE) 07/03/18 07:00 HIV 1&2 Antibody Screen Negative 07/03/18 07:00 HIV P24 Antigen Negative 07/03/18 07:00 labs noted Assessment: 07/04/18 15:17 withdrawal sx abnormal urine results Plan: continue detox increase hydration repeat UA in a.m
[2018-07-04] MEDS ORDERED: chlordiazePOXIDE HCL 10 MG CAPSULE PO PRN (20:24)
[2018-07-04] MEDS: IBUPROFEN 400 MG TABLET (FP) PO PRN (20:58)
[2018-07-04] MEDS: LIDOCAINE PATCH REMOVAL MC SCH (22:29)
[2018-07-04] MEDS: THIAMINE HCL 100 MG TABLET (FP) PO SCH (22:30)
[2018-07-05] MEDS ORDERED: METHADONE HCL 40 MG DISPERSABLE TABLET ONE (04:12)
[2018-07-05] MEDS ORDERED: METHADONE HCL 10 MG TABLET ONE (04:12)
[2018-07-05] MEDS: METHADONE 40 MG, METHADONE 20 MG PO SCH (05:48)
[2018-07-05] MEDS: GABAPENTIN 300 MG CAPSULE (FP) PO SCH ×3 (06:05→21:48)
[2018-07-05] MEDS: chlordiazePOXIDE 5 MG CAPSULE PO SCH ×4 (06:06→22:23)
[2018-07-05] MEDS: IBUPROFEN 400 MG TABLET (FP) PO PRN ×2 (10:27→21:45)
[2018-07-05] MEDS: NICOTINE 21 MG/24 HOURS TOPICAL PATCH TD SCH (10:28)
[2018-07-05] MEDS: PRENATAL VITAMINS W/ FOLIC ACID TABLET (FP) PO SCH (10:28)
[2018-07-05] MEDS: TOLNAFTATE 1% CREAM 15 GM TUBE TP SCH ×2 (10:30→21:49)
[2018-07-05] MEDS: BACITRACIN 0.9 GM PACKET TP SCH (10:30)
[2018-07-05] MEDS: LIDOCAINE 5% TOPICAL PATCH TP SCH (10:32)
--- NOTE | 2018-07-05 10:42 | PN ---
[facility] Progress Note (SOAP) Subjective: feeling better no tremor no GI distress less sweat sleep better at night Objective: 07/05/18 10:43 Vital Signs Temperature 97.9 F 07/05/18 10:00 Pulse Rate 71 07/05/18 10:00 Respiratory Rate 18 07/05/18 10:00 Blood Pressure 113/85 07/05/18 10:00 O2 Sat by Pulse Oximetry (%) Laboratory Last Values WBC 3.6 K/mm3 (4.0-10.0) L 07/03/18 07:00 RBC 3.47 M/mm3 (3.60-5.2) L 07/03/18 07:00 Hgb 10.3 GM/dL (10.7-15.3) L 07/03/18 07:00 Hct 32.9 % (32.4-45.2) 07/03/18 07:00 MCV 95.0 fl (80-96) 07/03/18 07:00 MCH 29.8 pg (25.7-33.7) 07/03/18 07:00 MCHC 31.4 g/dl (32.0-36.0) L 07/03/18 07:00 RDW 14.7 % (11.6-15.6) 07/03/18 07:00 Plt Count 278 K/MM3 (134-434) 07/03/18 07:00 MPV 7.9 fl (7.5-11.1) 07/03/18 07:00 Sodium 143 mmol/L (136-145) 07/03/18 07:00 Potassium 4.0 mmol/L (3.5-5.1) 07/03/18 07:00 Chloride 108 mmol/L (98-107) H 07/03/18 07:00 Carbon Dioxide 29 mmol/L (21-32) 07/03/18 07:00 Anion Gap 6 MMOL/L (8-16) L 07/03/18 07:00 BUN 12 mg/dL (7-18) 07/03/18 07:00 Creatinine 0.8 mg/dL (0.55-1.3) 07/03/18 07:00 Creat Clearance w eGFR > 60 (>60) 07/03/18 07:00 Random Glucose 85 mg/dL (74-106) 07/03/18 07:00 Calcium 8.3 mg/dL (8.5-10.1) L 07/03/18 07:00 Total Bilirubin 0.2 mg/dL (0.2-1) 07/03/18 07:00 AST 32 U/L (15-37) 07/03/18 07:00 ALT 30 U/L (13-61) 07/03/18 07:00 Alkaline Phosphatase 75 U/L (45-117) 07/03/18 07:00 Total Protein 6.9 g/dl (6.4-8.2) 07/03/18 07:00 Albumin 3.0 g/dl (3.4-5.0) L 07/03/18 07:00 Urine Color Dkyellow 07/02/18 23:20 Urine Appearance Slcloudy 07/02/18 23:20 Urine pH 5.0 (5.0-8.0) D 07/02/18 23:20 Ur Specific [place] 1.025 (1.010-1.035) 07/02/18 23:20 Urine Protein 1+ (NEGATIVE) H 07/02/18 23:20 Urine Glucose (UA) Negative (NEGATIVE) 07/02/18 23:20 Urine Ketones Trace (NEGATIVE) H 07/02/18 23:20 Urine Blood Negative (NEGATIVE) 07/02/18 23:20 Urine Nitrite Negative (NEGATIVE) 07/02/18 23:20 Urine Bilirubin Negative (<2.0 mg/dL) 07/02/18 23:20 Urine Urobilinogen 2.0 mg/dL (0.2-1.0) H 07/02/18 23:20 Ur Leukocyte Esterase Trace (NEGATIVE) 07/02/18 23:20 Urine WBC (Auto) 5 /hpf (3-5) 07/02/18 23:20 Urine RBC (Auto) 1 /hpf (0-3) 07/02/18 23:20 Ur Epithelial Cells Rare /HPF (FEW) 07/02/18 23:20 Hyaline Casts 6 /lpf 07/02/18 23:20 Urine Mucus Few 07/02/18 23:20 RPR Titer Nonreactive (NONREACTIVE) 07/03/18 07:00 HIV 1&2 Antibody Screen Negative 07/03/18 07:00 HIV P24 Antigen Negative 07/03/18 07:00 lab noted Assessment: 07/05/18 10:44 mild withdrawal sx Plan: medically supervised detox patient prefers to return to methadone program for medical mental and addiction issues
[2018-07-05 10:59] LABS: URINE APPEARANCE SLCLOUDY; URINE BILIRUBIN NEGATIVE (<2.0 mg/dL); URINE COLOR LTYELLOW; URINE GLUCOSE (UA) NEGATIVE (NEGATIVE); URINE KETONE NEGATIVE (NEGATIVE); URINE LEUK ESTERASE NEGATIVE (NEGATIVE); URINE NITRITE NEGATIVE (NEGATIVE); URINE PROTEIN NEGATIVE (NEGATIVE); URINE UROBILINOGEN NEGATIVE mg/dL (0.2-1.0)
[2018-07-05] MEDS: LIDOCAINE PATCH REMOVAL MC SCH (21:49)
[2018-07-05 22:23] VITALS: TEMP 97.9
[2018-07-05] MEDS: THIAMINE HCL 100 MG TABLET (FP) PO SCH (22:23)
[2018-07-05] MEDS ORDERED: BENZOCAINE 20 % GEL TUBE MM PRN (22:47)
[2018-07-06] MEDS ORDERED: METHADONE HCL 10 MG TABLET ONE (05:08)
[2018-07-06] MEDS ORDERED: METHADONE HCL 40 MG DISPERSABLE TABLET ONE (05:08)
[2018-07-06] MEDS: METHADONE 40 MG, METHADONE 20 MG PO SCH (05:44)
[2018-07-06] MEDS: chlordiazePOXIDE 5 MG CAPSULE PO SCH ×2 (05:44→10:33)
[2018-07-06] MEDS: GABAPENTIN 300 MG CAPSULE (FP) PO SCH (05:44)
[2018-07-06 09:16] VITALS: BP 110/77; PULSE 68
--- NOTE | 2018-07-06 09:31 | DS ---
[facility] Detox Discharge Summary Admission Date: 07/02/18 Discharge Date: 07/06/18 - History Present History: Alcohol Dependence, Cocaine Dependence, MMTP - Physical Exam Results Vital Signs: Vital Signs Temperature 97.9 F 07/06/18 09:15 Pulse Rate 68 07/06/18 09:15 Respiratory Rate 18 07/06/18 09:15 Blood Pressure 110/77 07/06/18 09:15 O2 Sat by Pulse Oximetry (%) - Treatment Hospital Course: Detox Protocol Followed, Detoxed Safely, Responded well, Discharged Condition Good, Rehab Referral Accepted - Medication Discharge Medications: Ambulatory Orders Methadone [Dolophine -] 60 mg PO DAILY 01/13/18 Albuterol Sulfate Inhaler - [Ventolin HFA Inhaler -] 2 puff IH Q4H PRN #1 inhaler 07/05/18 Gabapentin [Neurontin] 300 mg PO TID #60 capsule 07/05/18 - Diagnosis (1) Alcohol dependence with uncomplicated withdrawal Current Visit: Yes Status: Chronic (2) Nicotine dependence Current Visit: Yes Status: Chronic Qualifiers: Nicotine product type: cigarettes Substance use status: uncomplicated Qualified Code(s): F17.210 - Nicotine dependence, cigarettes, uncomplicated (3) Asthma Current Visit: Yes Status: Chronic Qualifiers: Asthma severity: mild Asthma persistence: intermittent Asthma complication type: uncomplicated Qualified Code(s): J45.20 - Mild intermittent asthma, uncomplicated (4) Cocaine dependence, uncomplicated Current Visit: Yes Status: Chronic (5) Opioid dependence on agonist therapy Current Visit: Yes Status: Chronic (6) Scoliosis Current Visit: Yes Status: Chronic Qualifiers: Scoliosis type: unspecified scoliosis Spinal region: thoracolumbar Qualified Code(s): M41.9 - Scoliosis, unspecified (7) Tinea pedis Current Visit: Yes Status: Chronic Qualifiers: Laterality: bilateral Qualified Code(s): B35.3 - Tinea pedis (8) Use of cane as ambulatory aid Current Visit: Yes Status: Chronic (9) Pain, dental Current Visit: No Status: Acute (10) Weight decrease Current Visit: No Status: Acute (11) Back pain without sciatica Current Visit: No Status: Chronic (12) Cocaine dependence Current Visit: No Status: Chronic Qualifiers: Substance use status: uncomplicated Qualified Code(s): F14.20 - Cocaine dependence, uncomplicated (13) Methadone maintenance therapy patient Current Visit: Yes Status: Chronic (14) Neuropathy Current Visit: No Status: Chronic (15) Non compliance w medication regimen Current Visit: No Status: Chronic (16) Schizophrenia Current Visit: No Status: Chronic (17) History of bipolar disorder Current Visit: No Status: Suspected (18) History of depression Current Visit: No Status: Suspected
[2018-07-06] MEDS: PRENATAL VITAMINS W/ FOLIC ACID TABLET (FP) PO SCH (10:33)
[2018-07-06] MEDS: BACITRACIN 0.9 GM PACKET TP SCH (10:33)
[2018-07-06] MEDS: NICOTINE 21 MG/24 HOURS TOPICAL PATCH TD SCH (10:34)
[2018-07-06] MEDS: TOLNAFTATE 1% CREAM 15 GM TUBE TP SCH (10:34)
[2018-07-06] MEDS: LIDOCAINE 5% TOPICAL PATCH TP SCH (10:34)
[2018-07-06] MEDS: IBUPROFEN 400 MG TABLET (FP) PO PRN (10:37)
== END 2018-07-06 13:14 | disposition home or self-care (01) | DRG 774 ==
LOC: YASAS 18:19 → Y6N 21:42
PROC: HZ2ZZZZ Detoxification Services for Substance Abuse Treatment (ICD-10-PCS; principal; 2018-07-02)
DX: F10.230 Alcohol dependence with withdrawal, uncomplicated (principal); F14.20 Cocaine dependence, uncomplicated; F12.20 Cannabis dependence, uncomplicated; F17.210 Nicotine dependence, cigarettes, uncomplicated; F20.9 Schizophrenia, unspecified; F31.9 Bipolar disorder, unspecified; G62.9 Polyneuropathy, unspecified; M41.9 Scoliosis, unspecified; J45.20 Mild intermittent asthma, uncomplicated; K08.89 Other specified disorders of teeth and supporting structures; R63.4 Abnormal weight loss; Z68.20 Body mass index [BMI] 20.0-20.9, adult; R26.89 Other abnormalities of gait and mobility; Z99.89 Dependence on other enabling machines and devices; Z86.59 Personal history of other mental and behavioral disorders; Z91.5 Personal history of self-harm
CPT/HCPCS: 36415; 80053; 81003; 81015; 85027; 86593; 87389

== ENCOUNTER 2018-08-29 14:21 | Inpatient (IN) | payer OTHER ==
[2018-08-29 14:44] VITALS: BMI 22.6
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
[2018-08-29] MEDS ORDERED: NICOTINE POLACRILEX 2 MG GUM BC PRN (16:34)
[2018-08-29] MEDS ORDERED: MENTHOL/PHENOL 1 EACH UD MM PRN (16:34)
[2018-08-29] MEDS ORDERED: ACETAMINOPHEN 325 MG TABLET (FP) PO PRN (16:34)
[2018-08-29] MEDS ORDERED: guaiFENesin/D-METHORPHAN HB 10 ML UNIT-DOSE CUPS PO PRN (16:34)
[2018-08-29] MEDS ORDERED: LOPERAMIDE HCL 2 MG CAPSULE PO PRN (16:34)
[2018-08-29] MEDS ORDERED: MAGNESIUM HYDROX 2400MG/30ML ORAL SUSPENSION 30 ML CUP PO PRN (16:34)
[2018-08-29] MEDS ORDERED: chlordiazePOXIDE HCL 25 MG CAPSULE PO PRN (16:34)
[2018-08-29] MEDS ORDERED: P-EPHED 60MG/TRIPROLIDI 2.5MG TABLET PO PRN (16:34)
[2018-08-29] MEDS ORDERED: MAGNESIUM CITRATE 300 ML BOTTLE PO PRN (16:34)
[2018-08-29] MEDS ORDERED: ALBUTEROL SO4 8 GM HFA INHALER IH PRN (16:37)
[2018-08-29] MEDS: chlordiazePOXIDE HCL 25 MG CAPSULE PO SCH ×2 (20:01→23:02)
[2018-08-29] MEDS ORDERED: MELATONIN 5 MG TABLETS PO PRN (22:00)
[2018-08-29] MEDS: THIAMINE HCL 100 MG TABLET (FP) PO SCH (23:02)
[2018-08-29] MEDS: IBUPROFEN 400 MG TABLET (FP) PO PRN (23:04)
[2018-08-30] MEDS: chlordiazePOXIDE HCL 25 MG CAPSULE PO SCH ×4 (05:42→22:47)
[2018-08-30] MEDS ORDERED: METHADONE HCL 10 MG TABLET PO ONE (10:00)
[2018-08-30] MEDS: NICOTINE 14 MG/24 HOURS TOPICAL PATCH TD SCH (10:30)
[2018-08-30] MEDS: PRENATAL VITAMINS W/ FOLIC ACID TABLET (FP) PO SCH (10:30)
--- NOTE | 2018-08-30 10:59 | EKG ---
Test Reason : Blood Pressure : / mmHG Vent. Rate : 073 BPM Atrial Rate : 073 BPM P-R Int : 128 ms QRS Dur : 074 ms QT Int : 418 ms P-R-T Axes : 054 005 008 degrees QTc Int : 460 ms NORMAL SINUS RHYTHM NONSPECIFIC T WAVE ABNORMALITY PROLONGED QT ABNORMAL ECG WHEN COMPARED WITH ECG OF 10-JAN-2018 09:16, NO SIGNIFICANT CHANGE WAS FOUND Confirmed by BLAIR TRIVEDI MD ([id number]) on 08/30/2018 10:58:37 AM Referred By: Confirmed By:BLAIR TRIVEDI MD
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
[2018-08-30 11:17] LABS: ALBUMIN 3.3 g/dl (3.4-5.0); ALK PHOS 66 U/L (45-117); ANION GAP 5 MMOL/L (8-16); BILIRUBIN,TOTAL 0.2 mg/dL (0.2-1); BLOOD UREA NITROGEN 12 mg/dL (7-18); CALCIUM 8.4 mg/dL (8.5-10.1); CHLORIDE 109 mmol/L (98-107); CO2 30 mmol/L (21-32); CREATININE 0.7 mg/dL (0.55-1.3); GLUCOSE,RANDOM 90 mg/dL (74-106); POTASSIUM 3.8 mmol/L (3.5-5.1); SGOT/AST 25 U/L (15-37); SGPT/ALT 22 U/L (13-61); SODIUM 143 mmol/L (136-145)
[2018-08-30 11:23] LABS: HEMATOCRIT 34.4 % (32.4-45.2); HEMOGLOBIN 11.5 GM/dL (10.7-15.3); MCH 31.5 pg (25.7-33.7); MCHC 33.4 g/dl (32.0-36.0); MEAN CELL VOLUME 94.3 fl (80-96); MEAN PLT VOLUME 8.4 fl (7.5-11.1); PLATELET COUNT 244 K/MM3 (134-434); RBC 3.65 M/mm3 (3.60-5.2); RDW 15.1 % (11.6-15.6)
[2018-08-30] MEDS: GABAPENTIN 100 MG CAPSULE (FP) PO SCH ×2 (13:04→22:46)
--- NOTE | 2018-08-30 18:03 | PN ---
S CIWA - CIWA Score Nausea/Vomitin Muscle Tremors: 4-Moderate,w/Arms Extend Anxiety: 4-Mod. Anxious/Guarded Agitation: 4-Moderately Restless Paroxysmal Sweats: 3 Orientation: 0-Oriented Tacttile Disturbances: 0-None Auditory Disturbances: 0-None Visual Disturbances: 0-None Headache: 0-None Present CIWA-Ar Total Score: 17 BHS Progress Note (SOAP) Subjective: Anxious, restless, chills, sweating, tremor, interrupted sleep. Patient reported being in MMTP at [facility] and takes methadone 65mg PO daily Objective: 08/30/18 17:59 Last Vital Signs Temp Pulse Resp BP Pulse Ox 97.2 F L 85 16 146/91 08/30/18 17:41 08/30/18 17:41 08/30/18 17:41 08/30/18 17:41 Elevated b/p noted: 146/91 (not on med) Laboratory Tests 08/30/18 08/30/18 08/30/18 07:20 07:20 07:20 WBC 5.0 RBC 3.65 Hgb 11.5 Hct 34.4 MCV 94.3 MCH 31.5 MCHC 33.4 RDW 15.1 Plt Count 244 MPV 8.4 Sodium 143 Potassium 3.8 Chloride 109 H Carbon Dioxide 30 Anion Gap 5 L BUN 12 Creatinine 0.7 Creat Clearance w eGFR > 60 Random Glucose 90 Calcium 8.4 L Total Bilirubin 0.2 AST 25 ALT 22 Alkaline Phosphatase 66 Total Protein 7.0 Albumin 3.3 L RPR Titer Nonreactive Labs reviewed 08/30/18 18:03 Assessment: 08/30/18 18:01 Withdrawal symptoms Elevated b/p noted Plan: Continue detox Encouraged PO water hydration Methadone 20mg PO x 1 dose given today due to MMTP. Need to verify methadone in AM. Elevated B/P: start clonidine 0.1mg PO q8hr prn of b/p > 140/90
[2018-08-30] MEDS ORDERED: cloNIDine HCL 0.1 MG TABLET PO PRN (18:05)
[2018-08-30] MEDS: THIAMINE HCL 100 MG TABLET (FP) PO SCH (22:46)
[2018-08-30] MEDS: QUEtiapine FUMARATE 100 MG TABLET (FP) PO SCH (22:46)
[2018-08-30] MEDS: IBUPROFEN 400 MG TABLET (FP) PO PRN (22:49)
[2018-08-31] MEDS: chlordiazePOXIDE HCL 25 MG CAPSULE PO SCH ×2 (05:14→10:14)
[2018-08-31] MEDS: GABAPENTIN 100 MG CAPSULE (FP) PO SCH ×3 (06:41→22:20)
[2018-08-31] MEDS ORDERED: METHADONE HCL 10 MG TABLET PO ONE (09:01)
[2018-08-31] MEDS ORDERED: METHADONE 40 MG, METHADONE 10 MG, METHADONE 5 MG PO ONE (09:30)
[2018-08-31] MEDS ORDERED: METHADONE HCL 5 MG TABLET ONE (10:03)
[2018-08-31] MEDS ORDERED: METHADONE HCL 10 MG TABLET ONE (10:03)
[2018-08-31] MEDS ORDERED: METHADONE HCL 40 MG DISPERSABLE TABLET ONE (10:03)
[2018-08-31] MEDS: PRENATAL VITAMINS W/ FOLIC ACID TABLET (FP) PO SCH (10:14)
[2018-08-31] MEDS: NICOTINE 14 MG/24 HOURS TOPICAL PATCH TD SCH (10:15)
--- NOTE | 2018-08-31 12:37 | PN ---
S Progress Note Note: according to pt mmtp program pt was last medicated on 08/25/18. pt confirmed she missed many days. discussed with pt her dose will start at a lower dose and build her up to her max dose of 65mg. pt in agreement.
--- NOTE | 2018-08-31 12:38 | PN ---
S CIWA - CIWA Score Nausea/Vomitin-No Nausea/No Vomiting Muscle Tremors: 3 Anxiety: 3 Agitation: 3 Paroxysmal Sweats: 3 Orientation: 0-Oriented Tacttile Disturbances: 0-None Auditory Disturbances: 0-None Visual Disturbances: 0-None Headache: 0-None Present CIWA-Ar Total Score: 12 S Progress Note (SOAP) Subjective: agitation sweats restless body aches Objective: 08/31/18 12:37 Vital Signs Temperature 97.9 F 08/31/18 09:32 Pulse Rate 90 08/31/18 09:32 Respiratory Rate 16 08/31/18 09:32 Blood Pressure 118/66 08/31/18 09:32 O2 Sat by Pulse Oximetry (%) Laboratory Tests 08/30/18 08/30/18 08/30/18 07:20 07:20 07:20 WBC 5.0 RBC 3.65 Hgb 11.5 Hct 34.4 MCV 94.3 MCH 31.5 MCHC 33.4 RDW 15.1 Plt Count 244 MPV 8.4 Sodium 143 Potassium 3.8 Chloride 109 H Carbon Dioxide 30 Anion Gap 5 L BUN 12 Creatinine 0.7 Creat Clearance w eGFR > 60 Random Glucose 90 Calcium 8.4 L Total Bilirubin 0.2 AST 25 ALT 22 Alkaline Phosphatase 66 Total Protein 7.0 Albumin 3.3 L RPR Titer Nonreactive aaox3 ambulating no acute distress Assessment: 08/31/18 12:38 withdrawal sx Plan: continue detox increase fluids start methadone maintenance with 55mg today, tomorrow then increase to 65mg following day.
[2018-08-31] MEDS: chlordiazePOXIDE 5 MG CAPSULE PO SCH ×2 (17:36→22:19)
[2018-08-31] MEDS: THIAMINE HCL 100 MG TABLET (FP) PO SCH (22:20)
[2018-08-31] MEDS: QUEtiapine FUMARATE 100 MG TABLET (FP) PO SCH (22:20)
[2018-09-01] MEDS ORDERED: METHADONE HCL 5 MG TABLET ONE (04:34)
[2018-09-01] MEDS ORDERED: METHADONE HCL 10 MG TABLET ONE (04:36)
[2018-09-01] MEDS ORDERED: METHADONE HCL 40 MG DISPERSABLE TABLET ONE (04:36)
[2018-09-01] MEDS ORDERED: METHADONE HCL 10 MG TABLET PO ONE ×2 (06:00→10:00)
[2018-09-01] MEDS ORDERED: METHADONE 40 MG, METHADONE 10 MG, METHADONE 5 MG PO ONE (06:00)
[2018-09-01] MEDS: GABAPENTIN 100 MG CAPSULE (FP) PO SCH ×3 (07:14→22:19)
[2018-09-01] MEDS: chlordiazePOXIDE 5 MG CAPSULE PO SCH ×2 (07:27→10:08)
[2018-09-01] MEDS: IBUPROFEN 400 MG TABLET (FP) PO PRN (07:54)
[2018-09-01] MEDS ORDERED: SODIUM CHLORIDE NASAL SPRAY 44 ML BOTTLE NS PRN (09:13)
--- NOTE | 2018-09-01 09:16 | PN ---
BHS Progress Note (SOAP) Subjective: sweats stuffy nose I need my 10mg to reach 65mg of methadone. body aches Objective: 09/01/18 09:15 Vital Signs Temperature 98.1 F 09/01/18 07:10 Pulse Rate 81 09/01/18 07:10 Respiratory Rate 18 09/01/18 07:10 Blood Pressure 120/86 09/01/18 07:10 O2 Sat by Pulse Oximetry (%) aaox3 ambulating no acute distress Assessment: 09/01/18 09:15 mild withdrawal sx Plan: continue detox increase fluids ocean spray n/s 10mg x one methadone d/c in am
[2018-09-01] MEDS: PRENATAL VITAMINS W/ FOLIC ACID TABLET (FP) PO SCH (10:07)
[2018-09-01] MEDS: NICOTINE 14 MG/24 HOURS TOPICAL PATCH TD SCH (10:08)
[2018-09-01] MEDS: chlordiazePOXIDE HCL 10 MG CAPSULE PO SCH ×2 (16:56→22:19)
[2018-09-01] MEDS: MAG HYDROX/AL HYDROX/SIMETH 30 ML UNIT-DOSE CUP PO PRN ×2 (16:57→22:20)
[2018-09-01] MEDS: QUEtiapine FUMARATE 100 MG TABLET (FP) PO SCH (22:19)
[2018-09-01] MEDS: THIAMINE HCL 100 MG TABLET (FP) PO SCH (22:19)
[2018-09-02] MEDS ORDERED: METHADONE HCL 5 MG TABLET ONE (05:00)
[2018-09-02] MEDS ORDERED: METHADONE HCL 10 MG TABLET ONE (05:01)
[2018-09-02] MEDS ORDERED: METHADONE HCL 40 MG DISPERSABLE TABLET ONE (05:01)
[2018-09-02] MEDS: GABAPENTIN 100 MG CAPSULE (FP) PO SCH ×2 (05:40→14:30)
[2018-09-02] MEDS: chlordiazePOXIDE HCL 10 MG CAPSULE PO SCH ×2 (05:40→11:03)
[2018-09-02] MEDS ORDERED: METHADONE 40 MG, METHADONE 20 MG, METHADONE 5 MG PO SCH (06:00)
[2018-09-02] MEDS ORDERED: METHADONE HCL 40 MG DISPERSABLE TABLET PO SCH (06:00)
[2018-09-02 09:28] VITALS: PULSE 99
[2018-09-02] MEDS: PRENATAL VITAMINS W/ FOLIC ACID TABLET (FP) PO SCH (11:03)
[2018-09-02] MEDS: NICOTINE 14 MG/24 HOURS TOPICAL PATCH TD SCH (11:04)
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
--- NOTE | 2018-09-02 11:12 | DS ---
[facility] Detox Discharge Summary Admission Date: 08/29/18 Discharge Date: 09/02/18 - History Present History: Alcohol Dependence - Physical Exam Results Vital Signs: Vital Signs Temperature 98.6 F 09/02/18 09:28 Pulse Rate 99 H 09/02/18 09:28 Respiratory Rate 18 09/02/18 09:28 Blood Pressure 110/78 09/02/18 09:28 O2 Sat by Pulse Oximetry (%) - Treatment Hospital Course: Detox Protocol Followed, Detoxed Safely, Responded well, Discharged Condition Good, Rehab Referral Accepted - Medication Discharge Medications: Ambulatory Orders Methadone [Dolophine -] 65 mg PO DAILY 01/13/18 Albuterol Sulfate Inhaler - [Ventolin HFA Inhaler -] 2 puff IH Q4H PRN #1 inhaler 07/05/18 Gabapentin [Neurontin] 300 mg PO TID #60 capsule 07/05/18 - Diagnosis (1) Alcohol dependence with uncomplicated withdrawal Current Visit: Yes Status: Chronic (2) Elevated BP without diagnosis of hypertension Current Visit: Yes Status: Acute (3) Opioid dependence on agonist therapy Current Visit: Yes Status: Acute (4) Substance induced mood disorder Current Visit: Yes Status: Acute (5) Substance-induced sleep disorder Current Visit: Yes Status: Acute (6) Anemia Current Visit: Yes Status: Chronic Qualifiers: Anemia type: iron deficiency (7) Asthma Current Visit: Yes Status: Chronic Qualifiers: Asthma severity: mild Asthma persistence: intermittent Asthma complication type: uncomplicated Qualified Code(s): J45.20 - Mild intermittent asthma, uncomplicated (8) Cocaine dependence, uncomplicated Current Visit: Yes Status: Chronic (9) History of depression Current Visit: Yes Status: Chronic (10) Methadone maintenance therapy patient Current Visit: Yes Status: Chronic (11) Neuropathy Current Visit: Yes Status: Chronic (12) Nicotine dependence Current Visit: Yes Status: Chronic Qualifiers: Nicotine product type: cigarettes Substance use status: uncomplicated Qualified Code(s): F17.210 - Nicotine dependence, cigarettes, uncomplicated (13) Schizoaffective disorder Current Visit: Yes Status: Chronic (14) Seizure Current Visit: Yes Status: Chronic (15) Schizophrenia Current Visit: Yes Status: Ruled-out (16) Pain, dental Current Visit: No Status: Acute (17) Weight decrease Current Visit: No Status: Acute (18) Back pain without sciatica Current Visit: No Status: Chronic (19) Cocaine dependence Current Visit: No Status: Chronic Qualifiers: Substance use status: uncomplicated Qualified Code(s): F14.20 - Cocaine dependence, uncomplicated (20) Non compliance w medication regimen Current Visit: No Status: Chronic (21) Scoliosis Current Visit: No Status: Chronic Qualifiers: Scoliosis type: unspecified scoliosis Spinal region: thoracolumbar Qualified Code(s): M41.9 - Scoliosis, unspecified (22) Tinea pedis Current Visit: No Status: Chronic Qualifiers: Laterality: bilateral Qualified Code(s): B35.3 - Tinea pedis (23) Use of cane as ambulatory aid Current Visit: No Status: Chronic (24) History of bipolar disorder Current Visit: No Status: Suspected - AMA Did Patient Leave Against Medical Advice: No (referred to [facility].)
--- NOTE | 2018-09-02 11:51 | HP ---
[facility] Rehab Assess/Revision - Admission History Admitted to Rehab from: [facility] [place] - Vital signs Vital Signs: Vital Signs Period Temp Pulse Resp BP Sys/Bhardwaj Pulse Ox Last 24 Hr 97.5 F-98.6 F 75-99 16-19 110-137/55-80 - Findings Detox History & Physical reviewed: Yes Concur with findings: Yes Inpatient Rehab Admission - Initial Determination Are CD services needed?: Yes Not in need of hospitalization: Yes - Rehab Admission Criteria Previous failed treatment: Yes Poor recovery environment: Yes Comorbidities: Yes Lacks judgement: Yes
[2018-09-02 14:02] VITALS: BP 131/76; TEMP 98.4
[2018-09-02] MEDS: MAG HYDROX/AL HYDROX/SIMETH 30 ML UNIT-DOSE CUP PO PRN (16:54)
== END 2018-09-02 17:21 | disposition other institution (70) | DRG 773 ==
LOC: YASAS 14:21 → Y6N 17:19
PROVIDERS: ADMIT Neuromusculoskeletal Medicine & OMM; ATTEND Neuromusculoskeletal Medicine & OMM
PROC: HZ2ZZZZ Detoxification Services for Substance Abuse Treatment (ICD-10-PCS; principal; 2018-08-29)
DX: F10.230 Alcohol dependence with withdrawal, uncomplicated (principal); F11.20 Opioid dependence, uncomplicated; F14.20 Cocaine dependence, uncomplicated; F17.210 Nicotine dependence, cigarettes, uncomplicated; F19.24 Other psychoactive substance dependence with psychoactive substance-induced mood disorder; F19.282 Other psychoactive substance dependence with psychoactive substance-induced sleep disorder; F25.9 Schizoaffective disorder, unspecified; F20.9 Schizophrenia, unspecified; G40.909 Epilepsy, unspecified, not intractable, without status epilepticus; R03.0 Elevated blood-pressure reading, without diagnosis of hypertension; M41.9 Scoliosis, unspecified; B35.3 Tinea pedis; D50.9 Iron deficiency anemia, unspecified; J45.20 Mild intermittent asthma, uncomplicated; G62.9 Polyneuropathy, unspecified; K08.89 Other specified disorders of teeth and supporting structures; R26.2 Difficulty in walking, not elsewhere classified; Z99.89 Dependence on other enabling machines and devices; Z91.14 Patient's other noncompliance with medication regimen; Z91.013 Allergy to seafood; Z91.5 Personal history of self-harm
CPT/HCPCS: 36415; 73110-TC-LR-FY; 73130-TC-LT-FY; 80053; 85027; 86593; 93005; 93010

== ENCOUNTER 2018-09-02 16:53 | Inpatient (IN) | payer OTHER ==
--- NOTE | 2018-09-02 11:52 | HP ---
[facility] Rehab Assess/Revision - Admission History Ad[facility] to [facility] - Findings Detox History & Physical reviewed: Yes Concur with findings: Yes Inpatient Rehab Admission - Initial Determination Free of communicable disease: Yes Not in need of hospitalization: Yes - Rehab Admission Criteria Poor recovery environment: Yes Comorbidities: Yes Lacks judgement: Yes
[~2018-09-02 16:53] MED LIST: ACETAMINOPHEN 325 MG TABLET (FP) PO PRN; ALBUTEROL SO4 8 GM HFA INHALER IH PRN; IBUPROFEN 400 MG TABLET (FP) PO PRN; LOPERAMIDE HCL 2 MG CAPSULE PO PRN; MAG HYDROX/AL HYDROX/SIMETH 30 ML UNIT-DOSE CUP PO PRN; MAGNESIUM CITRATE 300 ML BOTTLE PO PRN; MAGNESIUM HYDROX 2400MG/30ML ORAL SUSPENSION 30 ML CUP PO PRN; MENTHOL/PHENOL 1 EACH UD MM PRN; NICOTINE POLACRILEX 4 MG GUM BUC PRN; P-EPHED 60MG/TRIPROLIDI 2.5MG TABLET PO PRN; guaiFENesin/D-METHORPHAN HB 10 ML UNIT-DOSE CUPS PO PRN; hydrOXYzine PAMOATE 50 MG CAPSULE (FP) PO PRN
[2018-09-02 21:57] VITALS: BMI 26.1
[2018-09-02] MEDS ORDERED: THIAMINE HCL 100 MG TABLET (FP) PO SCH (22:00)
[2018-09-02] MEDS ORDERED: MELATONIN 5 MG TABLETS PO PRN (22:00)
--- NOTE | 2018-09-03 01:18 | PN ---
S Progress Note Note: transfer from detox gabapentin 300 g q8 hours seroquel 100 mg q hs reordered
[2018-09-03] MEDS ORDERED: METHADONE HCL 10 MG TABLET PO SCH (06:00)
[2018-09-03] MEDS ORDERED: GABAPENTIN 300 MG CAPSULE (FP) PO SCH ×2 (06:00→14:00)
[2018-09-03] MEDS ORDERED: METHADONE 40 MG, METHADONE 20 MG, METHADONE 5 MG PO SCH (06:00)
[2018-09-03] MEDS ORDERED: METHADONE HCL 5 MG TABLET ONE (06:17)
[2018-09-03] MEDS ORDERED: METHADONE HCL 10 MG TABLET ONE (06:17)
[2018-09-03] MEDS ORDERED: METHADONE HCL 40 MG DISPERSABLE TABLET ONE (06:17)
[2018-09-03 07:44] VITALS: BP 128/86; PULSE 77; TEMP 97.9
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
[2018-09-03] MEDS ORDERED: PRENATAL VITAMINS W/ FOLIC ACID TABLET (FP) PO SCH (10:00)
[2018-09-03] MEDS ORDERED: NICOTINE 21 MG/24 HOURS TOPICAL PATCH TD SCH (10:00)
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
--- NOTE | 2018-09-03 17:43 | DS ---
[facility] Detox Discharge Summary Admission Date: 09/02/18 Discharge Date: 09/03/18 - History Additional Comments: Pt is here for alcohol rehab- finished detox here. Pt states the other patients on the floor are making her feel uncomfortable as she is incontinent and they say "she smells". Pt states she already called her who is coming to pick her up. Pt states she will get care outside- she knows of other rehab and detox facilities- pt to talk to counselor now to discuss this further. - Physical Exam Results Vital Signs: Vital Signs Temperature 97.9 F 09/03/18 07:43 Pulse Rate 77 09/03/18 07:43 Respiratory Rate 18 09/03/18 07:43 Blood Pressure 128/86 09/03/18 07:43 O2 Sat by Pulse Oximetry (%) - Treatment Hospital Course: Detox Protocol Followed - Medication Discharge Medications: Ambulatory Orders Methadone [Dolophine -] 65 mg PO DAILY 01/13/18 Albuterol Sulfate Inhaler - [Ventolin HFA Inhaler -] 2 puff IH Q4H PRN #1 inhaler 07/05/18 Gabapentin [Neurontin] 300 mg PO TID #60 capsule 07/05/18
--- NOTE | 2018-09-03 17:45 | PN ---
[facility] Progress Note Note: Pt is AMA discharged today from rehab. Pt admitted yesterday. Pt was here for alcohol rehab- completed detox here. Pt states the other patients on the floor are making her feel uncomfortable as she is incontinent and they say "she smells". Pt states she already called her who is coming to pick her up. Pt states she will get care elsewhere- she knows of other rehab and detox facilities- pt to talk to counselor now to discuss this further. Pt will continue with her methadone program. Pt requested refill of neurontin- sent to pharmacy.
[2018-09-03] MEDS ORDERED: QUEtiapine FUMARATE 100 MG TABLET (FP) PO SCH (22:00)
[2018-09-03] MEDS ORDERED: QUEtiapine FUMARATE 200 MG TABLET PO SCH (22:00)
== END 2018-09-03 18:15 | disposition left against medical advice (07) | DRG 770 ==
LOC: YASAS 16:53 → Y3E 16:54
PROVIDERS: ADMIT Psychiatry & Neurology Psychiatry; ATTEND Psychiatry & Neurology Psychiatry
PROC: HZ42ZZZ Group Counseling for Substance Abuse Treatment, Cognitive-Behavioral (ICD-10-PCS; principal; 2018-09-02)
DX: F10.20 Alcohol dependence, uncomplicated (principal); F11.20 Opioid dependence, uncomplicated; F14.20 Cocaine dependence, uncomplicated; F25.9 Schizoaffective disorder, unspecified; F20.0 Paranoid schizophrenia; F19.280 Other psychoactive substance dependence with psychoactive substance-induced anxiety disorder; F19.282 Other psychoactive substance dependence with psychoactive substance-induced sleep disorder; M79.89 Other specified soft tissue disorders; G62.9 Polyneuropathy, unspecified; J45.20 Mild intermittent asthma, uncomplicated; D64.9 Anemia, unspecified; G40.909 Epilepsy, unspecified, not intractable, without status epilepticus

== ENCOUNTER 2020-10-21 18:53 | Inpatient (IN) | payer OTHER ==
[2020-10-21 19:28] VITALS: BMI 22.3
[2020-10-21] MEDS ORDERED: ALBUTEROL SO4 HFA INHALER IH PRN (21:37)
[2020-10-21] MEDS ORDERED: IBUPROFEN 400 MG TABLET (FP) PO PRN (21:38)
[2020-10-21] MEDS ORDERED: METHADONE HCL 10 MG TABLET (FOR DETOX USE ONLY) PO ONE (21:38)
[2020-10-21] MEDS ORDERED: ACETAMINOPHEN 325 MG TABLET (FP) PO PRN ×2 (21:38)
[2020-10-21] MEDS ORDERED: NALOXONE HCL 0.4 MG/ML VIAL IM PRN (21:38)
[2020-10-21] MEDS ORDERED: NALOXONE (NARCAN) HCL 4 MG/0.1 ML SPRAY NS PRN (21:38)
[2020-10-21] MEDS ORDERED: P-EPHED 60MG/TRIPROLIDI 2.5MG TABLET PO PRN (21:38)
[2020-10-21] MEDS ORDERED: cloNIDine HCL 0.1 MG TABLET PO PRN (21:38)
[2020-10-21] MEDS ORDERED: guaiFENesin 200 MG/10 ML 10 ML UNIT-DOSE CUPS PO PRN (21:38)
[2020-10-21] MEDS ORDERED: MENTHOL/PHENOL 1 EACH UD MM PRN (21:38)
[2020-10-21] MEDS ORDERED: DICYCLOMINE HCL 10 MG CAPSULE PO PRN (21:38)
[2020-10-21] MEDS ORDERED: BISMUTH SUBSALICYLATE 524 MG/30 ML UD PO PRN (21:38)
[2020-10-21] MEDS ORDERED: MAGNESIUM CITRATE 300 ML BOTTLE PO PRN (21:38)
[2020-10-21] MEDS ORDERED: MAG HYDROX/AL HYDROX/SIMETH 30 ML UNIT-DOSE CUP PO PRN (21:38)
[2020-10-21] MEDS ORDERED: NICOTINE POLACRILEX 4 MG GUM BUC PRN (21:38)
[2020-10-21] MEDS ORDERED: MAGNESIUM HYDROX 2400MG/30ML ORAL SUSPENSION 30 ML CUP PO PRN (21:38)
[2020-10-21] MEDS: GABAPENTIN 100 MG CAPSULE PO SCH (23:03)
[2020-10-21] MEDS: CEPHALEXIN MONOHYDRATE 500 MG CAPSULE (UD) PO SCH (23:04)
[2020-10-21] MEDS: MELATONIN 5 MG TABLETS PO SCH (23:04)
[2020-10-21] MEDS: THIAMINE HCL 100 MG TABLET (FP) PO SCH (23:04)
[2020-10-22] MEDS: GABAPENTIN 100 MG CAPSULE PO SCH ×3 (05:06→22:54)
[2020-10-22] MEDS: CEPHALEXIN MONOHYDRATE 500 MG CAPSULE (UD) PO SCH ×5 (05:06→23:25)
[2020-10-22] MEDS: diazePAM 5 MG TABLET PO PRN ×4 (05:07→22:54)
[2020-10-22] MEDS ORDERED: METHADONE HCL 10 MG TABLET (FOR DETOX USE ONLY) ONE (09:03)
[2020-10-22] MEDS ORDERED: METHADONE HCL 5 MG TABLET (FOR DETOX USE ONLY) ONE (09:04)
[2020-10-22] MEDS ORDERED: METHADONE (DETOX) 20 MG, METHADONE (DETOX) 5 MG PO ONE (10:00)
[2020-10-22] MEDS: PRENATAL VITAMINS W/ FOLIC ACID TABLET (FP) PO SCH (10:32)
[2020-10-22] MEDS: NICOTINE 21 MG/24 HOURS TOPICAL PATCH TD SCH (10:35)
[2020-10-22 11:29] LABS: POTASSIUM 4.1 mmol/L (3.5-5.1)
[2020-10-22 11:32] LABS: HEMATOCRIT 34.6 % (32.4-45.2); HEMOGLOBIN 11.5 GM/dL (10.7-15.3); MCH 31.4 pg (25.7-33.7); MCHC 33.3 g/dl (32.0-36.0); MEAN CELL VOLUME 94.1 fl (80-96); MEAN PLT VOLUME 7.9 fl (7.5-11.1); PLATELET COUNT 307 K/MM3 (134-434); RBC 3.68 M/mm3 (3.60-5.2); RDW 13.9 % (11.6-15.6); WHITE BLOOD COUNT 3.6 K/mm3 (4.0-10.0)
[2020-10-22 11:37] LABS: ALBUMIN 3.5 g/dl (3.4-5.0); BLOOD UREA NITROGEN 12.6 mg/dL (7-18); CALCIUM 9.2 mg/dL (8.5-10.1)
[2020-10-22 11:41] LABS: CREATININE 0.9 mg/dL (0.55-1.3)
[2020-10-22 11:42] LABS: BILIRUBIN,TOTAL 0.6 mg/dL (0.2-1); TOT PROT 8.1 g/dl (6.4-8.2)
[2020-10-22] MEDS: THIAMINE HCL 100 MG TABLET (FP) PO SCH (22:53)
[2020-10-22] MEDS: MELATONIN 5 MG TABLETS PO SCH (22:53)
[2020-10-22] MEDS: QUEtiapine FUMARATE 50 MG TABLET PO SCH (22:55)
[2020-10-23] MEDS: METHOCARBAMOL 500 MG TABLET PO PRN ×2 (00:57→10:40)
[2020-10-23] MEDS: GABAPENTIN 100 MG CAPSULE PO SCH ×3 (07:12→22:41)
[2020-10-23] MEDS: diazePAM 5 MG TABLET PO PRN ×2 (07:13→13:47)
[2020-10-23] MEDS: CEPHALEXIN MONOHYDRATE 500 MG CAPSULE (UD) PO SCH ×3 (07:13→18:40)
[2020-10-23] MEDS ORDERED: METHADONE HCL 10 MG TABLET (FOR DETOX USE ONLY) PO ONE (10:00)
[2020-10-23] MEDS: NICOTINE 21 MG/24 HOURS TOPICAL PATCH TD SCH (10:39)
[2020-10-23] MEDS: PRENATAL VITAMINS W/ FOLIC ACID TABLET (FP) PO SCH (10:39)
[2020-10-23] MEDS: THIAMINE HCL 100 MG TABLET (FP) PO SCH (22:40)
[2020-10-23] MEDS: QUEtiapine FUMARATE 50 MG TABLET PO SCH (22:40)
[2020-10-23] MEDS: MELATONIN 5 MG TABLETS PO SCH (22:41)
[2020-10-24] MEDS: CEPHALEXIN MONOHYDRATE 500 MG CAPSULE (UD) PO SCH ×4 (00:01→17:28)
[2020-10-24] MEDS: diazePAM 5 MG TABLET PO PRN ×3 (06:20→16:33)
[2020-10-24] MEDS: GABAPENTIN 100 MG CAPSULE PO SCH ×3 (06:21→15:04)
[2020-10-24] MEDS ORDERED: METHADONE HCL 5 MG TABLET (FOR DETOX USE ONLY) ONE (08:53)
[2020-10-24] MEDS ORDERED: METHADONE HCL 10 MG TABLET (FOR DETOX USE ONLY) ONE (08:53)
[2020-10-24] MEDS: NICOTINE 21 MG/24 HOURS TOPICAL PATCH TD SCH (09:27)
[2020-10-24] MEDS: PRENATAL VITAMINS W/ FOLIC ACID TABLET (FP) PO SCH (09:27)
[2020-10-24] MEDS: ONDANSETRON *ODT* 4 MG TABLET SL PRN ×2 (09:57→17:29)
[2020-10-24] MEDS ORDERED: METHADONE (DETOX) 10 MG, METHADONE (DETOX) 5 MG PO ONE (10:00)
[2020-10-24] MEDS ORDERED: TRIMETHOBENZAMIDE HCL 200MG/2ML INJ IM ONE (11:05)
[2020-10-24] MEDS: METHOCARBAMOL 500 MG TABLET PO PRN (12:19)
[2020-10-24] MEDS ORDERED: TRIMETHOBENZAMIDE HCL 200MG/2ML INJ IM PRN (14:50)
[2020-10-24 18:14] VITALS: BP 153/113; PULSE 90; TEMP 96.8
[2020-10-25] MEDS ORDERED: METHADONE HCL 10 MG TABLET (FOR DETOX USE ONLY) PO ONE (10:00)
[2020-10-26] MEDS ORDERED: METHADONE HCL 5 MG TABLET (FOR DETOX USE ONLY) PO ONE (06:00)
== END 2020-10-24 20:45 | disposition left against medical advice (07) | DRG 770 ==
LOC: YASAS 18:53 → Y3N 21:50
PROVIDERS: ADMIT Allergy & Immunology; ATTEND Allergy & Immunology
PROC: HZ2ZZZZ Detoxification Services for Substance Abuse Treatment (ICD-10-PCS; principal; 2020-10-21)
DX: F10.230 Alcohol dependence with withdrawal, uncomplicated (principal); F11.20 Opioid dependence, uncomplicated; F14.20 Cocaine dependence, uncomplicated; F12.20 Cannabis dependence, uncomplicated; F17.210 Nicotine dependence, cigarettes, uncomplicated; F25.9 Schizoaffective disorder, unspecified; F19.280 Other psychoactive substance dependence with psychoactive substance-induced anxiety disorder; F19.282 Other psychoactive substance dependence with psychoactive substance-induced sleep disorder; F19.24 Other psychoactive substance dependence with psychoactive substance-induced mood disorder; F31.9 Bipolar disorder, unspecified; U07.1 COVID-19; J45.20 Mild intermittent asthma, uncomplicated; K21.9 Gastro-esophageal reflux disease without esophagitis; M41.9 Scoliosis, unspecified; B18.2 Chronic viral hepatitis C; R56.9 Unspecified convulsions; Z86.69 Personal history of other diseases of the nervous system and sense organs; Z91.410 Personal history of adult physical and sexual abuse; Z91.040 Latex allergy status; Z91.048 Other nonmedicinal substance allergy status; Z91.013 Allergy to seafood
CPT/HCPCS: 36415; 80053; 81025; 85027; 86780; 93005; 93010; C9803; J0735; Q0162; U0003

== ENCOUNTER 2022-02-12 12:05 | Inpatient (IN) | payer OTHER ==
[~2022-02-12 12:05] MED LIST changes: -ACETAMINOPHEN 325 MG TABLET (FP) PO PRN; -ALBUTEROL SO4 8 GM HFA INHALER IH PRN; -IBUPROFEN 400 MG TABLET (FP) PO PRN; -LOPERAMIDE HCL 2 MG CAPSULE PO PRN; -MAG HYDROX/AL HYDROX/SIMETH 30 ML UNIT-DOSE CUP PO PRN; -MAGNESIUM CITRATE 300 ML BOTTLE PO PRN; -MAGNESIUM HYDROX 2400MG/30ML ORAL SUSPENSION 30 ML CUP PO PRN; -MENTHOL/PHENOL 1 EACH UD MM PRN; -NICOTINE POLACRILEX 4 MG GUM BUC PRN; -P-EPHED 60MG/TRIPROLIDI 2.5MG TABLET PO PRN; -guaiFENesin/D-METHORPHAN HB 10 ML UNIT-DOSE CUPS PO PRN; -hydrOXYzine PAMOATE 50 MG CAPSULE (FP) PO PRN; +methaDONE 40 MG, methaDONE 30 MG PO ONE
[2022-02-12 13:01] VITALS: BMI 18.5
[2022-02-12] MEDS ORDERED: DICYCLOMINE HCL 10 MG CAPSULE PO PRN (13:40)
[2022-02-12] MEDS ORDERED: BENZOCAINE/MENTHOL (CHLORASEPTIC ) LOZENGE MM PRN (13:40)
[2022-02-12] MEDS ORDERED: MAG HYDROX/AL HYDROX/SIMETH 30 ML UNIT-DOSE CUP PO PRN (13:40)
[2022-02-12] MEDS ORDERED: MAGNESIUM CITRATE 300 ML BOTTLE PO PRN (13:40)
[2022-02-12] MEDS ORDERED: BISMUTH SUBSALICYLATE 262 MG/15 ML BTL PO PRN (13:40)
[2022-02-12] MEDS ORDERED: LOPERAMIDE HCL 2 MG CAPSULE PO PRN (13:40)
[2022-02-12] MEDS ORDERED: IBUPROFEN 400 MG TABLET (FP) PO PRN (13:40)
[2022-02-12] MEDS ORDERED: LORazepam 1 MG TABLET PO PRN (13:40)
[2022-02-12] MEDS ORDERED: MAGNESIUM HYDROX 2400MG/30ML ORAL SUSPENSION 30 ML CUP PO PRN (13:40)
[2022-02-12] MEDS ORDERED: ONDANSETRON *ODT* 4 MG TABLET SL PRN (13:40)
[2022-02-12] MEDS ORDERED: IBUPROFEN 600 MG TABLET (FP) PO PRN (13:40)
[2022-02-12] MEDS ORDERED: ACETAMINOPHEN 325 MG TABLET (FP) PO PRN ×2 (13:40)
[2022-02-12] MEDS ORDERED: methaDONE HCL 10 MG TABLET (FOR DETOX USE ONLY) PO ONE (15:23)
[2022-02-12] MEDS ORDERED: methaDONE HCL 10 MG TABLET ONE (15:39)
[2022-02-12] MEDS ORDERED: methaDONE HCL 40 MG DISPERSABLE TABLET ONE (15:39)
[2022-02-12] MEDS: NICOTINE 21 MG/24 HOURS TOPICAL PATCH TD SCH (15:49)
[2022-02-12] MEDS: hydrOXYzine PAMOATE 25 MG CAPSULE (FP) PO SCH ×3 (15:49→23:42)
[2022-02-12] MEDS ORDERED: ALBUTEROL SO4 HFA INHALER IH PRN (16:37)
[2022-02-12] MEDS: LORazepam 2 MG TABLET PO SCH ×2 (18:00→23:21)
[2022-02-12] MEDS ORDERED: MELATONIN 5 MG TABLETS PO SCH (22:00)
[2022-02-12] MEDS: THIAMINE HCL 100 MG TABLET (FP) PO SCH (23:43)
[2022-02-13] MEDS ORDERED: methaDONE HCL 40 MG DISPERSABLE TABLET ONE (04:37)
[2022-02-13] MEDS ORDERED: methaDONE HCL 10 MG TABLET ONE (04:37)
[2022-02-13] MEDS: methaDONE 40 MG, methaDONE 30 MG PO SCH (05:34)
[2022-02-13] MEDS: LORazepam 2 MG TABLET PO SCH ×2 (05:35→12:01)
[2022-02-13] MEDS ORDERED: methaDONE HCL 10 MG TABLET PO SCH (06:00)
[2022-02-13] MEDS: hydrOXYzine PAMOATE 25 MG CAPSULE (FP) PO SCH ×2 (06:04→10:16)
[2022-02-13] MEDS: PRENATAL VITAMINS W/ FOLIC ACID TABLET (FP) PO SCH (10:17)
[2022-02-13] MEDS: NICOTINE 21 MG/24 HOURS TOPICAL PATCH TD SCH (10:18)
[2022-02-13 11:03] LABS: HEMOGLOBIN 10.1 GM/dL (10.7-15.3); MCH 29.2 pg (25.7-33.7); MCHC 32.4 g/dl (32.0-36.0); MEAN CELL VOLUME 90.1 fl (80-96); MEAN PLT VOLUME 9.3 fl (7.5-11.1); PLATELET COUNT 272 10^3/uL (134-434); RBC 3.45 M/mm3 (3.60-5.2); RDW 15.6 % (11.6-15.6); WHITE BLOOD COUNT 3.7 K/mm3 (4.0-10.0)
[2022-02-13 11:28] LABS: ALBUMIN 3.9 g/dl (3.4-5.0); BLOOD UREA NITROGEN 15.4 mg/dL (7-18); CALCIUM 9.2 mg/dL (8.5-10.1)
[2022-02-13 11:33] LABS: BILIRUBIN,TOTAL 0.7 mg/dL (0.2-1); TOT PROT 8.3 g/dl (6.4-8.2)
[2022-02-13] MEDS: LORazepam 0.5 MG TABLET PO SCH ×2 (18:10→23:57)
[2022-02-13] MEDS: LORazepam 0.5 MG TABLET PO ONE (22:13)
[2022-02-13] MEDS: THIAMINE HCL 100 MG TABLET (FP) PO SCH (23:00)
[2022-02-14] MEDS ORDERED: methaDONE HCL 10 MG TABLET ONE (03:57)
[2022-02-14] MEDS ORDERED: methaDONE HCL 40 MG DISPERSABLE TABLET ONE (03:57)
[2022-02-14] MEDS ORDERED: LORazepam 1 MG TABLET PO SCH (05:00)
[2022-02-14] MEDS: methaDONE 40 MG, methaDONE 30 MG PO SCH (05:50)
[2022-02-14] MEDS: LORazepam 0.5 MG TABLET PO SCH ×4 (05:51→22:30)
[2022-02-14] MEDS: NICOTINE 21 MG/24 HOURS TOPICAL PATCH TD SCH (10:22)
[2022-02-14] MEDS: PRENATAL VITAMINS W/ FOLIC ACID TABLET (FP) PO SCH (10:24)
[2022-02-14] MEDS: THIAMINE HCL 100 MG TABLET (FP) PO SCH (22:30)
[2022-02-14] MEDS: METHOCARBAMOL 500 MG TABLET PO PRN (22:30)
[2022-02-15] MEDS ORDERED: LORazepam 0.5 MG TABLET PO PRN
[2022-02-15] MEDS ORDERED: methaDONE HCL 40 MG DISPERSABLE TABLET ONE (04:54)
[2022-02-15] MEDS ORDERED: methaDONE HCL 10 MG TABLET ONE (04:54)
[2022-02-15] MEDS: LORazepam 0.5 MG TABLET PO SCH ×4 (05:36→22:22)
[2022-02-15] MEDS: methaDONE 40 MG, methaDONE 30 MG PO SCH (05:36)
[2022-02-15] MEDS: NICOTINE 21 MG/24 HOURS TOPICAL PATCH TD SCH (10:07)
[2022-02-15] MEDS: PRENATAL VITAMINS W/ FOLIC ACID TABLET (FP) PO SCH (10:08)
[2022-02-15] MEDS: METHOCARBAMOL 500 MG TABLET PO PRN (17:27)
[2022-02-15] MEDS: THIAMINE HCL 100 MG TABLET (FP) PO SCH (22:22)
[2022-02-16] MEDS ORDERED: methaDONE HCL 10 MG TABLET ONE (03:29)
[2022-02-16] MEDS ORDERED: methaDONE HCL 40 MG DISPERSABLE TABLET ONE (03:29)
[2022-02-16] MEDS: methaDONE 40 MG, methaDONE 30 MG PO SCH (05:48)
[2022-02-16] MEDS: LORazepam 0.5 MG TABLET PO ONE (05:48)
[2022-02-16 09:29] VITALS: BP 138/75; PULSE 71; TEMP 98
== END 2022-02-16 09:40 | disposition home or self-care (01) | DRG 773 ==
LOC: YASAS 12:05 → Y3N 14:57 → Y6N 14:58
PROVIDERS: ADMIT Allergy & Immunology; ATTEND Surgery
PROC: HZ2ZZZZ Detoxification Services for Substance Abuse Treatment (ICD-10-PCS; principal; 2022-02-12)
DX: F10.230 Alcohol dependence with withdrawal, uncomplicated (principal); F11.20 Opioid dependence, uncomplicated; F14.20 Cocaine dependence, uncomplicated; F12.20 Cannabis dependence, uncomplicated; F17.210 Nicotine dependence, cigarettes, uncomplicated; F25.9 Schizoaffective disorder, unspecified; F19.280 Other psychoactive substance dependence with psychoactive substance-induced anxiety disorder; F19.282 Other psychoactive substance dependence with psychoactive substance-induced sleep disorder; F19.24 Other psychoactive substance dependence with psychoactive substance-induced mood disorder; G62.9 Polyneuropathy, unspecified; K21.9 Gastro-esophageal reflux disease without esophagitis; J45.20 Mild intermittent asthma, uncomplicated; M41.9 Scoliosis, unspecified; M54.50 Low back pain, unspecified; G89.29 Other chronic pain; B18.2 Chronic viral hepatitis C; Z99.89 Dependence on other enabling machines and devices; Z28.310 Unvaccinated for COVID-19; Z91.013 Allergy to seafood
CPT/HCPCS: 36415; 80053; 81025; 85027; 86780; C9803-CS; U0003; U0005

== ENCOUNTER 2022-06-04 12:17 | Inpatient (IN) | payer OTHER ==
[2022-06-04 12:55] VITALS: BMI 21.1
[2022-06-04] MEDS ORDERED: BISMUTH SUBSALICYLATE 524 MG/30 ML PO PRN (13:46)
[2022-06-04] MEDS ORDERED: MAGNESIUM HYDROX 2400MG/30ML ORAL SUSPENSION 30 ML CUP PO PRN (13:46)
[2022-06-04] MEDS ORDERED: ACETAMINOPHEN 325 MG TABLET (FP) PO PRN ×2 (13:46)
[2022-06-04] MEDS ORDERED: IBUPROFEN 400 MG TABLET (FP) PO PRN (13:46)
[2022-06-04] MEDS ORDERED: MAG HYDROX/AL HYDROX/SIMETH 30 ML UNIT-DOSE CUP PO PRN (13:46)
[2022-06-04] MEDS ORDERED: IBUPROFEN 600 MG TABLET (FP) PO PRN (13:46)
[2022-06-04] MEDS ORDERED: NICOTINE 10 MG CARTRIDGE (INHALER) IH PRN (13:46)
[2022-06-04] MEDS ORDERED: BENZOCAINE/MENTHOL (CHLORASEPTIC ) LOZENGE MM PRN (13:46)
[2022-06-04] MEDS ORDERED: MAGNESIUM CITRATE 300 ML BOTTLE PO PRN (13:46)
[2022-06-04] MEDS ORDERED: DICYCLOMINE HCL 10 MG CAPSULE PO PRN (13:46)
[2022-06-04] MEDS ORDERED: ONDANSETRON *ODT* 4 MG TABLET SL PRN (13:46)
[2022-06-04] MEDS ORDERED: LOPERAMIDE HCL 2 MG CAPSULE PO PRN (13:46)
[2022-06-04] MEDS ORDERED: NALOXONE HCL (KLOXXADO) 8 MG SPRAY NS PRN (13:46)
[2022-06-04] MEDS ORDERED: methaDONE HCL 10 MG TABLET PO SCH (14:45)
[2022-06-04] MEDS: hydrOXYzine PAMOATE 25 MG CAPSULE (FP) PO PRN (15:06)
[2022-06-04] MEDS: NICOTINE 21 MG/24 HOURS TOPICAL PATCH TD SCH (15:12)
[2022-06-04] MEDS: PRENATAL VITAMINS W/ FOLIC ACID TABLET (FP) PO SCH (15:12)
[2022-06-04] MEDS ORDERED: methaDONE 40 MG, methaDONE 30 MG PO ONE (15:15)
[2022-06-04 16:24] LABS: HEMATOCRIT 29.4 % (32.4-45.2); HEMOGLOBIN 9.5 GM/dL (10.7-15.3); MCHC 32.2 g/dl (32.0-36.0); MEAN PLT VOLUME 7.6 fl (7.5-11.1); PLATELET COUNT 344 10^3/uL (134-434); RBC 3.26 M/mm3 (3.60-5.2); RDW 14.9 % (11.6-15.6); WHITE BLOOD COUNT 5.1 K/mm3 (4.0-10.0)
[2022-06-04 16:25] LABS: CALCIUM 9.3 mg/dL (8.5-10.1)
[2022-06-04 16:26] LABS: ALBUMIN 3.6 g/dl (3.4-5.0)
[2022-06-04 16:30] LABS: BILIRUBIN,TOTAL 0.2 mg/dL (0.2-1)
[2022-06-04] MEDS: THIAMINE HCL 100 MG TABLET (FP) PO SCH (22:16)
[2022-06-04] MEDS: MELATONIN 5 MG TABLETS PO SCH (22:16)
[2022-06-05] MEDS: methaDONE 40 MG, methaDONE 30 MG PO SCH (05:33)
[2022-06-05] MEDS ORDERED: chlordiazePOXIDE HCL 25 MG CAPSULE PO PRN (10:15)
[2022-06-05] MEDS: NICOTINE 21 MG/24 HOURS TOPICAL PATCH TD SCH (10:19)
[2022-06-05] MEDS: PRENATAL VITAMINS W/ FOLIC ACID TABLET (FP) PO SCH (10:19)
[2022-06-05] MEDS ORDERED: LORazepam 1 MG TABLET PO PRN (10:21)
[2022-06-05] MEDS: LORazepam 2 MG TABLET PO SCH ×3 (10:44→22:36)
[2022-06-05] MEDS ORDERED: chlordiazePOXIDE HCL 25 MG CAPSULE PO SCH (11:00)
[2022-06-05] MEDS: FERROUS SO4 325 MG TABLET (FP) PO SCH ×2 (11:18→17:49)
[2022-06-05] MEDS: GABAPENTIN 300 MG CAPSULE PO SCH ×2 (14:04→22:36)
[2022-06-05] MEDS: hydrOXYzine PAMOATE 25 MG CAPSULE (FP) PO PRN ×2 (17:49→22:35)
[2022-06-05] MEDS: METHOCARBAMOL 500 MG TABLET PO PRN (17:49)
[2022-06-05] MEDS: THIAMINE HCL 100 MG TABLET (FP) PO SCH (22:35)
[2022-06-05] MEDS: MELATONIN 5 MG TABLETS PO SCH (22:36)
[2022-06-05] MEDS: QUEtiapine FUMARATE 25 MG TABLET PO SCH (22:36)
[2022-06-06] MEDS: GABAPENTIN 300 MG CAPSULE PO SCH ×3 (06:13→22:23)
[2022-06-06] MEDS: methaDONE 40 MG, methaDONE 30 MG PO SCH (06:13)
[2022-06-06] MEDS: LORazepam 2 MG TABLET PO SCH (06:14)
[2022-06-06] MEDS: FERROUS SO4 325 MG TABLET (FP) PO SCH ×3 (09:00→17:23)
[2022-06-06] MEDS: PRENATAL VITAMINS W/ FOLIC ACID TABLET (FP) PO SCH (10:58)
[2022-06-06] MEDS: NICOTINE 21 MG/24 HOURS TOPICAL PATCH TD SCH (10:59)
[2022-06-06] MEDS: QUEtiapine FUMARATE 25 MG TABLET PO SCH (22:22)
[2022-06-06] MEDS: MELATONIN 5 MG TABLETS PO SCH (22:23)
[2022-06-06] MEDS: THIAMINE HCL 100 MG TABLET (FP) PO SCH (22:23)
[2022-06-07] MEDS ORDERED: chlordiazePOXIDE HCL 25 MG CAPSULE PO SCH (05:00)
[2022-06-07] MEDS ORDERED: LORazepam 1 MG TABLET PO SCH (05:00)
[2022-06-07] MEDS: LORazepam 0.5 MG TABLET PO SCH ×4 (05:41→22:09)
[2022-06-07] MEDS: GABAPENTIN 300 MG CAPSULE PO SCH ×3 (05:41→22:09)
[2022-06-07] MEDS: methaDONE 40 MG, methaDONE 30 MG PO SCH (05:41)
[2022-06-07] MEDS: FERROUS SO4 325 MG TABLET (FP) PO SCH ×3 (07:13→18:07)
[2022-06-07] MEDS: NICOTINE 21 MG/24 HOURS TOPICAL PATCH TD SCH (10:21)
[2022-06-07] MEDS: PRENATAL VITAMINS W/ FOLIC ACID TABLET (FP) PO SCH (10:21)
[2022-06-07] MEDS: METHOCARBAMOL 500 MG TABLET PO PRN (18:08)
[2022-06-07] MEDS: THIAMINE HCL 100 MG TABLET (FP) PO SCH (22:09)
[2022-06-07] MEDS: MELATONIN 5 MG TABLETS PO SCH (22:09)
[2022-06-07] MEDS: hydrOXYzine PAMOATE 25 MG CAPSULE (FP) PO PRN (22:09)
[2022-06-07] MEDS: QUEtiapine FUMARATE 25 MG TABLET PO SCH (22:09)
[2022-06-08] MEDS ORDERED: chlordiazePOXIDE HCL 10 MG CAPSULE PO PRN
[2022-06-08] MEDS ORDERED: LORazepam 0.5 MG TABLET PO PRN
[2022-06-08] MEDS ORDERED: chlordiazePOXIDE HCL 10 MG CAPSULE PO SCH (05:00)
[2022-06-08] MEDS: methaDONE 40 MG, methaDONE 30 MG PO SCH (05:26)
[2022-06-08] MEDS: GABAPENTIN 300 MG CAPSULE PO SCH ×3 (05:26→22:03)
[2022-06-08] MEDS: LORazepam 0.5 MG TABLET PO SCH ×4 (05:26→22:03)
[2022-06-08] MEDS: FERROUS SO4 325 MG TABLET (FP) PO SCH ×3 (07:08→17:47)
[2022-06-08] MEDS: METHOCARBAMOL 500 MG TABLET PO PRN (10:02)
[2022-06-08] MEDS: PRENATAL VITAMINS W/ FOLIC ACID TABLET (FP) PO SCH (10:02)
[2022-06-08] MEDS: hydrOXYzine PAMOATE 25 MG CAPSULE (FP) PO PRN (10:02)
[2022-06-08] MEDS: NICOTINE 21 MG/24 HOURS TOPICAL PATCH TD SCH (10:04)
[2022-06-08 11:29] LABS: HEMATOCRIT 26.3 % (32.4-45.2); HEMOGLOBIN 8.5 GM/dL (10.7-15.3); MCH 29.1 pg (25.7-33.7); MCHC 32.5 g/dl (32.0-36.0); MEAN CELL VOLUME 89.5 fl (80-96); MEAN PLT VOLUME 8.1 fl (7.5-11.1); PLATELET COUNT 280 10^3/uL (134-434); RBC 2.93 M/mm3 (3.60-5.2); RDW 14.9 % (11.6-15.6); WHITE BLOOD COUNT 4.9 K/mm3 (4.0-10.0)
[2022-06-08] MEDS: QUEtiapine FUMARATE 25 MG TABLET PO SCH (22:03)
[2022-06-08] MEDS: THIAMINE HCL 100 MG TABLET (FP) PO SCH (22:03)
[2022-06-08] MEDS: MELATONIN 5 MG TABLETS PO SCH (22:05)
[2022-06-09] MEDS ORDERED: chlordiazePOXIDE HCL 10 MG CAPSULE PO SCH (05:00)
[2022-06-09] MEDS ORDERED: LORazepam 0.5 MG TABLET PO ONE (05:00)
[2022-06-09] MEDS: GABAPENTIN 300 MG CAPSULE PO SCH (05:22)
[2022-06-09] MEDS: methaDONE 40 MG, methaDONE 30 MG PO SCH (05:22)
[2022-06-09] MEDS: FERROUS SO4 325 MG TABLET (FP) PO SCH ×2 (08:53→11:09)
[2022-06-09 09:28] VITALS: BP 98/72; PULSE 87; RESP 16; TEMP 97.7
[2022-06-09] MEDS: PRENATAL VITAMINS W/ FOLIC ACID TABLET (FP) PO SCH (10:43)
[2022-06-09] MEDS: NICOTINE 21 MG/24 HOURS TOPICAL PATCH TD SCH (11:09)
[2022-06-10] MEDS ORDERED: chlordiazePOXIDE HCL 10 MG CAPSULE PO ONE (05:00)
== END 2022-06-09 11:34 | disposition home or self-care (01) | DRG 773 ==
LOC: YASAS 12:17 → Y6N 14:41
PROVIDERS: ADMIT Allergy & Immunology; ATTEND Surgery
PROC: HZ2ZZZZ Detoxification Services for Substance Abuse Treatment (ICD-10-PCS; principal; 2022-06-04)
DX: F10.230 Alcohol dependence with withdrawal, uncomplicated (principal); F11.20 Opioid dependence, uncomplicated; F14.20 Cocaine dependence, uncomplicated; F12.20 Cannabis dependence, uncomplicated; F17.210 Nicotine dependence, cigarettes, uncomplicated; F19.282 Other psychoactive substance dependence with psychoactive substance-induced sleep disorder; F41.9 Anxiety disorder, unspecified; D50.9 Iron deficiency anemia, unspecified; J45.20 Mild intermittent asthma, uncomplicated; K21.9 Gastro-esophageal reflux disease without esophagitis; M41.9 Scoliosis, unspecified; M54.50 Low back pain, unspecified; G89.29 Other chronic pain; Z86.19 Personal history of other infectious and parasitic diseases; Z99.89 Dependence on other enabling machines and devices; Z88.8 Allergy status to other drugs, medicaments and biological substances; Z28.310 Unvaccinated for COVID-19; Z28.9 Immunization not carried out for unspecified reason
CPT/HCPCS: 36415; 80053; 81025; 85027; 86780; 87811; 93005; 93010; C9803-CS; Q0162; U0003; U0005

== ENCOUNTER 2022-08-24 10:50 | Inpatient (IN) | payer OTHER ==
[2022-08-24 12:20] VITALS: BMI 18.6
[2022-08-24] MEDS ORDERED: IBUPROFEN 600 MG TABLET (FP) PO PRN (13:38)
[2022-08-24] MEDS ORDERED: MAGNESIUM HYDROX 2400MG/30ML ORAL SUSPENSION 30 ML CUP PO PRN (13:38)
[2022-08-24] MEDS ORDERED: hydrOXYzine PAMOATE 25 MG CAPSULE (FP) PO PRN (13:38)
[2022-08-24] MEDS ORDERED: ONDANSETRON *ODT* 4 MG TABLET SL PRN (13:38)
[2022-08-24] MEDS ORDERED: BISMUTH SUBSALICYLATE 524 MG/30 ML PO PRN (13:38)
[2022-08-24] MEDS ORDERED: LOPERAMIDE HCL 2 MG CAPSULE PO PRN (13:38)
[2022-08-24] MEDS ORDERED: ACETAMINOPHEN 325 MG TABLET (FP) PO PRN (13:38)
[2022-08-24] MEDS ORDERED: NALOXONE HCL (KLOXXADO) 8 MG SPRAY NS PRN (13:38)
[2022-08-24] MEDS ORDERED: IBUPROFEN 400 MG TABLET (FP) PO PRN (13:38)
[2022-08-24] MEDS ORDERED: DICYCLOMINE HCL 10 MG CAPSULE PO PRN (13:38)
[2022-08-24] MEDS ORDERED: POLYETHYLENE GLYCOL (HEALTHYLAX) 3350 17 GM PACKET PO PRN (13:38)
[2022-08-24] MEDS ORDERED: NICOTINE 10 MG CARTRIDGE (INHALER) IH PRN (13:38)
[2022-08-24] MEDS ORDERED: BENZOCAINE/MENTHOL (CHLORASEPTIC ) LOZENGE MM PRN (13:38)
[2022-08-24] MEDS ORDERED: MAG HYDROX/AL HYDROX/SIMETH 30 ML UNIT-DOSE CUP PO PRN (13:38)
[2022-08-24] MEDS: NICOTINE 21 MG/24 HOURS TOPICAL PATCH TD SCH (14:55)
[2022-08-24] MEDS ORDERED: NICOTINE 21 MG/24 HOURS TOPICAL PATCH ONE (14:59)
[2022-08-24] MEDS: METHOCARBAMOL 500 MG TABLET PO PRN (17:38)
[2022-08-24] MEDS ORDERED: methaDONE HCL 10 MG TABLET (FOR DETOX USE ONLY) PO ONE (19:46)
[2022-08-24] MEDS: MELATONIN 5 MG TABLETS PO SCH (23:43)
[2022-08-24] MEDS: THIAMINE HCL 100 MG TABLET (FP) PO SCH (23:43)
[2022-08-25] MEDS: diazePAM 5 MG TABLET PO PRN ×4 (05:24→22:10)
[2022-08-25] MEDS: METHOCARBAMOL 500 MG TABLET PO PRN ×2 (07:13→22:10)
[2022-08-25] MEDS: ACETAMINOPHEN 325 MG TABLET (FP) PO PRN (07:14)
[2022-08-25] MEDS: PRENATAL VITAMINS W/ FOLIC ACID TABLET (FP) PO SCH (09:20)
[2022-08-25] MEDS: NICOTINE 21 MG/24 HOURS TOPICAL PATCH TD SCH (09:25)
[2022-08-25] MEDS: THIAMINE HCL 100 MG TABLET (FP) PO SCH (22:08)
[2022-08-25] MEDS: MELATONIN 5 MG TABLETS PO SCH (22:08)
[2022-08-26] MEDS: ACETAMINOPHEN 325 MG TABLET (FP) PO PRN (01:36)
[2022-08-26] MEDS: METHOCARBAMOL 500 MG TABLET PO PRN ×3 (01:45→22:44)
[2022-08-26] MEDS: diazePAM 5 MG TABLET PO PRN ×2 (02:25→06:42)
[2022-08-26] MEDS ORDERED: cloNIDine HCL 0.1 MG TABLET PO PRN (07:11)
[2022-08-26] MEDS: PRENATAL VITAMINS W/ FOLIC ACID TABLET (FP) PO SCH (09:32)
[2022-08-26] MEDS: cloNIDine HCL 0.1 MG TABLET PO PRN (09:32)
[2022-08-26] MEDS: NICOTINE 21 MG/24 HOURS TOPICAL PATCH TD SCH (09:33)
[2022-08-26] MEDS ORDERED: TRIMETHOBENZAMIDE HCL 200MG/2ML INJ IM PRN (09:49)
[2022-08-26] MEDS ORDERED: methaDONE HCL 10 MG TABLET (FOR DETOX USE ONLY) PO ONE (10:00)
[2022-08-26] MEDS ORDERED: amLODIPine BESYLATE 5 MG TABLET (FP) PO SCH (10:00)
[2022-08-26 15:44] LABS: ALBUMIN 3.7 g/dl (3.4-5.0); BLOOD UREA NITROGEN 9.4 mg/dL (7-18); CALCIUM 9.5 mg/dL (8.5-10.1)
[2022-08-26 15:49] LABS: BILIRUBIN,TOTAL 0.4 mg/dL (0.2-1); TOT PROT 9.2 g/dl (6.4-8.2)
[2022-08-26 16:09] LABS: HEMATOCRIT 32.6 % (32.4-45.2); HEMOGLOBIN 10.5 GM/dL (10.7-15.3); MCH 28.9 pg (25.7-33.7); MCHC 32.2 g/dl (32.0-36.0); MEAN CELL VOLUME 89.7 fl (80-96); MEAN PLT VOLUME 8.2 fl (7.5-11.1); PLATELET COUNT 513 10^3/uL (134-434); RBC 3.63 M/mm3 (3.60-5.2); RDW 15.4 % (11.6-15.6); WHITE BLOOD COUNT 5.1 K/mm3 (4.0-10.0)
[2022-08-26] MEDS: MELATONIN 5 MG TABLETS PO SCH (22:44)
[2022-08-26] MEDS: THIAMINE HCL 100 MG TABLET (FP) PO SCH (22:44)
[2022-08-27] MEDS: diazePAM 5 MG TABLET PO PRN ×2 (06:11→18:39)
[2022-08-27] MEDS: cloNIDine HCL 0.1 MG TABLET PO PRN (06:45)
[2022-08-27] MEDS: ASPIRIN 81 MG CHEWABLE TABLETS PO SCH (10:26)
[2022-08-27] MEDS: LACTULOSE 20 GM/30 ML UDC (FOR ORAL USE ONLY) PO SCH ×4 (10:26→22:09)
[2022-08-27] MEDS: amLODIPine BESYLATE 10 MG TABLET (FP) PO SCH (10:26)
[2022-08-27] MEDS: METHOCARBAMOL 500 MG TABLET PO PRN ×2 (10:26→22:11)
[2022-08-27] MEDS: LISINOPRIL 10 MG TABLET PO SCH ×2 (10:26→22:09)
[2022-08-27] MEDS: PRENATAL VITAMINS W/ FOLIC ACID TABLET (FP) PO SCH (10:27)
[2022-08-27] MEDS: NICOTINE 21 MG/24 HOURS TOPICAL PATCH TD SCH (10:27)
[2022-08-27] MEDS ORDERED: FERROUS SO4 300 MG/5 ML ORAL SOLN UNIT DOSE CUPS PO SCH (12:00)
[2022-08-27 21:10] VITALS: RESP 18
[2022-08-27] MEDS: THIAMINE HCL 100 MG TABLET (FP) PO SCH (22:09)
[2022-08-27] MEDS: MELATONIN 5 MG TABLETS PO SCH (22:09)
[2022-08-27] MEDS: ACETAMINOPHEN 325 MG TABLET (FP) PO PRN (22:14)
[2022-08-28 08:25] VITALS: BP 105/78; PULSE 69; TEMP 97.8
[2022-08-28] MEDS: LACTULOSE 20 GM/30 ML UDC (FOR ORAL USE ONLY) PO SCH (09:48)
[2022-08-28] MEDS: PRENATAL VITAMINS W/ FOLIC ACID TABLET (FP) PO SCH (09:48)
[2022-08-28] MEDS: ASPIRIN 81 MG CHEWABLE TABLETS PO SCH (09:48)
[2022-08-28] MEDS: NICOTINE 21 MG/24 HOURS TOPICAL PATCH TD SCH (09:48)
[2022-08-28] MEDS: amLODIPine BESYLATE 10 MG TABLET (FP) PO SCH (09:48)
[2022-08-28] MEDS: LISINOPRIL 10 MG TABLET PO SCH (09:48)
[2022-08-28] MEDS ORDERED: methaDONE HCL 10 MG TABLET (FOR DETOX USE ONLY) PO ONE (10:00)
== END 2022-08-28 09:20 | disposition left against medical advice (07) | DRG 770 ==
LOC: YASAS 10:50 → Y3N 14:13 → UNDOADMIN 14:13 → Y3N 08-25 08:38 → Y6N 08-26 01:41 → Y3N 08-26 01:41
PROVIDERS: ADMIT Allergy & Immunology; ATTEND Family Medicine
PROC: HZ2ZZZZ Detoxification Services for Substance Abuse Treatment (ICD-10-PCS; principal; 2022-08-24)
DX: F11.23 Opioid dependence with withdrawal (principal); F14.20 Cocaine dependence, uncomplicated; F12.20 Cannabis dependence, uncomplicated; F17.210 Nicotine dependence, cigarettes, uncomplicated; F31.9 Bipolar disorder, unspecified; F41.9 Anxiety disorder, unspecified; D50.9 Iron deficiency anemia, unspecified; J45.909 Unspecified asthma, uncomplicated; K21.9 Gastro-esophageal reflux disease without esophagitis; B18.2 Chronic viral hepatitis C; M54.9 Dorsalgia, unspecified; R10.84 Generalized abdominal pain; R11.2 Nausea with vomiting, unspecified; R26.89 Other abnormalities of gait and mobility; Z99.89 Dependence on other enabling machines and devices; Z86.69 Personal history of other diseases of the nervous system and sense organs; Z28.310 Unvaccinated for COVID-19; Z28.9 Immunization not carried out for unspecified reason
CPT/HCPCS: 36415; 80053; 82140; 83540; 85027; 86780; C9803-CS; U0003; U0005

== ENCOUNTER 2022-08-26 11:43 | Emergency (ER) | payer OTHER ==
[2022-08-26 11:59] VITALS: BMI 20.7
[2022-08-26] MEDS ORDERED: SODIUM CHLORIDE 0.9% 500 ML INFUS.BAG IV ONE (12:34)
[2022-08-26] MEDS ORDERED: MAG HYDROX/AL HYDROX/SIMETH 30 ML UNIT-DOSE CUP PO ONE (12:35)
[2022-08-26] MEDS ORDERED: FAMOTIDINE 20 MG/50 ML IVPB 20 MG/50 ML MG IVPB ONE ×2 (12:35→13:03)
[2022-08-26] MEDS ORDERED: cloNIDine HCL 0.1 MG TABLET PO ONE (12:41)
[2022-08-26] MEDS ORDERED: cloNIDine HCL 0.1 MG TABLET ONE (13:03)
[2022-08-26] MEDS ORDERED: MAG HYDROX/AL HYDROX/SIMETH 30 ML UNIT-DOSE CUP ONE (13:03)
[2022-08-26 14:51] LABS: CALCIUM 9.5 mg/dL (8.5-10.1)
[2022-08-26 14:52] LABS: ALBUMIN 3.6 g/dl (3.4-5.0); BLOOD UREA NITROGEN 8.4 mg/dL (7-18)
[2022-08-26 14:55] LABS: CREATININE 1.1 mg/dL (0.55-1.3)
[2022-08-26 14:57] LABS: BILIRUBIN,TOTAL 0.3 mg/dL (0.2-1); TOT PROT 9.4 g/dl (6.4-8.2)
[2022-08-26] MEDS ORDERED: methaDONE HCL 10 MG TABLET (FOR DETOX USE ONLY) PO ONE (14:57)
[2022-08-26 15:32] LABS: EOS % 0.1 % (0-4.5); HEMATOCRIT 30.4 % (32.4-45.2); HEMOGLOBIN 9.9 GM/dL (10.7-15.3); LYMPH % 15.2 % (8-40); MCH 28.7 pg (25.7-33.7); MCHC 32.4 g/dl (32.0-36.0); MEAN CELL VOLUME 88.6 fl (80-96); MEAN PLT VOLUME 7.9 fl (7.5-11.1); MONO % 3.7 % (3.8-10.2); PLATELET COUNT 508 10^3/uL (134-434); RBC 3.43 M/mm3 (3.60-5.2); RDW 15.5 % (11.6-15.6); WHITE BLOOD COUNT 5.6 K/mm3 (4.0-10.0)
[2022-08-26] MEDS ORDERED: methaDONE HCL 10 MG TABLET ONE (15:47)
[2022-08-26 17:51] VITALS: PULSE 76; TEMP 98.9
[2022-08-26 19:32] VITALS: BP 150/80; RESP 16
== END 2022-08-26 19:36 ==
LOC: JER 11:43
PROC: 3E033GC Introduction of Other Therapeutic Substance into Peripheral Vein, Percutaneous Approach (ICD-10-PCS; principal; 2022-08-26)
DX: F11.23 Opioid dependence with withdrawal (principal); R11.2 Nausea with vomiting, unspecified; R19.7 Diarrhea, unspecified
CPT/HCPCS: 36415; 73110-TC-RT-FY; 80053; 83690; 85025; 93005; 93010; 99284-25